=== PATIENT | female | born 1975 | race Caucasian/White ===

== ENCOUNTER 2020-08-04 08:24 | Inpatient (IN) | payer OTHER ==
[2020-08-04] MEDS ORDERED: ONDANSETRON *ODT* 4 MG TABLET SL PRN (09:48)
[2020-08-04] MEDS ORDERED: MAGNESIUM CITRATE 300 ML BOTTLE PO PRN (09:48)
[2020-08-04] MEDS ORDERED: MENTHOL/PHENOL 1 EACH UD MM PRN (09:48)
[2020-08-04] MEDS ORDERED: cloNIDine HCL 0.1 MG TABLET PO PRN (09:48)
[2020-08-04] MEDS ORDERED: ACETAMINOPHEN 325 MG TABLET (FP) PO PRN ×2 (09:48)
[2020-08-04] MEDS ORDERED: MAG HYDROX/AL HYDROX/SIMETH 30 ML UNIT-DOSE CUP PO PRN (09:48)
[2020-08-04] MEDS ORDERED: BISMUTH SUBSALICYLATE 524 MG/30 ML PO PRN (09:48)
[2020-08-04] MEDS ORDERED: MAGNESIUM HYDROX 2400MG/30ML ORAL SUSPENSION 30 ML CUP PO PRN (09:48)
[2020-08-04] MEDS ORDERED: IBUPROFEN 400 MG TABLET (FP) PO PRN (09:48)
[2020-08-04] MEDS ORDERED: hydrOXYzine PAMOATE 25 MG CAPSULE (FP) PO SCH (10:00)
[2020-08-04] MEDS ORDERED: METHADONE HCL 10 MG TABLET (FOR DETOX USE ONLY) PO ONE (10:00)
[2020-08-04] MEDS ORDERED: HYDROCORTISONE 0.5% TOPICAL OINTMENT TUBE TP PRN (10:13)
[2020-08-04] MEDS: PRENATAL VITAMINS W/ FOLIC ACID TABLET (FP) PO SCH (10:57)
[2020-08-04] MEDS ORDERED: HYDROCORTISONE 0.5% TOPICAL CREAM 30 GM TUBE TP PRN (13:12)
[2020-08-04 13:20] LABS: HEMOGLOBIN 11.7 GM/dL (10.7-15.3); MCH 27.3 pg (25.7-33.7); MCHC 33.4 g/dl (32.0-36.0); MEAN CELL VOLUME 81.6 fl (80-96); MEAN PLT VOLUME 8.2 fl (7.5-11.1); PLATELET COUNT 365 K/MM3 (134-434); RBC 4.29 M/mm3 (3.60-5.2); RDW 16.8 % (11.6-15.6); WHITE BLOOD COUNT 8.4 K/mm3 (4.0-10.0)
[2020-08-04 13:31] LABS: ALBUMIN 3.8 g/dl (3.4-5.0); CALCIUM 8.8 mg/dL (8.5-10.1)
[2020-08-04 13:32] LABS: BLOOD UREA NITROGEN 8.6 mg/dL (7-18)
[2020-08-04 13:35] LABS: CREATININE 0.7 mg/dL (0.55-1.3)
[2020-08-04 13:36] LABS: BILIRUBIN,TOTAL 0.3 mg/dL (0.2-1); TOT PROT 7.3 g/dl (6.4-8.2)
[2020-08-04] MEDS: MINOXIDIL 2.5 MG TABLET PO SCH ×2 (15:35→21:33)
[2020-08-04] MEDS: hydrOXYzine PAMOATE 25 MG CAPSULE (FP) PO PRN (17:36)
[2020-08-04] MEDS: METHOCARBAMOL 500 MG TABLET PO PRN (17:36)
[2020-08-04] MEDS: MONTELUKAST NA 10 MG TABLET PO SCH (21:32)
[2020-08-04] MEDS: QUEtiapine FUMARATE 50 MG TABLET PO SCH (21:32)
[2020-08-04] MEDS: THIAMINE HCL 100 MG TABLET (FP) PO SCH (21:32)
[2020-08-04] MEDS: MELATONIN 5 MG TABLETS PO SCH (21:33)
[2020-08-05] MEDS ORDERED: METHADONE HCL 10 MG TABLET (FOR DETOX USE ONLY) ONE (08:43)
[2020-08-05] MEDS ORDERED: METHADONE HCL 5 MG TABLET (FOR DETOX USE ONLY) ONE (08:43)
[2020-08-05] MEDS: MINOXIDIL 2.5 MG TABLET PO SCH ×2 (09:11→22:01)
[2020-08-05] MEDS: PRENATAL VITAMINS W/ FOLIC ACID TABLET (FP) PO SCH (09:12)
[2020-08-05] MEDS: THEOPHYLLINE ANHYDROUS 200 MG CAP.ER.24H PO SCH (09:12)
[2020-08-05] MEDS: hydrOXYzine PAMOATE 25 MG CAPSULE (FP) PO PRN (09:13)
[2020-08-05] MEDS: METHOCARBAMOL 500 MG TABLET PO PRN ×2 (09:13→17:21)
[2020-08-05] MEDS ORDERED: METHADONE (DETOX) 20 MG, METHADONE (DETOX) 5 MG PO ONE (10:00)
[2020-08-05] MEDS: diazePAM 5 MG TABLET PO PRN ×3 (11:52→22:03)
[2020-08-05] MEDS: QUEtiapine FUMARATE 50 MG TABLET PO SCH (22:01)
[2020-08-05] MEDS: MELATONIN 5 MG TABLETS PO SCH (22:02)
[2020-08-05] MEDS: THIAMINE HCL 100 MG TABLET (FP) PO SCH (22:02)
[2020-08-05] MEDS: MONTELUKAST NA 10 MG TABLET PO SCH (22:27)
[2020-08-06] MEDS ORDERED: METHADONE HCL 10 MG TABLET (FOR DETOX USE ONLY) PO ONE (10:00)
[2020-08-06] MEDS: diazePAM 5 MG TABLET PO PRN ×4 (10:16→22:40)
[2020-08-06] MEDS: hydrOXYzine PAMOATE 25 MG CAPSULE (FP) PO PRN (10:17)
[2020-08-06] MEDS: MINOXIDIL 2.5 MG TABLET PO SCH ×2 (10:17→22:17)
[2020-08-06] MEDS: THEOPHYLLINE ANHYDROUS 200 MG CAP.ER.24H PO SCH (10:17)
[2020-08-06] MEDS: METHOCARBAMOL 500 MG TABLET PO PRN ×2 (10:17→18:35)
[2020-08-06] MEDS: PRENATAL VITAMINS W/ FOLIC ACID TABLET (FP) PO SCH (10:17)
[2020-08-06] MEDS: HYDROCORTISONE 1% TOPICAL OINT 30 GM TUBE TP PRN (14:05)
[2020-08-06] MEDS: MELATONIN 5 MG TABLETS PO SCH (22:15)
[2020-08-06] MEDS: THIAMINE HCL 100 MG TABLET (FP) PO SCH (22:15)
[2020-08-06] MEDS: QUEtiapine FUMARATE 50 MG TABLET PO SCH (22:15)
[2020-08-06] MEDS: MONTELUKAST NA 10 MG TABLET PO SCH (22:16)
[2020-08-07] MEDS: METHOCARBAMOL 500 MG TABLET PO PRN ×3 (06:01→18:39)
[2020-08-07] MEDS: diazePAM 5 MG TABLET PO PRN ×5 (06:01→22:40)
[2020-08-07] MEDS: HYDROCORTISONE 1% TOPICAL OINT 30 GM TUBE TP PRN (09:04)
[2020-08-07] MEDS ORDERED: METHADONE HCL 5 MG TABLET (FOR DETOX USE ONLY) ONE (09:36)
[2020-08-07] MEDS ORDERED: METHADONE HCL 10 MG TABLET (FOR DETOX USE ONLY) ONE (09:36)
[2020-08-07] MEDS ORDERED: METHADONE (DETOX) 10 MG, METHADONE (DETOX) 5 MG PO ONE (10:00)
[2020-08-07] MEDS: MINOXIDIL 2.5 MG TABLET PO SCH ×2 (10:04→22:09)
[2020-08-07] MEDS: THEOPHYLLINE ANHYDROUS 200 MG CAP.ER.24H PO SCH (10:04)
[2020-08-07] MEDS: hydrOXYzine PAMOATE 25 MG CAPSULE (FP) PO PRN (10:04)
[2020-08-07] MEDS: PRENATAL VITAMINS W/ FOLIC ACID TABLET (FP) PO SCH (10:04)
[2020-08-07 16:07] LABS: SARS-CoV-2 NAA Not Detected (Not Detected)
[2020-08-07] MEDS: ALBUTEROL SO4 HFA INHALER IH PRN (19:38)
[2020-08-07] MEDS: MONTELUKAST NA 10 MG TABLET PO SCH (22:08)
[2020-08-07] MEDS: MELATONIN 5 MG TABLETS PO SCH (22:08)
[2020-08-07] MEDS: QUEtiapine FUMARATE 50 MG TABLET PO SCH (22:08)
[2020-08-07] MEDS: THIAMINE HCL 100 MG TABLET (FP) PO SCH (22:08)
[2020-08-08] MEDS: diazePAM 5 MG TABLET PO PRN (05:31)
[2020-08-08] MEDS: METHOCARBAMOL 500 MG TABLET PO PRN ×3 (05:31→17:41)
[2020-08-08] MEDS: PRENATAL VITAMINS W/ FOLIC ACID TABLET (FP) PO SCH (09:40)
[2020-08-08] MEDS: THEOPHYLLINE ANHYDROUS 200 MG CAP.ER.24H PO SCH (09:41)
[2020-08-08] MEDS: MINOXIDIL 2.5 MG TABLET PO SCH ×2 (09:41→22:05)
[2020-08-08] MEDS ORDERED: METHADONE HCL 10 MG TABLET (FOR DETOX USE ONLY) PO ONE (10:00)
[2020-08-08] MEDS: hydrOXYzine PAMOATE 25 MG CAPSULE (FP) PO PRN ×2 (11:05→17:40)
[2020-08-08] MEDS ORDERED: diazePAM 5 MG TABLET PO ONE (17:06)
[2020-08-08] MEDS: ALBUTEROL SO4 HFA INHALER IH PRN ×2 (17:39→22:05)
[2020-08-08] MEDS: THIAMINE HCL 100 MG TABLET (FP) PO SCH (22:05)
[2020-08-08] MEDS: MELATONIN 5 MG TABLETS PO SCH (22:05)
[2020-08-08] MEDS: MONTELUKAST NA 10 MG TABLET PO SCH (22:05)
[2020-08-08] MEDS: QUEtiapine FUMARATE 50 MG TABLET PO SCH (22:06)
[2020-08-09] MEDS: METHOCARBAMOL 500 MG TABLET PO PRN ×2 (05:52→11:32)
[2020-08-09] MEDS: hydrOXYzine PAMOATE 25 MG CAPSULE (FP) PO PRN (05:52)
[2020-08-09] MEDS ORDERED: METHADONE HCL 5 MG TABLET (FOR DETOX USE ONLY) PO ONE (06:00)
[2020-08-09] MEDS: MINOXIDIL 2.5 MG TABLET PO SCH (09:14)
[2020-08-09] MEDS: PRENATAL VITAMINS W/ FOLIC ACID TABLET (FP) PO SCH (09:15)
[2020-08-09] MEDS: THEOPHYLLINE ANHYDROUS 200 MG CAP.ER.24H PO SCH (09:15)
[2020-08-09 12:35] VITALS: BP 136/92; PULSE 100; TEMP 98.3
== END 2020-08-09 12:37 | disposition other institution (70) | DRG 773 ==
LOC: YASAS 08:24 → EDBD 08:24 → Y3N 10:01
PROVIDERS: ADMIT Allergy & Immunology; ATTEND Allergy & Immunology
PROC: HZ2ZZZZ Detoxification Services for Substance Abuse Treatment (ICD-10-PCS; principal; 2020-08-04)
DX: F11.23 Opioid dependence with withdrawal (principal); F14.20 Cocaine dependence, uncomplicated; F13.20 Sedative, hypnotic or anxiolytic dependence, uncomplicated; F12.20 Cannabis dependence, uncomplicated; F19.24 Other psychoactive substance dependence with psychoactive substance-induced mood disorder; F41.9 Anxiety disorder, unspecified; F32.9 Major depressive disorder, single episode, unspecified; F70 Mild intellectual disabilities; G47.00 Insomnia, unspecified; L30.9 Dermatitis, unspecified; L68.0 Hirsutism; L65.9 Nonscarring hair loss, unspecified; Z91.14 Patient's other noncompliance with medication regimen; Z88.0 Allergy status to penicillin; Z91.012 Allergy to eggs
CPT/HCPCS: 36415; 80053; 81025; 85027; 86780; C9803; J0735; U0003; U0005

== ENCOUNTER 2020-08-09 12:48 | Inpatient (IN) | payer OTHER ==
[2020-08-09] MEDS ORDERED: MENTHOL/PHENOL 1 EACH UD MM PRN (16:07)
[2020-08-09] MEDS ORDERED: LOPERAMIDE HCL 2 MG CAPSULE PO PRN (16:07)
[2020-08-09] MEDS ORDERED: P-EPHED 60MG/TRIPROLIDI 2.5MG TABLET PO PRN (16:07)
[2020-08-09] MEDS ORDERED: ACETAMINOPHEN 325 MG TABLET (FP) PO PRN (16:07)
[2020-08-09] MEDS ORDERED: MAGNESIUM HYDROX 2400MG/30ML ORAL SUSPENSION 30 ML CUP PO PRN (16:07)
[2020-08-09] MEDS ORDERED: MAG HYDROX/AL HYDROX/SIMETH 30 ML UNIT-DOSE CUP PO PRN (16:07)
[2020-08-09] MEDS ORDERED: NICOTINE POLACRILEX 2 MG GUM BUC PRN (16:07)
[2020-08-09] MEDS ORDERED: MAGNESIUM CITRATE 300 ML BOTTLE PO PRN (16:07)
[2020-08-09] MEDS: METHOCARBAMOL 500 MG TABLET PO SCH (21:55)
[2020-08-09] MEDS: QUEtiapine FUMARATE 50 MG TABLET PO SCH (21:55)
[2020-08-09] MEDS: THIAMINE HCL 100 MG TABLET (FP) PO SCH (21:56)
[2020-08-09] MEDS: MELATONIN 5 MG TABLETS PO SCH (21:56)
[2020-08-09] MEDS: BACITRACIN 0.9 GM PACKET TP SCH (21:57)
[2020-08-09] MEDS: hydrOXYzine PAMOATE 25 MG CAPSULE (FP) PO PRN (21:58)
[2020-08-10] MEDS: METHOCARBAMOL 500 MG TABLET PO SCH ×3 (06:15→21:21)
[2020-08-10] MEDS: PRENATAL VITAMINS W/ FOLIC ACID TABLET (FP) PO SCH (10:49)
[2020-08-10] MEDS: hydrOXYzine PAMOATE 25 MG CAPSULE (FP) PO PRN ×2 (10:49→13:47)
[2020-08-10] MEDS: IBUPROFEN 400 MG TABLET (FP) PO PRN (10:50)
[2020-08-10] MEDS: BACITRACIN 0.9 GM PACKET TP SCH ×2 (10:50→21:21)
[2020-08-10] MEDS: NICOTINE 7 MG/24 HOURS TOPICAL PATCH TD SCH (10:50)
[2020-08-10] MEDS ORDERED: PNEUMOC 13-VAL CONJ-DIP CRM/PF 0.5 ML DISP.SYRIN IM ONE (12:00)
[2020-08-10] MEDS ORDERED: PNEUMOCOCCAL 23 VACCINE 0.5 ML VIAL IM ONE (12:00)
[2020-08-10] MEDS: HYDROCORTISONE 1% TOPICAL CREAM 30 GM TUBE TP SCH ×2 (12:21→21:22)
[2020-08-10] MEDS: COLLOIDAL OATMEAL 1 BAR EACH TP PRN (14:08)
[2020-08-10] MEDS ORDERED: MINERAL OIL ENEMA 133 ML ENEMA PR ONE (19:22)
[2020-08-10] MEDS: QUEtiapine FUMARATE 50 MG TABLET PO SCH (21:21)
[2020-08-10] MEDS: MELATONIN 5 MG TABLETS PO SCH (21:21)
[2020-08-10] MEDS: DOCUSATE SODIUM 100 MG CAPSULE (FP) PO SCH (21:21)
[2020-08-10] MEDS: THIAMINE HCL 100 MG TABLET (FP) PO SCH (21:21)
[2020-08-11] MEDS: METHOCARBAMOL 500 MG TABLET PO SCH ×3 (06:11→21:18)
[2020-08-11] MEDS: BACITRACIN 0.9 GM PACKET TP SCH ×2 (10:42→21:16)
[2020-08-11] MEDS: NICOTINE 7 MG/24 HOURS TOPICAL PATCH TD SCH (10:43)
[2020-08-11] MEDS: IBUPROFEN 400 MG TABLET (FP) PO PRN (10:43)
[2020-08-11] MEDS: PRENATAL VITAMINS W/ FOLIC ACID TABLET (FP) PO SCH (10:43)
[2020-08-11] MEDS: TETRAHYDROZOLINE HCL EYE DROPS OD PRN (10:44)
[2020-08-11] MEDS: hydrOXYzine PAMOATE 25 MG CAPSULE (FP) PO PRN ×3 (10:44→21:16)
[2020-08-11] MEDS: HYDROCORTISONE 1% TOPICAL CREAM 30 GM TUBE TP SCH (10:48)
[2020-08-11] MEDS: HYDROCORTISONE 1% TOPICAL OINT 30 GM TUBE TP SCH ×2 (12:17→21:17)
[2020-08-11] MEDS: MELATONIN 5 MG TABLETS PO SCH (21:16)
[2020-08-11] MEDS: QUEtiapine FUMARATE 50 MG TABLET PO SCH (21:16)
[2020-08-11] MEDS: DOCUSATE SODIUM 100 MG CAPSULE (FP) PO SCH (21:16)
[2020-08-11] MEDS: THIAMINE HCL 100 MG TABLET (FP) PO SCH (21:16)
[2020-08-12] MEDS: METHOCARBAMOL 500 MG TABLET PO SCH ×3 (06:22→22:07)
[2020-08-12] MEDS: HYDROCORTISONE 1% TOPICAL OINT 30 GM TUBE TP SCH ×2 (10:49→22:06)
[2020-08-12] MEDS: PRENATAL VITAMINS W/ FOLIC ACID TABLET (FP) PO SCH (10:49)
[2020-08-12] MEDS: hydrOXYzine PAMOATE 25 MG CAPSULE (FP) PO PRN ×2 (10:49→14:34)
[2020-08-12] MEDS: BACITRACIN 0.9 GM PACKET TP SCH ×2 (10:49→22:06)
[2020-08-12] MEDS: NICOTINE 7 MG/24 HOURS TOPICAL PATCH TD SCH (10:49)
[2020-08-12] MEDS: TETRAHYDROZOLINE HCL EYE DROPS OD PRN (10:50)
[2020-08-12] MEDS ORDERED: BUPRENORPHINE/NALOXONE 2 MG/0.5 MG FILM PACKET SL ONE (12:30)
[2020-08-12] MEDS: MINOXIDIL 2.5 MG TABLET PO SCH ×2 (14:35→22:07)
[2020-08-12] MEDS: DOCUSATE SODIUM 100 MG CAPSULE (FP) PO SCH (22:07)
[2020-08-12] MEDS: QUEtiapine FUMARATE 50 MG TABLET PO SCH (22:07)
[2020-08-12] MEDS: THIAMINE HCL 100 MG TABLET (FP) PO SCH (22:07)
[2020-08-12] MEDS: MELATONIN 5 MG TABLETS PO SCH (22:08)
[2020-08-12] MEDS: MONTELUKAST NA 10 MG TABLET PO SCH (22:10)
[2020-08-13] MEDS: METHOCARBAMOL 500 MG TABLET PO SCH ×3 (06:25→22:06)
[2020-08-13] MEDS ORDERED: PT OWN MED DRAWER 7, Y5N ONE ×2 (09:09→21:06)
[2020-08-13] MEDS: PRENATAL VITAMINS W/ FOLIC ACID TABLET (FP) PO SCH (10:35)
[2020-08-13] MEDS: BACITRACIN 0.9 GM PACKET TP SCH ×2 (10:35→22:09)
[2020-08-13] MEDS: HYDROCORTISONE 1% TOPICAL OINT 30 GM TUBE TP SCH ×2 (10:36→22:09)
[2020-08-13] MEDS: MINOXIDIL 2.5 MG TABLET PO SCH ×2 (10:37→22:09)
[2020-08-13] MEDS: NICOTINE 7 MG/24 HOURS TOPICAL PATCH TD SCH (10:38)
[2020-08-13] MEDS: BUPRENORPHINE/NALOXONE 4 MG/1 MG FILM PACKET SL SCH ×2 (10:38→22:08)
[2020-08-13] MEDS: hydrOXYzine PAMOATE 25 MG CAPSULE (FP) PO PRN (10:39)
[2020-08-13] MEDS ORDERED: MASKS NR ONE (17:26)
[2020-08-13] MEDS: MELATONIN 5 MG TABLETS PO SCH (22:05)
[2020-08-13] MEDS: MONTELUKAST NA 10 MG TABLET PO SCH (22:05)
[2020-08-13] MEDS: DOCUSATE SODIUM 100 MG CAPSULE (FP) PO SCH (22:05)
[2020-08-13] MEDS: QUEtiapine FUMARATE 50 MG TABLET PO SCH (22:05)
[2020-08-13] MEDS: THIAMINE HCL 100 MG TABLET (FP) PO SCH (22:06)
[2020-08-14] MEDS: METHOCARBAMOL 500 MG TABLET PO SCH ×3 (06:43→21:09)
[2020-08-14] MEDS: PRENATAL VITAMINS W/ FOLIC ACID TABLET (FP) PO SCH (10:47)
[2020-08-14] MEDS: NICOTINE 7 MG/24 HOURS TOPICAL PATCH TD SCH (10:47)
[2020-08-14] MEDS: BUPRENORPHINE/NALOXONE 4 MG/1 MG FILM PACKET SL SCH ×2 (10:48→21:09)
[2020-08-14] MEDS: MINOXIDIL 2.5 MG TABLET PO SCH ×2 (10:48→21:12)
[2020-08-14] MEDS: BACITRACIN 0.9 GM PACKET TP SCH ×2 (10:48→21:10)
[2020-08-14] MEDS: HYDROCORTISONE 1% TOPICAL OINT 30 GM TUBE TP SCH ×2 (10:49→21:11)
[2020-08-14 10:58] LABS: HIV INTERPRETATION NEGATIVE (NEGATIVE)
[2020-08-14] MEDS: ALBUTEROL SO4 HFA INHALER IH PRN (18:16)
[2020-08-14] MEDS: hydrOXYzine PAMOATE 25 MG CAPSULE (FP) PO PRN (20:17)
[2020-08-14] MEDS: MONTELUKAST NA 10 MG TABLET PO SCH (21:09)
[2020-08-14] MEDS: MELATONIN 5 MG TABLETS PO SCH (21:09)
[2020-08-14] MEDS: QUEtiapine FUMARATE 50 MG TABLET PO SCH (21:09)
[2020-08-14] MEDS: DOCUSATE SODIUM 100 MG CAPSULE (FP) PO SCH (21:09)
[2020-08-14] MEDS: THIAMINE HCL 100 MG TABLET (FP) PO SCH (21:11)
[2020-08-14] MEDS ORDERED: PT OWN MED DRAWER 7, Y5N ONE (21:12)
[2020-08-15] MEDS: METHOCARBAMOL 500 MG TABLET PO SCH ×3 (06:23→21:13)
[2020-08-15] MEDS: PRENATAL VITAMINS W/ FOLIC ACID TABLET (FP) PO SCH (10:14)
[2020-08-15] MEDS: BUPRENORPHINE/NALOXONE 4 MG/1 MG FILM PACKET SL SCH ×2 (10:14→21:12)
[2020-08-15] MEDS: guaiFENesin 200 MG/10 ML 10 ML UNIT-DOSE CUPS PO PRN ×2 (10:14→21:51)
[2020-08-15] MEDS: NICOTINE 7 MG/24 HOURS TOPICAL PATCH TD SCH (10:15)
[2020-08-15] MEDS: HYDROCORTISONE 1% TOPICAL OINT 30 GM TUBE TP SCH ×2 (10:15→21:14)
[2020-08-15] MEDS: BACITRACIN 0.9 GM PACKET TP SCH ×2 (10:15→21:14)
[2020-08-15] MEDS: MINOXIDIL 2.5 MG TABLET PO SCH ×2 (10:15→21:13)
[2020-08-15] MEDS: COLLOIDAL OATMEAL 1 BAR EACH TP PRN (14:02)
[2020-08-15] MEDS: THIAMINE HCL 100 MG TABLET (FP) PO SCH (21:11)
[2020-08-15] MEDS: MELATONIN 5 MG TABLETS PO SCH (21:11)
[2020-08-15] MEDS: MONTELUKAST NA 10 MG TABLET PO SCH (21:13)
[2020-08-15] MEDS: DOCUSATE SODIUM 100 MG CAPSULE (FP) PO SCH (21:13)
[2020-08-15] MEDS: QUEtiapine FUMARATE 200 MG TABLET PO SCH (21:14)
[2020-08-16] MEDS: hydrOXYzine PAMOATE 25 MG CAPSULE (FP) PO PRN ×3 (06:12→13:53)
[2020-08-16] MEDS: METHOCARBAMOL 500 MG TABLET PO SCH ×3 (06:12→21:44)
[2020-08-16] MEDS: BUPRENORPHINE/NALOXONE 4 MG/1 MG FILM PACKET SL SCH ×3 (10:23→21:47)
[2020-08-16] MEDS: PRENATAL VITAMINS W/ FOLIC ACID TABLET (FP) PO SCH (10:23)
[2020-08-16] MEDS: NICOTINE 7 MG/24 HOURS TOPICAL PATCH TD SCH (10:23)
[2020-08-16] MEDS: HYDROCORTISONE 1% TOPICAL OINT 30 GM TUBE TP SCH ×2 (10:24→21:45)
[2020-08-16] MEDS: BACITRACIN 0.9 GM PACKET TP SCH ×2 (10:24→21:43)
[2020-08-16] MEDS: MINOXIDIL 2.5 MG TABLET PO SCH ×2 (10:24→21:45)
[2020-08-16] MEDS: ALBUTEROL SO4 HFA INHALER IH PRN (18:15)
[2020-08-16] MEDS: DOCUSATE SODIUM 100 MG CAPSULE (FP) PO SCH (21:43)
[2020-08-16] MEDS: MELATONIN 5 MG TABLETS PO SCH (21:44)
[2020-08-16] MEDS: THIAMINE HCL 100 MG TABLET (FP) PO SCH (21:44)
[2020-08-16] MEDS: MONTELUKAST NA 10 MG TABLET PO SCH (21:44)
[2020-08-16] MEDS: QUEtiapine FUMARATE 200 MG TABLET PO SCH (21:44)
[2020-08-16] MEDS: guaiFENesin 200 MG/10 ML 10 ML UNIT-DOSE CUPS PO PRN (21:48)
[2020-08-17] MEDS: METHOCARBAMOL 500 MG TABLET PO SCH ×3 (06:26→21:17)
[2020-08-17] MEDS: BUPRENORPHINE/NALOXONE 4 MG/1 MG FILM PACKET SL SCH ×3 (06:26→21:18)
[2020-08-17] MEDS: BACITRACIN 0.9 GM PACKET TP SCH ×3 (09:58→21:19)
[2020-08-17] MEDS: PRENATAL VITAMINS W/ FOLIC ACID TABLET (FP) PO SCH (09:58)
[2020-08-17] MEDS: MINOXIDIL 2.5 MG TABLET PO SCH ×2 (09:58→21:18)
[2020-08-17] MEDS: HYDROCORTISONE 1% TOPICAL OINT 30 GM TUBE TP SCH ×2 (09:59→21:20)
[2020-08-17] MEDS: NICOTINE 7 MG/24 HOURS TOPICAL PATCH TD SCH (09:59)
[2020-08-17] MEDS: guaiFENesin 200 MG/10 ML 10 ML UNIT-DOSE CUPS PO PRN (14:05)
[2020-08-17] MEDS: hydrOXYzine PAMOATE 25 MG CAPSULE (FP) PO PRN (14:05)
[2020-08-17] MEDS: MONTELUKAST NA 10 MG TABLET PO SCH (21:17)
[2020-08-17] MEDS: DOCUSATE SODIUM 100 MG CAPSULE (FP) PO SCH (21:17)
[2020-08-17] MEDS: MELATONIN 5 MG TABLETS PO SCH (21:17)
[2020-08-17] MEDS: QUEtiapine FUMARATE 200 MG TABLET PO SCH (21:17)
[2020-08-17] MEDS: THIAMINE HCL 100 MG TABLET (FP) PO SCH (21:17)
[2020-08-18] MEDS: METHOCARBAMOL 500 MG TABLET PO SCH ×3 (06:17→21:07)
[2020-08-18] MEDS: BUPRENORPHINE/NALOXONE 4 MG/1 MG FILM PACKET SL SCH ×3 (06:17→21:06)
[2020-08-18] MEDS: PRENATAL VITAMINS W/ FOLIC ACID TABLET (FP) PO SCH (10:16)
[2020-08-18] MEDS: hydrOXYzine PAMOATE 25 MG CAPSULE (FP) PO PRN (10:16)
[2020-08-18] MEDS: BACITRACIN 0.9 GM PACKET TP SCH ×3 (10:17→21:08)
[2020-08-18] MEDS: MINOXIDIL 2.5 MG TABLET PO SCH ×2 (10:17→21:07)
[2020-08-18] MEDS: NICOTINE 7 MG/24 HOURS TOPICAL PATCH TD SCH (10:17)
[2020-08-18] MEDS: HYDROCORTISONE 1% TOPICAL OINT 30 GM TUBE TP SCH (10:17)
[2020-08-18] MEDS: MONTELUKAST NA 10 MG TABLET PO SCH (21:07)
[2020-08-18] MEDS: QUEtiapine FUMARATE 200 MG TABLET PO SCH (21:07)
[2020-08-18] MEDS: THIAMINE HCL 100 MG TABLET (FP) PO SCH (21:07)
[2020-08-18] MEDS: MELATONIN 5 MG TABLETS PO SCH (21:07)
[2020-08-18] MEDS: DOCUSATE SODIUM 100 MG CAPSULE (FP) PO SCH (21:08)
[2020-08-19] MEDS: BUPRENORPHINE/NALOXONE 4 MG/1 MG FILM PACKET SL SCH (06:24)
[2020-08-19] MEDS: METHOCARBAMOL 500 MG TABLET PO SCH ×3 (06:24→21:23)
[2020-08-19] MEDS ORDERED: ONDANSETRON *ODT* 4 MG TABLET SL PRN (08:40)
[2020-08-19] MEDS ORDERED: BUPRENORPHINE/NALOXONE 4 MG/1 MG FILM PACKET SL ONE (10:00)
[2020-08-19] MEDS: NICOTINE 7 MG/24 HOURS TOPICAL PATCH TD SCH (10:11)
[2020-08-19] MEDS: MINOXIDIL 2.5 MG TABLET PO SCH ×2 (10:11→21:23)
[2020-08-19] MEDS: PRENATAL VITAMINS W/ FOLIC ACID TABLET (FP) PO SCH (10:11)
[2020-08-19] MEDS: BACITRACIN 0.9 GM PACKET TP SCH ×3 (10:12→21:24)
[2020-08-19] MEDS: IBUPROFEN 400 MG TABLET (FP) PO PRN (17:09)
[2020-08-19] MEDS: BUPRENORPHINE/NALOXONE 8 MG/2 MG FILM PACKET SL SCH (17:10)
[2020-08-19] MEDS: DOCUSATE SODIUM 100 MG CAPSULE (FP) PO SCH (21:23)
[2020-08-19] MEDS: QUEtiapine FUMARATE 200 MG TABLET PO SCH (21:23)
[2020-08-19] MEDS: THIAMINE HCL 100 MG TABLET (FP) PO SCH (21:23)
[2020-08-19] MEDS: MELATONIN 5 MG TABLETS PO SCH (21:23)
[2020-08-19] MEDS: MONTELUKAST NA 10 MG TABLET PO SCH (21:23)
[2020-08-20] MEDS: METHOCARBAMOL 500 MG TABLET PO SCH ×3 (06:08→21:13)
[2020-08-20] MEDS: MINOXIDIL 2.5 MG TABLET PO SCH ×2 (10:17→21:15)
[2020-08-20] MEDS: BACITRACIN 0.9 GM PACKET TP SCH ×3 (10:17→21:15)
[2020-08-20] MEDS: PRENATAL VITAMINS W/ FOLIC ACID TABLET (FP) PO SCH (10:17)
[2020-08-20] MEDS: NICOTINE 7 MG/24 HOURS TOPICAL PATCH TD SCH (10:18)
[2020-08-20] MEDS: BUPRENORPHINE/NALOXONE 8 MG/2 MG FILM PACKET SL SCH ×2 (10:18→17:11)
[2020-08-20] MEDS: hydrOXYzine PAMOATE 25 MG CAPSULE (FP) PO PRN ×2 (13:41→21:14)
[2020-08-20] MEDS: THIAMINE HCL 100 MG TABLET (FP) PO SCH (21:11)
[2020-08-20] MEDS: SUVOREXANT 10 MG TABLET PO PRN (21:12)
[2020-08-20] MEDS: DOCUSATE SODIUM 100 MG CAPSULE (FP) PO SCH (21:12)
[2020-08-20] MEDS: MONTELUKAST NA 10 MG TABLET PO SCH (21:13)
[2020-08-20] MEDS: QUEtiapine FUMARATE 200 MG TABLET PO SCH (21:13)
[2020-08-21] MEDS: METHOCARBAMOL 500 MG TABLET PO SCH ×3 (06:16→21:37)
[2020-08-21] MEDS: BUPRENORPHINE/NALOXONE 8 MG/2 MG FILM PACKET SL SCH ×2 (10:24→17:45)
[2020-08-21] MEDS: PRENATAL VITAMINS W/ FOLIC ACID TABLET (FP) PO SCH (10:24)
[2020-08-21] MEDS: BACITRACIN 0.9 GM PACKET TP SCH ×3 (10:24→21:36)
[2020-08-21] MEDS: NICOTINE 7 MG/24 HOURS TOPICAL PATCH TD SCH (10:25)
[2020-08-21] MEDS: MINOXIDIL 2.5 MG TABLET PO SCH ×2 (10:25→21:37)
[2020-08-21] MEDS: hydrOXYzine PAMOATE 25 MG CAPSULE (FP) PO PRN ×2 (10:26→13:45)
[2020-08-21] MEDS: ALBUTEROL SO4 HFA INHALER IH PRN (10:27)
[2020-08-21] MEDS: COLLOIDAL OATMEAL 1 BAR EACH TP PRN (17:57)
[2020-08-21] MEDS: THIAMINE HCL 100 MG TABLET (FP) PO SCH (21:37)
[2020-08-21] MEDS: QUEtiapine FUMARATE 200 MG TABLET PO SCH (21:37)
[2020-08-21] MEDS: MONTELUKAST NA 10 MG TABLET PO SCH (21:37)
[2020-08-21] MEDS: DOCUSATE SODIUM 100 MG CAPSULE (FP) PO SCH (21:39)
[2020-08-21] MEDS: SUVOREXANT 10 MG TABLET PO PRN (21:39)
[2020-08-22] MEDS: METHOCARBAMOL 500 MG TABLET PO SCH ×3 (06:33→21:16)
[2020-08-22] MEDS: BUPRENORPHINE/NALOXONE 8 MG/2 MG FILM PACKET SL SCH ×2 (10:08→17:46)
[2020-08-22] MEDS: MINOXIDIL 2.5 MG TABLET PO SCH ×2 (10:08→21:17)
[2020-08-22] MEDS: PRENATAL VITAMINS W/ FOLIC ACID TABLET (FP) PO SCH (10:08)
[2020-08-22] MEDS: BACITRACIN 0.9 GM PACKET TP SCH ×3 (10:08→21:17)
[2020-08-22] MEDS: NICOTINE 7 MG/24 HOURS TOPICAL PATCH TD SCH (10:08)
[2020-08-22] MEDS: hydrOXYzine PAMOATE 25 MG CAPSULE (FP) PO PRN ×2 (10:09→13:43)
[2020-08-22] MEDS ORDERED: PT OWN MED DRAWER 7, Y5N ONE (14:15)
[2020-08-22] MEDS: QUEtiapine FUMARATE 200 MG TABLET PO SCH (21:15)
[2020-08-22] MEDS: SUVOREXANT 10 MG TABLET PO PRN (21:15)
[2020-08-22] MEDS: THIAMINE HCL 100 MG TABLET (FP) PO SCH (21:15)
[2020-08-22] MEDS: MONTELUKAST NA 10 MG TABLET PO SCH (21:16)
[2020-08-22] MEDS: DOCUSATE SODIUM 100 MG CAPSULE (FP) PO SCH (21:17)
[2020-08-23] MEDS: METHOCARBAMOL 500 MG TABLET PO SCH ×3 (06:32→21:31)
[2020-08-23] MEDS: BACITRACIN 0.9 GM PACKET TP SCH ×3 (10:12→21:31)
[2020-08-23] MEDS: PRENATAL VITAMINS W/ FOLIC ACID TABLET (FP) PO SCH (10:13)
[2020-08-23] MEDS: BUPRENORPHINE/NALOXONE 8 MG/2 MG FILM PACKET SL SCH ×2 (10:13→17:55)
[2020-08-23] MEDS: MINOXIDIL 2.5 MG TABLET PO SCH ×2 (10:13→21:31)
[2020-08-23] MEDS: NICOTINE 7 MG/24 HOURS TOPICAL PATCH TD SCH (10:13)
[2020-08-23] MEDS: QUEtiapine FUMARATE 200 MG TABLET PO SCH (21:31)
[2020-08-23] MEDS: MONTELUKAST NA 10 MG TABLET PO SCH (21:31)
[2020-08-23] MEDS: THIAMINE HCL 100 MG TABLET (FP) PO SCH (21:31)
[2020-08-23] MEDS: DOCUSATE SODIUM 100 MG CAPSULE (FP) PO SCH (21:31)
[2020-08-23] MEDS: SUVOREXANT 10 MG TABLET PO PRN (21:33)
[2020-08-24] MEDS: METHOCARBAMOL 500 MG TABLET PO SCH ×3 (06:09→21:09)
[2020-08-24] MEDS: BACITRACIN 0.9 GM PACKET TP SCH ×3 (10:12→21:12)
[2020-08-24] MEDS: hydrOXYzine PAMOATE 25 MG CAPSULE (FP) PO PRN ×3 (10:12→21:09)
[2020-08-24] MEDS: PRENATAL VITAMINS W/ FOLIC ACID TABLET (FP) PO SCH (10:12)
[2020-08-24] MEDS: BUPRENORPHINE/NALOXONE 8 MG/2 MG FILM PACKET SL SCH ×2 (10:13→17:55)
[2020-08-24] MEDS: NICOTINE 7 MG/24 HOURS TOPICAL PATCH TD SCH (10:13)
[2020-08-24] MEDS: MINOXIDIL 2.5 MG TABLET PO SCH ×2 (10:13→21:10)
[2020-08-24] MEDS: QUEtiapine FUMARATE 200 MG TABLET PO SCH (21:09)
[2020-08-24] MEDS: DOCUSATE SODIUM 100 MG CAPSULE (FP) PO SCH (21:09)
[2020-08-24] MEDS: MONTELUKAST NA 10 MG TABLET PO SCH (21:09)
[2020-08-24] MEDS: THIAMINE HCL 100 MG TABLET (FP) PO SCH (21:09)
[2020-08-24] MEDS: SUVOREXANT 10 MG TABLET PO PRN (21:12)
[2020-08-25] MEDS: METHOCARBAMOL 500 MG TABLET PO SCH ×3 (06:18→21:27)
[2020-08-25] MEDS: hydrOXYzine PAMOATE 25 MG CAPSULE (FP) PO PRN ×3 (10:19→21:27)
[2020-08-25] MEDS: PRENATAL VITAMINS W/ FOLIC ACID TABLET (FP) PO SCH (10:19)
[2020-08-25] MEDS: BACITRACIN 0.9 GM PACKET TP SCH ×3 (10:19→21:27)
[2020-08-25] MEDS: NICOTINE 7 MG/24 HOURS TOPICAL PATCH TD SCH (10:20)
[2020-08-25] MEDS: MINOXIDIL 2.5 MG TABLET PO SCH ×2 (10:20→21:26)
[2020-08-25] MEDS: BUPRENORPHINE/NALOXONE 8 MG/2 MG FILM PACKET SL SCH ×3 (10:21→17:03)
[2020-08-25] MEDS ORDERED: BUPRENORPHINE/NALOXONE 8 MG/2 MG FILM (DETOX) SL ONE (10:36)
[2020-08-25] MEDS ORDERED: COVID-19 VAC,AD26(JANSSEN)/PF 0.5 ML IM ONE (11:00)
[2020-08-25] MEDS ORDERED: BUPRENORPHINE/NALOXONE 8 MG/2 MG FILM PACKET SL SCH (18:00)
[2020-08-25] MEDS: THIAMINE HCL 100 MG TABLET (FP) PO SCH (21:27)
[2020-08-25] MEDS: QUEtiapine FUMARATE 200 MG TABLET PO SCH (21:27)
[2020-08-25] MEDS: DOCUSATE SODIUM 100 MG CAPSULE (FP) PO SCH (21:27)
[2020-08-25] MEDS: MONTELUKAST NA 10 MG TABLET PO SCH (21:27)
[2020-08-25] MEDS: HYDROCORTISONE 1% TOPICAL CREAM 30 GM TUBE TP PRN (21:28)
[2020-08-25] MEDS: SUVOREXANT 20 MG TABLET PO PRN (21:28)
[2020-08-26] MEDS: METHOCARBAMOL 500 MG TABLET PO SCH ×3 (06:13→21:14)
[2020-08-26] MEDS: hydrOXYzine PAMOATE 25 MG CAPSULE (FP) PO PRN ×2 (10:12→14:20)
[2020-08-26] MEDS: PRENATAL VITAMINS W/ FOLIC ACID TABLET (FP) PO SCH (10:12)
[2020-08-26] MEDS: BACITRACIN 0.9 GM PACKET TP SCH ×3 (10:13→21:13)
[2020-08-26] MEDS: NICOTINE 7 MG/24 HOURS TOPICAL PATCH TD SCH (10:13)
[2020-08-26] MEDS: MINOXIDIL 2.5 MG TABLET PO SCH ×2 (10:13→21:16)
[2020-08-26] MEDS: BUPRENORPHINE/NALOXONE 8 MG/2 MG FILM PACKET SL SCH ×2 (10:13→18:32)
[2020-08-26] MEDS: HYDROCORTISONE 1% TOPICAL CREAM 30 GM TUBE TP PRN (10:15)
[2020-08-26] MEDS: COLLOIDAL OATMEAL 1 BAR EACH TP PRN (16:08)
[2020-08-26] MEDS: MONTELUKAST NA 10 MG TABLET PO SCH (21:14)
[2020-08-26] MEDS: QUEtiapine FUMARATE 200 MG TABLET PO SCH (21:14)
[2020-08-26] MEDS: DOCUSATE SODIUM 100 MG CAPSULE (FP) PO SCH (21:14)
[2020-08-26] MEDS: SUVOREXANT 20 MG TABLET PO PRN (21:15)
[2020-08-26] MEDS: THIAMINE HCL 100 MG TABLET (FP) PO SCH (21:15)
[2020-08-27] MEDS: METHOCARBAMOL 500 MG TABLET PO SCH ×3 (06:19→21:36)
[2020-08-27] MEDS: PRENATAL VITAMINS W/ FOLIC ACID TABLET (FP) PO SCH (09:48)
[2020-08-27] MEDS: BUPRENORPHINE/NALOXONE 8 MG/2 MG FILM PACKET SL SCH ×2 (09:49→17:44)
[2020-08-27] MEDS: MINOXIDIL 2.5 MG TABLET PO SCH ×2 (09:49→21:36)
[2020-08-27] MEDS: HYDROCORTISONE 1% TOPICAL CREAM 30 GM TUBE TP PRN (09:49)
[2020-08-27] MEDS: BACITRACIN 0.9 GM PACKET TP SCH ×3 (09:49→21:36)
[2020-08-27] MEDS: NICOTINE 7 MG/24 HOURS TOPICAL PATCH TD SCH (10:49)
[2020-08-27] MEDS: hydrOXYzine PAMOATE 25 MG CAPSULE (FP) PO PRN (13:57)
[2020-08-27] MEDS: DOCUSATE SODIUM 100 MG CAPSULE (FP) PO SCH (21:35)
[2020-08-27] MEDS: SUVOREXANT 20 MG TABLET PO PRN (21:35)
[2020-08-27] MEDS: MONTELUKAST NA 10 MG TABLET PO SCH (21:36)
[2020-08-27] MEDS: QUEtiapine FUMARATE 200 MG TABLET PO SCH (21:36)
[2020-08-27] MEDS: THIAMINE HCL 100 MG TABLET (FP) PO SCH (21:37)
[2020-08-28] MEDS: METHOCARBAMOL 500 MG TABLET PO SCH ×3 (06:08→21:16)
[2020-08-28] MEDS: PRENATAL VITAMINS W/ FOLIC ACID TABLET (FP) PO SCH (10:02)
[2020-08-28] MEDS: MINOXIDIL 2.5 MG TABLET PO SCH ×2 (10:03→21:16)
[2020-08-28] MEDS: BUPRENORPHINE/NALOXONE 8 MG/2 MG FILM PACKET SL SCH ×2 (10:03→17:46)
[2020-08-28] MEDS: HYDROCORTISONE 1% TOPICAL CREAM 30 GM TUBE TP PRN (10:03)
[2020-08-28] MEDS: BACITRACIN 0.9 GM PACKET TP SCH ×3 (10:03→21:17)
[2020-08-28] MEDS: NICOTINE 7 MG/24 HOURS TOPICAL PATCH TD SCH (10:03)
[2020-08-28] MEDS: THIAMINE HCL 100 MG TABLET (FP) PO SCH (21:16)
[2020-08-28] MEDS: QUEtiapine FUMARATE 200 MG TABLET PO SCH (21:16)
[2020-08-28] MEDS: MONTELUKAST NA 10 MG TABLET PO SCH (21:16)
[2020-08-28] MEDS: DOCUSATE SODIUM 100 MG CAPSULE (FP) PO SCH (21:16)
[2020-08-28] MEDS ORDERED: SUVOREXANT 20 MG TABLET PO PRN (22:00)
[2020-08-29] MEDS: METHOCARBAMOL 500 MG TABLET PO SCH ×3 (06:07→21:41)
[2020-08-29] MEDS: HYDROCORTISONE 1% TOPICAL CREAM 30 GM TUBE TP PRN (10:15)
[2020-08-29] MEDS: BUPRENORPHINE/NALOXONE 8 MG/2 MG FILM PACKET SL SCH ×2 (10:15→17:13)
[2020-08-29] MEDS: BACITRACIN 0.9 GM PACKET TP SCH ×3 (10:15→21:39)
[2020-08-29] MEDS: PRENATAL VITAMINS W/ FOLIC ACID TABLET (FP) PO SCH (10:15)
[2020-08-29] MEDS: MINOXIDIL 2.5 MG TABLET PO SCH ×2 (10:15→21:40)
[2020-08-29] MEDS: NICOTINE 7 MG/24 HOURS TOPICAL PATCH TD SCH (10:15)
[2020-08-29] MEDS: DOCUSATE SODIUM 100 MG CAPSULE (FP) PO SCH (21:39)
[2020-08-29] MEDS: MONTELUKAST NA 10 MG TABLET PO SCH (21:40)
[2020-08-29] MEDS: QUEtiapine FUMARATE 200 MG TABLET PO SCH (21:40)
[2020-08-29] MEDS: THIAMINE HCL 100 MG TABLET (FP) PO SCH (21:41)
[2020-08-29] MEDS: COLLOIDAL OATMEAL 1 BAR EACH TP PRN (21:43)
[2020-08-30] MEDS: METHOCARBAMOL 500 MG TABLET PO SCH (06:12)
[2020-08-30 07:19] VITALS: BP 134/89; PULSE 103; TEMP 97.8
[2020-08-30] MEDS: NICOTINE 7 MG/24 HOURS TOPICAL PATCH TD SCH (09:35)
[2020-08-30] MEDS: MINOXIDIL 2.5 MG TABLET PO SCH (09:35)
[2020-08-30] MEDS: PRENATAL VITAMINS W/ FOLIC ACID TABLET (FP) PO SCH (09:35)
[2020-08-30] MEDS: hydrOXYzine PAMOATE 25 MG CAPSULE (FP) PO PRN (09:35)
[2020-08-30] MEDS: BACITRACIN 0.9 GM PACKET TP SCH ×2 (09:35)
[2020-08-30] MEDS: BUPRENORPHINE/NALOXONE 8 MG/2 MG FILM PACKET SL SCH (09:35)
== END 2020-08-30 09:58 | disposition home or self-care (01) | DRG 772 ==
LOC: YASAS 12:48 → Y5N 12:49 → Y3W 08-14 23:38
PROVIDERS: ADMIT Allergy & Immunology; ATTEND Allergy & Immunology
PROC: HZ42ZZZ Group Counseling for Substance Abuse Treatment, Cognitive-Behavioral (ICD-10-PCS; principal; 2020-08-09)
DX: F11.20 Opioid dependence, uncomplicated (principal); F13.20 Sedative, hypnotic or anxiolytic dependence, uncomplicated; F14.20 Cocaine dependence, uncomplicated; F12.20 Cannabis dependence, uncomplicated; N89.8 Other specified noninflammatory disorders of vagina; M25.512 Pain in left shoulder; S00.01XA Abrasion of scalp, initial encounter; Y04.1XXA Assault by human bite, initial encounter; Y93.9 Activity, unspecified; Y92.239 Unspecified place in hospital as the place of occurrence of the external cause; Z88.0 Allergy status to penicillin; Z91.012 Allergy to eggs
CPT/HCPCS: 0031A; 36415; 87389; 87491; 87591; 87661; 90732; 91303; G0009

== ENCOUNTER 2021-02-07 04:52 | Inpatient (IN) | payer OTHER ==
[2021-02-07] MEDS ORDERED: MAGNESIUM SULFATE IN WATER 2 GM/50 ML IVPB IVPB ONE (05:13)
[2021-02-07] MEDS ORDERED: ALBUTEROL SO4 2.5/IPRATROPIUM 0.5 INH SOL 3 ML VIAL.NEB. NEB ONE ×2 (05:13→06:08)
[2021-02-07] MEDS ORDERED: MAGNESIUM SULF 50% (8.12 MEQ/2 ML-1 GM VIAL) IVPB ONE (05:20)
[2021-02-07] MEDS: ALBUTEROL SO4 2.5/IPRATROPIUM 0.5 INH SOL 3 ML VIAL.NEB. NEB SCH ×3 (05:32→06:14)
[2021-02-07 06:46] LABS: BASO % 0.6 % (0-2.0); EOS % 3.7 % (0-4.5); HEMATOCRIT 34.4 % (32.4-45.2); HEMOGLOBIN 11.1 GM/dL (10.7-15.3); LYMPH % 13.3 % (8-40); MCH 23.4 pg (25.7-33.7); MCHC 32.3 g/dl (32.0-36.0); MEAN CELL VOLUME 72.6 fl (80-96); MEAN PLT VOLUME 7.4 fl (7.5-11.1); MONO % 3.2 % (3.8-10.2); NEUT % 79.2 % (42.8-82.8); PLATELET COUNT 434 10^3/uL (134-434); RBC 4.74 M/mm3 (3.60-5.2); RDW 16.1 % (11.6-15.6); WHITE BLOOD COUNT 12.7 K/mm3 (4.0-10.0)
[2021-02-07 07:09] LABS: ALBUMIN 2.8 g/dl (3.4-5.0); CALCIUM 8.8 mg/dL (8.5-10.1)
[2021-02-07 07:13] LABS: CREATININE 0.6 mg/dL (0.55-1.3)
[2021-02-07 07:14] LABS: BILIRUBIN,TOTAL 0.2 mg/dL (0.2-1); TOT PROT 7.2 g/dl (6.4-8.2)
[2021-02-07] MEDS: ALBUTEROL SO4 0.083% IH SOL 2.5 MG/3 ML VIAL.NEB. NEB SCH ×3 (07:44→08:15)
[2021-02-07] MEDS ORDERED: ALBUTEROL SO4 0.083% IH SOL 2.5 MG/3 ML VIAL.NEB. NEB ONE ×2 (07:45→17:18)
[2021-02-07] MEDS ORDERED: ALBUTEROL SO4 0.083% IH SOL 2.5 MG/3 ML VIAL.NEB. NEB PRN (09:05)
[2021-02-07] MEDS ORDERED: predniSONE 20 MG TABLET (UD) PO SCH (10:00)
[2021-02-07] MEDS: methylPREDNISolone NA SUCC 40 MG/1 ML VIAL IVPUSH SCH (10:00)
[2021-02-07] MEDS ORDERED: methylPREDNISolone NA SUCC 40 MG/1 ML VIAL ONE (12:54)
[2021-02-07] MEDS ORDERED: methaDONE HCL 40 MG DISPERSABLE TABLET ONE (12:54)
[2021-02-07] MEDS ORDERED: BUPRENORPHINE/NALOXONE 8 MG/2 MG FILM PACKET ONE (13:07)
[2021-02-07] MEDS: BUPRENORPHINE/NALOXONE 8 MG/2 MG FILM PACKET SL SCH ×2 (13:08→22:34)
[2021-02-07] MEDS: FLUoxetine HCL 20 MG CAPSULE PO SCH (13:23)
[2021-02-07] MEDS ORDERED: MONTELUKAST NA 10 MG TABLET PO SCH (22:00)
[2021-02-07] MEDS ORDERED: MONTELUKAST NA 5 MG TAB.CHEW PO SCH (22:00)
[2021-02-07] MEDS: QUEtiapine FUMARATE 100 MG TABLET (FP) PO SCH (22:34)
[2021-02-07 23:29] VITALS: BMI 30.9
[2021-02-08] MEDS: BUPRENORPHINE/NALOXONE 8 MG/2 MG FILM PACKET SL SCH ×2 (10:15→21:46)
[2021-02-08] MEDS: FLUoxetine HCL 20 MG CAPSULE PO SCH (10:15)
[2021-02-08] MEDS: methylPREDNISolone NA SUCC 40 MG/1 ML VIAL IVPUSH SCH (10:15)
[2021-02-08] MEDS: ALBUTEROL SO4 2.5/IPRATROPIUM 0.5 INH SOL 3 ML VIAL.NEB. NEB SCH ×2 (14:10→20:09)
[2021-02-08] MEDS: ENOXAPARIN NA (PORCINE) 40 MG/0.4 ML DISP.SYRIN SQ SCH (18:26)
[2021-02-08] MEDS: QUEtiapine FUMARATE 100 MG TABLET (FP) PO SCH (21:46)
[2021-02-08] MEDS: MONTELUKAST NA 10 MG TABLET PO SCH (21:46)
[2021-02-09 07:12] LABS: BASO % 0.4 % (0-2.0); EOS % 0.1 % (0-4.5); HEMATOCRIT 32.9 % (32.4-45.2); HEMOGLOBIN 10.5 GM/dL (10.7-15.3); LYMPH % 26.9 % (8-40); MCH 23.9 pg (25.7-33.7); MCHC 31.9 g/dl (32.0-36.0); MEAN CELL VOLUME 74.8 fl (80-96); MEAN PLT VOLUME 7.5 fl (7.5-11.1); MONO % 6.2 % (3.8-10.2); NEUT % 66.4 % (42.8-82.8); PLATELET COUNT 468 10^3/uL (134-434); RDW 16.5 % (11.6-15.6); WHITE BLOOD COUNT 11.4 K/mm3 (4.0-10.0)
[2021-02-09 07:34] LABS: BLOOD UREA NITROGEN 15.5 mg/dL (7-18); MAGNESIUM 2.1 mg/dL (1.8-2.4)
[2021-02-09 07:36] LABS: PHOSPHOROUS 3.1 mg/dL (2.5-4.9)
[2021-02-09 07:37] LABS: CREATININE 0.7 mg/dL (0.55-1.3)
[2021-02-09] MEDS: ALBUTEROL SO4 2.5/IPRATROPIUM 0.5 INH SOL 3 ML VIAL.NEB. NEB SCH ×3 (08:20→21:01)
[2021-02-09] MEDS: methylPREDNISolone NA SUCC 40 MG/1 ML VIAL IVPUSH SCH (09:34)
[2021-02-09] MEDS: ENOXAPARIN NA (PORCINE) 40 MG/0.4 ML DISP.SYRIN SQ SCH (09:34)
[2021-02-09] MEDS: FLUoxetine HCL 20 MG CAPSULE PO SCH (09:34)
[2021-02-09] MEDS: BUPRENORPHINE/NALOXONE 8 MG/2 MG FILM PACKET SL SCH ×2 (09:35→21:49)
[2021-02-09 10:50] LABS: RETICULOCYTES 1.08 % (0.5-1.5)
[2021-02-09] MEDS: QUEtiapine FUMARATE 100 MG TABLET (FP) PO SCH (21:49)
[2021-02-09] MEDS: MONTELUKAST NA 10 MG TABLET PO SCH (21:49)
[2021-02-09] MEDS: BUDESONIDE/FORMETEROL FUMARATE 160/4.5 mcg INHALER IH SCH (21:52)
[2021-02-09] MEDS ORDERED: methylPREDNISolone NA SUCC 40 MG/1 ML VIAL IVPUSH SCH (22:00)
[2021-02-10] MEDS: methylPREDNISolone NA SUCC 40 MG/1 ML VIAL IVPUSH SCH ×3 (02:57→17:29)
[2021-02-10 07:13] LABS: CALCIUM 8.9 mg/dL (8.5-10.1)
[2021-02-10 07:14] LABS: BLOOD UREA NITROGEN 13.4 mg/dL (7-18); MAGNESIUM 1.8 mg/dL (1.8-2.4)
[2021-02-10 07:17] LABS: CREATININE 0.7 mg/dL (0.55-1.3); PHOSPHOROUS 2.7 mg/dL (2.5-4.9)
[2021-02-10 07:18] LABS: BILIRUBIN,TOTAL 0.1 mg/dL (0.2-1); TOT PROT 7.5 g/dl (6.4-8.2)
[2021-02-10] MEDS: ALBUTEROL SO4 2.5/IPRATROPIUM 0.5 INH SOL 3 ML VIAL.NEB. NEB SCH ×4 (08:32→20:35)
[2021-02-10] MEDS: ENOXAPARIN NA (PORCINE) 40 MG/0.4 ML DISP.SYRIN SQ SCH (10:39)
[2021-02-10] MEDS: FLUoxetine HCL 20 MG CAPSULE PO SCH (10:40)
[2021-02-10] MEDS: BUPRENORPHINE/NALOXONE 8 MG/2 MG FILM PACKET SL SCH ×2 (10:40→21:23)
[2021-02-10] MEDS: BUDESONIDE/FORMETEROL FUMARATE 160/4.5 mcg INHALER IH SCH ×2 (10:48→21:22)
[2021-02-10] MEDS: guaiFENesin 600 MG TABLET.ER (FP) PO SCH ×2 (15:43→21:23)
[2021-02-10] MEDS: FERROUS SO4 325 MG TABLET (FP) PO SCH (16:53)
[2021-02-10] MEDS: QUEtiapine FUMARATE 100 MG TABLET (FP) PO SCH (21:23)
[2021-02-10] MEDS: MONTELUKAST NA 10 MG TABLET PO SCH (21:23)
[2021-02-11] MEDS: methylPREDNISolone NA SUCC 40 MG/1 ML VIAL IVPUSH SCH ×3 (01:51→18:29)
[2021-02-11 08:17] LABS: HEMATOCRIT 35.6 % (32.4-45.2); HEMOGLOBIN 11.3 GM/dL (10.7-15.3); MCH 23.3 pg (25.7-33.7); MCHC 31.7 g/dl (32.0-36.0); MEAN CELL VOLUME 73.6 fl (80-96); MEAN PLT VOLUME 7.4 fl (7.5-11.1); PLATELET COUNT 492 10^3/uL (134-434); RBC 4.83 M/mm3 (3.60-5.2); RDW 16.4 % (11.6-15.6); WHITE BLOOD COUNT 13.3 K/mm3 (4.0-10.0)
[2021-02-11 08:41] LABS: ALBUMIN 3.3 g/dl (3.4-5.0); BLOOD UREA NITROGEN 10.9 mg/dL (7-18); CALCIUM 9.3 mg/dL (8.5-10.1)
[2021-02-11] MEDS: ALBUTEROL SO4 2.5/IPRATROPIUM 0.5 INH SOL 3 ML VIAL.NEB. NEB SCH ×4 (08:41→20:08)
[2021-02-11 08:45] LABS: BILIRUBIN,TOTAL 0.3 mg/dL (0.2-1); CREATININE 0.7 mg/dL (0.55-1.3)
[2021-02-11 08:47] LABS: TOT PROT 7.7 g/dl (6.4-8.2)
[2021-02-11] MEDS: guaiFENesin 600 MG TABLET.ER (FP) PO SCH ×2 (09:56→21:33)
[2021-02-11] MEDS: FLUoxetine HCL 20 MG CAPSULE PO SCH (09:56)
[2021-02-11] MEDS: BUPRENORPHINE/NALOXONE 8 MG/2 MG FILM PACKET SL SCH ×2 (09:56→21:33)
[2021-02-11] MEDS: FERROUS SO4 325 MG TABLET (FP) PO SCH (09:56)
[2021-02-11] MEDS: ENOXAPARIN NA (PORCINE) 40 MG/0.4 ML DISP.SYRIN SQ SCH (10:01)
[2021-02-11] MEDS: BUDESONIDE/FORMETEROL FUMARATE 160/4.5 mcg INHALER IH SCH ×2 (10:02→21:33)
[2021-02-11] MEDS ORDERED: PT OWN MED DRAWER 7, Y5N ONE (10:30)
[2021-02-11] MEDS: QUEtiapine FUMARATE 100 MG TABLET (FP) PO SCH (21:33)
[2021-02-11] MEDS: MONTELUKAST NA 10 MG TABLET PO SCH (21:33)
[2021-02-12] MEDS: methylPREDNISolone NA SUCC 40 MG/1 ML VIAL IVPUSH SCH ×2 (01:16→10:34)
[2021-02-12 06:31] VITALS: TEMP 98.5
[2021-02-12 07:14] LABS: HEMATOCRIT 35.4 % (32.4-45.2); HEMOGLOBIN 11.3 GM/dL (10.7-15.3); MCH 23.8 pg (25.7-33.7); MEAN CELL VOLUME 74.5 fl (80-96); MEAN PLT VOLUME 7.6 fl (7.5-11.1); PLATELET COUNT 488 10^3/uL (134-434); RBC 4.75 M/mm3 (3.60-5.2); RDW 16.2 % (11.6-15.6); WHITE BLOOD COUNT 14.5 K/mm3 (4.0-10.0)
[2021-02-12 07:21] LABS: CALCIUM 9.3 mg/dL (8.5-10.1)
[2021-02-12 07:23] LABS: BLOOD UREA NITROGEN 11.1 mg/dL (7-18)
[2021-02-12] MEDS: ALBUTEROL SO4 2.5/IPRATROPIUM 0.5 INH SOL 3 ML VIAL.NEB. NEB SCH ×2 (07:25→11:26)
[2021-02-12 07:26] LABS: CREATININE 0.8 mg/dL (0.55-1.3)
[2021-02-12 09:49] VITALS: BP 143/89; PULSE 82
[2021-02-12] MEDS: FERROUS SO4 325 MG TABLET (FP) PO SCH (10:38)
[2021-02-12] MEDS: guaiFENesin 600 MG TABLET.ER (FP) PO SCH (10:38)
[2021-02-12] MEDS: ENOXAPARIN NA (PORCINE) 40 MG/0.4 ML DISP.SYRIN SQ SCH (10:38)
[2021-02-12] MEDS: FLUoxetine HCL 20 MG CAPSULE PO SCH (10:38)
[2021-02-12] MEDS: BUPRENORPHINE/NALOXONE 8 MG/2 MG FILM PACKET SL SCH (10:39)
[2021-02-12] MEDS: BUDESONIDE/FORMETEROL FUMARATE 160/4.5 mcg INHALER IH SCH (10:40)
== END 2021-02-12 14:08 | disposition home or self-care (01) | DRG 133 ==
LOC: JER 04:52 → JERBED 06:28 → J4W 22:09
PROVIDERS: ADMIT Internal Medicine; ATTEND Internal Medicine
DX: J96.01 Acute respiratory failure with hypoxia (principal); J45.901 Unspecified asthma with (acute) exacerbation; R05.9 Cough, unspecified; F12.90 Cannabis use, unspecified, uncomplicated; I10 Essential (primary) hypertension; R42 Dizziness and giddiness; F41.9 Anxiety disorder, unspecified; D53.9 Nutritional anemia, unspecified; D50.9 Iron deficiency anemia, unspecified
CPT/HCPCS: 36415; 71045-TC-FY; 80048; 80053; 83540; 83550; 83735; 84100; 85025; 85027; 85045; 87804; 87807; 93005; 93010; 94150; 94640; 94761; 99285-25; C9803; U0003; U0005

== ENCOUNTER 2021-06-10 18:17 | Inpatient (IN) | payer OTHER ==
[2021-06-10] MEDS ORDERED: EPINEPHrine 1:1,000 0.3 MG/0.3 ML SYR IM ONE (18:22)
[2021-06-10] MEDS ORDERED: RACEPINEPHRINE IH SOL 2.25% 11.25 MG/0.5 ML VIAL IH ONE (18:22)
[2021-06-10 19:15] LABS: BASO % 0.2 % (0-2.0); EOS % 0.1 % (0-4.5); HEMATOCRIT 34.7 % (32.4-45.2); HEMOGLOBIN 11.1 GM/dL (10.7-15.3); LYMPH % 11.9 % (8-40); MCH 23.6 pg (25.7-33.7); MCHC 31.9 g/dl (32.0-36.0); MEAN CELL VOLUME 73.9 fl (80-96); MEAN PLT VOLUME 7.3 fl (7.5-11.1); MONO % 5.1 % (3.8-10.2); NEUT % 82.7 % (42.8-82.8); PLATELET COUNT 521 10^3/uL (134-434); RDW 16.7 % (11.6-15.6); WHITE BLOOD COUNT 11.2 K/mm3 (4.0-10.0)
[2021-06-10] MEDS ORDERED: RACEPINEPHRINE IH SOL 2.25% 11.25 MG/0.5 ML VIAL NEB ONE (19:19)
[2021-06-10 19:34] LABS: CALCIUM 9.3 mg/dL (8.5-10.1)
[2021-06-10 19:36] LABS: ALBUMIN 3.4 g/dl (3.4-5.0); BLOOD UREA NITROGEN 6.5 mg/dL (7-18)
[2021-06-10 19:38] LABS: CREATININE 0.6 mg/dL (0.55-1.3)
[2021-06-10 19:40] LABS: TOT PROT 7.6 g/dl (6.4-8.2)
[2021-06-10 19:41] LABS: BILIRUBIN,TOTAL 0.2 mg/dL (0.2-1)
[2021-06-10 23:59] VITALS: BMI 29.3
[2021-06-11] MEDS ORDERED: AZITHROMYCIN IVPB 500 MG/250 ML BAG IVPB ONE (00:06)
[2021-06-11] MEDS ORDERED: ALBUTEROL SO4 2.5/IPRATROPIUM 0.5 INH SOL 3 ML VIAL.NEB. NEB PRN (00:06)
[2021-06-11] MEDS: methylPREDNISolone NA SUCC 40 MG/1 ML VIAL IVPUSH SCH ×3 (01:32→17:35)
[2021-06-11] MEDS: QUEtiapine FUMARATE 100 MG TABLET (FP) PO SCH ×2 (01:32→21:22)
[2021-06-11 03:21] LABS: URINE APPEARANCE CLEAR; URINE BILIRUBIN NEGATIVE (NEGATIVE); URINE COLOR YELLOW; URINE GLUCOSE (UA) NEGATIVE (NEGATIVE); URINE KETONE TRACE (NEGATIVE); URINE LEUK ESTERASE NEGATIVE (NEGATIVE); URINE NITRITE NEGATIVE (NEGATIVE); URINE PROTEIN TRACE (NEGATIVE)
[2021-06-11 09:10] LABS: BASO % 0.2 % (0-2.0); HEMOGLOBIN 11.3 GM/dL (10.7-15.3); MCH 24.1 pg (25.7-33.7); MCHC 32.3 g/dl (32.0-36.0); MEAN CELL VOLUME 74.4 fl (80-96); MEAN PLT VOLUME 7.5 fl (7.5-11.1); MONO % 1.8 % (3.8-10.2); PLATELET COUNT 486 10^3/uL (134-434); WHITE BLOOD COUNT 7.3 K/mm3 (4.0-10.0)
[2021-06-11 09:35] LABS: BLOOD UREA NITROGEN 9.3 mg/dL (7-18)
[2021-06-11 09:36] LABS: CREATININE 0.7 mg/dL (0.55-1.3)
[2021-06-11] MEDS: BUPRENORPHINE/NALOXONE 8 MG/2 MG FILM PACKET SL SCH ×2 (09:36→21:22)
[2021-06-11 09:37] LABS: MAGNESIUM 2.1 mg/dL (1.8-2.4)
[2021-06-11] MEDS: ENOXAPARIN NA (PORCINE) 40 MG/0.4 ML DISP.SYRIN SQ SCH (09:37)
[2021-06-11 09:39] LABS: TOT PROT 7.4 g/dl (6.4-8.2)
[2021-06-11 09:40] LABS: BILIRUBIN,TOTAL 0.2 mg/dL (0.2-1)
[2021-06-11 09:42] LABS: PHOSPHOROUS 3.2 mg/dL (2.5-4.9)
[2021-06-11] MEDS ORDERED: BUPRENORPHINE/NALOXONE 8 MG/2 MG FILM PACKET SL SCH (10:00)
[2021-06-11] MEDS ORDERED: THEOPHYLLINE ANHYDROUS 100 MG CAP.ER.24H PO SCH ×2 (10:00→22:00)
[2021-06-11] MEDS ORDERED: PATIENT'S OWN MEDICATION (NON-FORMULARY) (Fluticasone/Salmeterol [Advair Hfa 115-21 Mcg In PO SCH (10:00)
[2021-06-11] MEDS ORDERED: AZITHROMYCIN IVPB 250 MG/125 ML BAG IVPB SCH (10:00)
[2021-06-11] MEDS: MINOXIDIL 2.5 MG TABLET PO SCH ×2 (11:35→21:22)
[2021-06-11] MEDS: AZITHROMYCIN IVPB SCH (12:36)
[2021-06-11] MEDS: WATER IVPB SCH (12:36)
[2021-06-11] MEDS: DEXTROSE 5% IVPB SCH (12:36)
[2021-06-11] MEDS ORDERED: ALBUTEROL SO4 0.083% IH SOL 2.5 MG/3 ML VIAL.NEB. NEB PRN (13:42)
[2021-06-11] MEDS: ALBUTEROL SO4 2.5/IPRATROPIUM 0.5 INH SOL 3 ML VIAL.NEB. NEB SCH ×2 (14:35→20:10)
[2021-06-11] MEDS: MONTELUKAST NA 10 MG TABLET PO SCH (21:22)
[2021-06-11] MEDS: BUDESONIDE/FORMETEROL FUMARATE 80/4.5 mcg INHALER IH SCH (21:26)
[2021-06-12] MEDS: methylPREDNISolone NA SUCC 40 MG/1 ML VIAL IVPUSH SCH ×3 (01:12→18:10)
[2021-06-12] MEDS: ALBUTEROL SO4 2.5/IPRATROPIUM 0.5 INH SOL 3 ML VIAL.NEB. NEB SCH ×3 (07:27→20:11)
[2021-06-12] MEDS: ENOXAPARIN NA (PORCINE) 40 MG/0.4 ML DISP.SYRIN SQ SCH (09:01)
[2021-06-12] MEDS: BUPRENORPHINE/NALOXONE 8 MG/2 MG FILM PACKET SL SCH ×2 (09:03→21:12)
[2021-06-12] MEDS: MINOXIDIL 2.5 MG TABLET PO SCH ×2 (09:05→21:12)
[2021-06-12] MEDS: BUDESONIDE/FORMETEROL FUMARATE 80/4.5 mcg INHALER IH SCH ×2 (09:35→21:41)
[2021-06-12] MEDS: DEXTROSE 5% IVPB SCH (11:04)
[2021-06-12] MEDS: AZITHROMYCIN IVPB SCH (11:04)
[2021-06-12] MEDS: WATER IVPB SCH (11:04)
[2021-06-12 12:46] LABS: BASO % 0.1 % (0-2.0); HEMATOCRIT 33.5 % (32.4-45.2); HEMOGLOBIN 10.8 GM/dL (10.7-15.3); LYMPH % 5.7 % (8-40); MCH 24.5 pg (25.7-33.7); MCHC 32.1 g/dl (32.0-36.0); MEAN CELL VOLUME 76.4 fl (80-96); MEAN PLT VOLUME 7.7 fl (7.5-11.1); NEUT % 90.2 % (42.8-82.8); PLATELET COUNT 511 10^3/uL (134-434); RBC 4.39 M/mm3 (3.60-5.2); RDW 16.8 % (11.6-15.6); WHITE BLOOD COUNT 14.2 K/mm3 (4.0-10.0)
[2021-06-12 13:15] LABS: CALCIUM 9.3 mg/dL (8.5-10.1)
[2021-06-12 13:16] LABS: BLOOD UREA NITROGEN 12.3 mg/dL (7-18)
[2021-06-12 13:19] LABS: CREATININE 0.7 mg/dL (0.55-1.3)
[2021-06-12] MEDS: THEOPHYLLINE ANHYDROUS 200 MG CAP.ER.24H PO SCH (17:14)
[2021-06-12] MEDS: QUEtiapine FUMARATE 100 MG TABLET (FP) PO SCH (21:12)
[2021-06-12] MEDS: MONTELUKAST NA 10 MG TABLET PO SCH (21:12)
[2021-06-13] MEDS: methylPREDNISolone NA SUCC 40 MG/1 ML VIAL IVPUSH SCH ×3 (02:06→17:40)
[2021-06-13 09:38] LABS: BASO % 0.1 % (0-2.0); HEMATOCRIT 33.4 % (32.4-45.2); HEMOGLOBIN 10.7 GM/dL (10.7-15.3); LYMPH % 8.6 % (8-40); MCH 24.4 pg (25.7-33.7); MCHC 32.1 g/dl (32.0-36.0); MEAN PLT VOLUME 7.6 fl (7.5-11.1); MONO % 2.5 % (3.8-10.2); NEUT % 88.8 % (42.8-82.8); PLATELET COUNT 536 10^3/uL (134-434); RDW 16.8 % (11.6-15.6); WHITE BLOOD COUNT 11.3 K/mm3 (4.0-10.0)
[2021-06-13 09:56] LABS: BLOOD UREA NITROGEN 11.9 mg/dL (7-18); CALCIUM 9.2 mg/dL (8.5-10.1)
[2021-06-13 10:00] LABS: CREATININE 0.7 mg/dL (0.55-1.3)
[2021-06-13] MEDS: ENOXAPARIN NA (PORCINE) 40 MG/0.4 ML DISP.SYRIN SQ SCH (10:05)
[2021-06-13] MEDS: THEOPHYLLINE ANHYDROUS 200 MG CAP.ER.24H PO SCH (10:06)
[2021-06-13] MEDS: BUDESONIDE/FORMETEROL FUMARATE 80/4.5 mcg INHALER IH SCH ×2 (10:06→21:18)
[2021-06-13] MEDS: BUPRENORPHINE/NALOXONE 8 MG/2 MG FILM PACKET SL SCH ×2 (10:06→21:17)
[2021-06-13] MEDS: MINOXIDIL 2.5 MG TABLET PO SCH ×2 (10:07→21:17)
[2021-06-13] MEDS: ALBUTEROL SO4 2.5/IPRATROPIUM 0.5 INH SOL 3 ML VIAL.NEB. NEB SCH ×3 (10:14→20:10)
[2021-06-13] MEDS: DEXTROSE 5% IVPB SCH (11:13)
[2021-06-13] MEDS: WATER IVPB SCH (11:13)
[2021-06-13] MEDS: AZITHROMYCIN IVPB SCH (11:13)
[2021-06-13] MEDS: QUEtiapine FUMARATE 100 MG TABLET (FP) PO SCH (21:17)
[2021-06-13] MEDS: MONTELUKAST NA 10 MG TABLET PO SCH (21:17)
[2021-06-14] MEDS: methylPREDNISolone NA SUCC 40 MG/1 ML VIAL IVPUSH SCH ×3 (02:24→17:17)
[2021-06-14 06:46] LABS: BASO % 0.1 % (0-2.0); HEMATOCRIT 35.2 % (32.4-45.2); HEMOGLOBIN 11.3 GM/dL (10.7-15.3); MCH 24.2 pg (25.7-33.7); MCHC 32.1 g/dl (32.0-36.0); MEAN CELL VOLUME 75.5 fl (80-96); MEAN PLT VOLUME 7.4 fl (7.5-11.1); NEUT % 87.9 % (42.8-82.8); PLATELET COUNT 514 10^3/uL (134-434); RBC 4.66 M/mm3 (3.60-5.2); RDW 16.7 % (11.6-15.6); WHITE BLOOD COUNT 10.7 K/mm3 (4.0-10.0)
[2021-06-14 07:12] LABS: BLOOD UREA NITROGEN 11.3 mg/dL (7-18); CALCIUM 9.7 mg/dL (8.5-10.1)
[2021-06-14 07:16] LABS: CREATININE 0.7 mg/dL (0.55-1.3)
[2021-06-14] MEDS: ALBUTEROL SO4 2.5/IPRATROPIUM 0.5 INH SOL 3 ML VIAL.NEB. NEB SCH ×3 (08:20→20:15)
[2021-06-14] MEDS: MINOXIDIL 2.5 MG TABLET PO SCH ×2 (09:07→21:18)
[2021-06-14] MEDS: ENOXAPARIN NA (PORCINE) 40 MG/0.4 ML DISP.SYRIN SQ SCH (09:07)
[2021-06-14] MEDS: BUPRENORPHINE/NALOXONE 8 MG/2 MG FILM PACKET SL SCH ×2 (09:08→21:18)
[2021-06-14] MEDS: THEOPHYLLINE ANHYDROUS 200 MG CAP.ER.24H PO SCH (09:08)
[2021-06-14] MEDS: BUDESONIDE/FORMETEROL FUMARATE 80/4.5 mcg INHALER IH SCH (09:08)
[2021-06-14] MEDS: WATER IVPB SCH (09:09)
[2021-06-14] MEDS: DEXTROSE 5% IVPB SCH (09:09)
[2021-06-14] MEDS: AZITHROMYCIN IVPB SCH (09:09)
[2021-06-14] MEDS: guaiFENesin/D-METHORPHAN HB 10 ML UNIT-DOSE CUPS PO PRN ×2 (17:18→21:18)
[2021-06-14] MEDS: QUEtiapine FUMARATE 100 MG TABLET (FP) PO SCH (21:18)
[2021-06-14] MEDS: MONTELUKAST NA 10 MG TABLET PO SCH (21:18)
[2021-06-14] MEDS: BUDESONIDE/FORMETEROL FUMARATE 160/4.5 mcg INHALER IH SCH (21:20)
[2021-06-15] MEDS: methylPREDNISolone NA SUCC 40 MG/1 ML VIAL IVPUSH SCH ×2 (02:03→09:26)
[2021-06-15] MEDS: ALBUTEROL SO4 2.5/IPRATROPIUM 0.5 INH SOL 3 ML VIAL.NEB. NEB SCH ×3 (07:24→21:20)
[2021-06-15] MEDS: ENOXAPARIN NA (PORCINE) 40 MG/0.4 ML DISP.SYRIN SQ SCH (09:26)
[2021-06-15] MEDS: BUPRENORPHINE/NALOXONE 8 MG/2 MG FILM PACKET SL SCH ×2 (09:26→21:29)
[2021-06-15] MEDS: MINOXIDIL 2.5 MG TABLET PO SCH ×2 (09:27→21:28)
[2021-06-15] MEDS: THEOPHYLLINE ANHYDROUS 200 MG CAP.ER.24H PO SCH (09:27)
[2021-06-15 10:11] LABS: HEMOGLOBIN 11.8 GM/dL (10.7-15.3); MCH 23.6 pg (25.7-33.7); MEAN PLT VOLUME 7.5 fl (7.5-11.1); PLATELET COUNT 582 10^3/uL (134-434); RDW 16.4 % (11.6-15.6); WHITE BLOOD COUNT 11.6 K/mm3 (4.0-10.0)
[2021-06-15] MEDS: BUDESONIDE/FORMETEROL FUMARATE 160/4.5 mcg INHALER IH SCH ×2 (10:30→21:29)
[2021-06-15 10:42] LABS: BLOOD UREA NITROGEN 14.1 mg/dL (7-18); CALCIUM 9.5 mg/dL (8.5-10.1)
[2021-06-15 10:46] LABS: CREATININE 0.8 mg/dL (0.55-1.3)
[2021-06-15 12:35] LABS: ANISOCYTOSIS 0; MACROCYTOSIS 0; PLATELET ESTIMATE INCREASED
[2021-06-15] MEDS: QUEtiapine FUMARATE 100 MG TABLET (FP) PO SCH (21:28)
[2021-06-15] MEDS: MONTELUKAST NA 10 MG TABLET PO SCH (21:28)
[2021-06-16 06:17] VITALS: BP 121/82; PULSE 86; TEMP 98.4
[2021-06-16] MEDS: ALBUTEROL SO4 2.5/IPRATROPIUM 0.5 INH SOL 3 ML VIAL.NEB. NEB SCH (07:46)
[2021-06-16] MEDS: BUPRENORPHINE/NALOXONE 8 MG/2 MG FILM PACKET SL SCH (09:52)
[2021-06-16] MEDS: ENOXAPARIN NA (PORCINE) 40 MG/0.4 ML DISP.SYRIN SQ SCH (09:53)
[2021-06-16] MEDS: MINOXIDIL 2.5 MG TABLET PO SCH (09:53)
[2021-06-16] MEDS: THEOPHYLLINE ANHYDROUS 200 MG CAP.ER.24H PO SCH (09:53)
[2021-06-16] MEDS ORDERED: predniSONE 20 MG TABLET (UD) PO SCH ×2 (10:00→10:31)
[2021-06-16] MEDS ORDERED: methylPREDNISolone NA SUCC 40 MG/1 ML VIAL IVPUSH SCH (10:00)
== END 2021-06-16 12:00 | disposition home or self-care (01) | DRG 141 ==
LOC: JER 18:17 → JERBED 20:20 → J4S 23:28 → OBSVTOIN 06-11 00:02 → J7W 06-16 09:18
PROVIDERS: ADMIT Internal Medicine; ATTEND Internal Medicine
DX: J45.41 Moderate persistent asthma with (acute) exacerbation (principal); M06.9 Rheumatoid arthritis, unspecified; G47.00 Insomnia, unspecified; L30.9 Dermatitis, unspecified; J96.01 Acute respiratory failure with hypoxia; L68.0 Hirsutism; F12.10 Cannabis abuse, uncomplicated; J45.901 Unspecified asthma with (acute) exacerbation; F41.8 Other specified anxiety disorders; Z88.0 Allergy status to penicillin
CPT/HCPCS: 36415; 71045-TC-FY; 80048; 80053; 80061; 80198; 81003; 83036; 83735; 84100; 85025; 87804; 87807; 93005; 93010; 94150; 94640; 99285-25; C9803-CS; G0378; T1023; U0003; U0005

== ENCOUNTER 2021-06-24 11:56 | Inpatient (IN) | payer OTHER ==
[2021-06-24] MEDS ORDERED: methylPREDNISolone NA SUCC 125 MG/2 ML VIAL IVPB ONE (12:41)
[2021-06-24] MEDS ORDERED: ALBUTEROL SO4 2.5/IPRATROPIUM 0.5 INH SOL 3 ML VIAL.NEB. NEB SCH (12:45)
[2021-06-24] MEDS ORDERED: ACETAMINOPHEN 1000 MG/100 ML BAG IVPB ONE (12:48)
[2021-06-24] MEDS ORDERED: ACETAMINOPHEN INJECTION 100 ML IVPB ONE (12:48)
[2021-06-24] MEDS ORDERED: ALBUTEROL SO4 2.5/IPRATROPIUM 0.5 INH SOL 3 ML VIAL.NEB. NEB ONE (12:48)
[2021-06-24] MEDS ORDERED: AZITHROMYCIN 250 MG TABLET PO ONE (12:48)
[2021-06-24] MEDS ORDERED: methylPREDNISolone NA SUCC 125 MG/2 ML VIAL ONE (12:48)
[2021-06-24 13:13] LABS: BASO % 0.7 % (0-2.0); EOS % 0.1 % (0-4.5); HEMATOCRIT 35.8 % (32.4-45.2); HEMOGLOBIN 11.8 GM/dL (10.7-15.3); LYMPH % 10.8 % (8-40); MCH 24.5 pg (25.7-33.7); MCHC 32.9 g/dl (32.0-36.0); MEAN CELL VOLUME 74.4 fl (80-96); MEAN PLT VOLUME 7.5 fl (7.5-11.1); MONO % 15.7 % (3.8-10.2); NEUT % 72.7 % (42.8-82.8); PLATELET COUNT 238 10^3/uL (134-434); RBC 4.81 M/mm3 (3.60-5.2)
[2021-06-24 14:03] LABS: EPI CELLS 19 /uL (0-25.1); HYALINE CASTS 1 /uL (0-3.1); PH,URINE 6.5 (5.0-8.0); URINE APPEARANCE CLEAR; URINE BACTERIA 270 /uL (0-1359); URINE BILIRUBIN NEGATIVE (NEGATIVE); URINE COLOR YELLOW; URINE GLUCOSE (UA) NEGATIVE (NEGATIVE); URINE KETONE TRACE (NEGATIVE); URINE LEUK ESTERASE NEGATIVE (NEGATIVE); URINE NITRITE NEGATIVE (NEGATIVE); URINE PROTEIN 1+ (NEGATIVE); URINE RBC 42 /uL (0-23.9); URINE WBC 16 /uL (0-25.8)
[2021-06-24 14:23] LABS: CALCIUM 8.4 mg/dL (8.5-10.1)
[2021-06-24 14:24] LABS: BLOOD UREA NITROGEN 5.9 mg/dL (7-18); MAGNESIUM 1.8 mg/dL (1.8-2.4)
[2021-06-24 14:27] LABS: CREATININE 0.7 mg/dL (0.55-1.3); PHOSPHOROUS 2.7 mg/dL (2.5-4.9)
[2021-06-24 14:28] LABS: BILIRUBIN,TOTAL 0.3 mg/dL (0.2-1); TOT PROT 6.8 g/dl (6.4-8.2)
[2021-06-24] MEDS: ALBUTEROL SO4 2.5/IPRATROPIUM 0.5 INH SOL 3 ML VIAL.NEB. NEB SCH (15:44)
[2021-06-24] MEDS ORDERED: ALBUTEROL SO4 HFA INHALER IH ONE ×2 (15:46→15:49)
[2021-06-24] MEDS ORDERED: ACETAMINOPHEN 325 MG TABLET (FP) PO PRN (18:15)
[2021-06-24] MEDS: BUPRENORPHINE/NALOXONE 8 MG/2 MG FILM PACKET SL SCH (23:02)
[2021-06-24] MEDS: MONTELUKAST NA 10 MG TABLET PO SCH (23:02)
[2021-06-24] MEDS: QUEtiapine FUMARATE 100 MG TABLET (FP) PO SCH (23:02)
[2021-06-24 23:56] VITALS: BMI 30.1
[2021-06-25] MEDS: BUDESONIDE/FORMETEROL FUMARATE 160/4.5 mcg INHALER IH SCH ×3 (00:21→21:42)
[2021-06-25] MEDS: MINOXIDIL 2.5 MG TABLET PO SCH ×3 (00:21→21:46)
[2021-06-25] MEDS: hydrOXYzine PAMOATE 25 MG CAPSULE (FP) PO SCH ×3 (00:21→21:46)
[2021-06-25] MEDS: ALBUTEROL SO4 2.5/IPRATROPIUM 0.5 INH SOL 3 ML VIAL.NEB. NEB SCH ×4 (08:00→21:18)
[2021-06-25 09:50] LABS: BASO % 0.5 % (0-2.0); HEMOGLOBIN 11.8 GM/dL (10.7-15.3); LYMPH % 24.1 % (8-40); MCH 24.2 pg (25.7-33.7); MCHC 32.7 g/dl (32.0-36.0); MEAN PLT VOLUME 7.4 fl (7.5-11.1); MONO % 11.6 % (3.8-10.2); NEUT % 63.8 % (42.8-82.8); PLATELET COUNT 246 10^3/uL (134-434); RBC 4.87 M/mm3 (3.60-5.2); RDW 17.4 % (11.6-15.6); WHITE BLOOD COUNT 3.9 K/mm3 (4.0-10.0)
[2021-06-25] MEDS ORDERED: methylPREDNISolone NA SUCC 40 MG/1 ML VIAL IVPUSH SCH (10:00)
[2021-06-25 10:16] LABS: BLOOD UREA NITROGEN 10.8 mg/dL (7-18)
[2021-06-25 10:20] LABS: CREATININE 0.8 mg/dL (0.55-1.3)
[2021-06-25] MEDS: FLUoxetine HCL 20 MG CAPSULE PO SCH (10:34)
[2021-06-25] MEDS: ENOXAPARIN NA (PORCINE) 40 MG/0.4 ML DISP.SYRIN SQ SCH (10:34)
[2021-06-25] MEDS: BUPRENORPHINE/NALOXONE 8 MG/2 MG FILM PACKET SL SCH ×2 (10:34→21:46)
[2021-06-25] MEDS ORDERED: ALBUTEROL SO4 0.083% IH SOL 2.5 MG/3 ML VIAL.NEB. NEB PRN (12:13)
[2021-06-25 12:38] LABS: EPI CELLS >36 /uL (0-25.1); HYALINE CASTS 8 /uL (0-3.1); PH,URINE 5.5 (5.0-8.0); URINE APPEARANCE CLOUDY; URINE BACTERIA 914 /uL (0-1359); URINE BILIRUBIN NEGATIVE (NEGATIVE); URINE COLOR DK YELLOW; URINE GLUCOSE (UA) NEGATIVE (NEGATIVE); URINE KETONE TRACE (NEGATIVE); URINE LEUK ESTERASE NEGATIVE (NEGATIVE); URINE NITRITE NEGATIVE (NEGATIVE); URINE PROTEIN 1+ (NEGATIVE); URINE RBC 10 /uL (0-23.9); URINE UROBILINOGEN 0.2 mg/dL (0.2-1.0); URINE WBC 54 /uL (0-25.8)
[2021-06-25] MEDS: methylPREDNISolone NA SUCC 40 MG/1 ML VIAL IVPUSH SCH (17:49)
[2021-06-25] MEDS: QUEtiapine FUMARATE 100 MG TABLET (FP) PO SCH (21:46)
[2021-06-25] MEDS: MONTELUKAST NA 10 MG TABLET PO SCH (21:46)
[2021-06-26] MEDS: methylPREDNISolone NA SUCC 40 MG/1 ML VIAL IVPUSH SCH ×3 (02:17→17:53)
[2021-06-26 08:49] LABS: BASO % 0.1 % (0-2.0); HEMATOCRIT 37.3 % (32.4-45.2); HEMOGLOBIN 11.8 GM/dL (10.7-15.3); LYMPH % 13.2 % (8-40); MCH 23.6 pg (25.7-33.7); MCHC 31.6 g/dl (32.0-36.0); MEAN CELL VOLUME 74.9 fl (80-96); MEAN PLT VOLUME 7.8 fl (7.5-11.1); MONO % 4.8 % (3.8-10.2); NEUT % 81.9 % (42.8-82.8); PLATELET COUNT 295 10^3/uL (134-434); RBC 4.98 M/mm3 (3.60-5.2); RDW 17.5 % (11.6-15.6)
[2021-06-26] MEDS: ALBUTEROL SO4 2.5/IPRATROPIUM 0.5 INH SOL 3 ML VIAL.NEB. NEB SCH ×4 (08:51→19:46)
[2021-06-26 09:16] LABS: CALCIUM 9.1 mg/dL (8.5-10.1)
[2021-06-26 09:20] LABS: CREATININE 0.7 mg/dL (0.55-1.3)
[2021-06-26] MEDS: BUPRENORPHINE/NALOXONE 8 MG/2 MG FILM PACKET SL SCH ×2 (09:33→21:28)
[2021-06-26] MEDS: FLUoxetine HCL 20 MG CAPSULE PO SCH (09:34)
[2021-06-26] MEDS: ENOXAPARIN NA (PORCINE) 40 MG/0.4 ML DISP.SYRIN SQ SCH (09:34)
[2021-06-26] MEDS: MINOXIDIL 2.5 MG TABLET PO SCH ×2 (09:34→21:28)
[2021-06-26] MEDS: hydrOXYzine PAMOATE 25 MG CAPSULE (FP) PO SCH ×2 (09:35→21:28)
[2021-06-26] MEDS: BUDESONIDE/FORMETEROL FUMARATE 160/4.5 mcg INHALER IH SCH ×2 (09:35→23:53)
[2021-06-26 09:55] LABS: MAGNESIUM 1.9 mg/dL (1.8-2.4)
[2021-06-26 12:06] LABS: SARS-CoV-2 NAA Not Detected (Not Detected)
[2021-06-26] MEDS: MONTELUKAST NA 10 MG TABLET PO SCH (21:28)
[2021-06-26] MEDS: QUEtiapine FUMARATE 100 MG TABLET (FP) PO SCH (21:28)
[2021-06-27] MEDS: methylPREDNISolone NA SUCC 40 MG/1 ML VIAL IVPUSH SCH ×3 (01:05→18:11)
[2021-06-27] MEDS: ALBUTEROL SO4 2.5/IPRATROPIUM 0.5 INH SOL 3 ML VIAL.NEB. NEB SCH ×4 (07:15→20:02)
[2021-06-27 09:23] LABS: BASO % 0.1 % (0-2.0); HEMATOCRIT 34.7 % (32.4-45.2); HEMOGLOBIN 11.3 GM/dL (10.7-15.3); LYMPH % 12.4 % (8-40); MCH 24.5 pg (25.7-33.7); MCHC 32.5 g/dl (32.0-36.0); MEAN CELL VOLUME 75.3 fl (80-96); MEAN PLT VOLUME 7.6 fl (7.5-11.1); MONO % 4.8 % (3.8-10.2); NEUT % 82.7 % (42.8-82.8); PLATELET COUNT 289 10^3/uL (134-434); RDW 17.1 % (11.6-15.6); WHITE BLOOD COUNT 6.1 K/mm3 (4.0-10.0)
[2021-06-27 09:38] LABS: CALCIUM 9.1 mg/dL (8.5-10.1)
[2021-06-27 09:39] LABS: BLOOD UREA NITROGEN 12.2 mg/dL (7-18)
[2021-06-27 09:41] LABS: CREATININE 0.7 mg/dL (0.55-1.3); PHOSPHOROUS 3.2 mg/dL (2.5-4.9)
[2021-06-27] MEDS: hydrOXYzine PAMOATE 25 MG CAPSULE (FP) PO SCH ×2 (10:13→22:03)
[2021-06-27] MEDS: MINOXIDIL 2.5 MG TABLET PO SCH ×2 (10:13→22:03)
[2021-06-27] MEDS: FLUoxetine HCL 20 MG CAPSULE PO SCH (10:13)
[2021-06-27] MEDS: ENOXAPARIN NA (PORCINE) 40 MG/0.4 ML DISP.SYRIN SQ SCH (10:14)
[2021-06-27] MEDS: BUPRENORPHINE/NALOXONE 8 MG/2 MG FILM PACKET SL SCH ×2 (10:14→22:04)
[2021-06-27] MEDS: BUDESONIDE/FORMETEROL FUMARATE 160/4.5 mcg INHALER IH SCH ×2 (10:14→22:04)
[2021-06-27] MEDS ORDERED: guaiFENesin 200 MG/10 ML 10 ML UNIT-DOSE CUPS PO PRN (13:56)
[2021-06-27] MEDS: MONTELUKAST NA 10 MG TABLET PO SCH (22:03)
[2021-06-27] MEDS: QUEtiapine FUMARATE 100 MG TABLET (FP) PO SCH (22:03)
[2021-06-28] MEDS: methylPREDNISolone NA SUCC 40 MG/1 ML VIAL IVPUSH SCH ×3 (02:11→17:07)
[2021-06-28 07:03] LABS: HEMATOCRIT 33.7 % (32.4-45.2); HEMOGLOBIN 10.8 GM/dL (10.7-15.3); MCH 24.2 pg (25.7-33.7); MEAN CELL VOLUME 75.7 fl (80-96); MEAN PLT VOLUME 7.7 fl (7.5-11.1); PLATELET COUNT 288 10^3/uL (134-434); RBC 4.45 M/mm3 (3.60-5.2); RDW 17.4 % (11.6-15.6); WHITE BLOOD COUNT 7.7 K/mm3 (4.0-10.0)
[2021-06-28 07:15] LABS: CALCIUM 9.3 mg/dL (8.5-10.1)
[2021-06-28 07:19] LABS: CREATININE 0.6 mg/dL (0.55-1.3)
[2021-06-28] MEDS: ALBUTEROL SO4 2.5/IPRATROPIUM 0.5 INH SOL 3 ML VIAL.NEB. NEB SCH ×4 (07:32→19:47)
[2021-06-28] MEDS: ENOXAPARIN NA (PORCINE) 40 MG/0.4 ML DISP.SYRIN SQ SCH (09:20)
[2021-06-28] MEDS: FLUoxetine HCL 20 MG CAPSULE PO SCH (09:20)
[2021-06-28] MEDS: MINOXIDIL 2.5 MG TABLET PO SCH ×2 (09:20→21:45)
[2021-06-28] MEDS: BUDESONIDE/FORMETEROL FUMARATE 160/4.5 mcg INHALER IH SCH ×2 (09:20→21:46)
[2021-06-28] MEDS: hydrOXYzine PAMOATE 25 MG CAPSULE (FP) PO SCH ×2 (09:20→21:46)
[2021-06-28] MEDS: BUPRENORPHINE/NALOXONE 8 MG/2 MG FILM PACKET SL SCH ×2 (09:21→21:45)
[2021-06-28] MEDS: guaiFENesin 200 MG/10 ML 10 ML UNIT-DOSE CUPS PO SCH ×2 (17:07→21:45)
[2021-06-28] MEDS: MONTELUKAST NA 10 MG TABLET PO SCH (21:45)
[2021-06-28] MEDS: QUEtiapine FUMARATE 100 MG TABLET (FP) PO SCH (21:45)
[2021-06-29] MEDS: methylPREDNISolone NA SUCC 40 MG/1 ML VIAL IVPUSH SCH ×3 (02:02→17:27)
[2021-06-29] MEDS: guaiFENesin 200 MG/10 ML 10 ML UNIT-DOSE CUPS PO SCH ×4 (03:36→21:40)
[2021-06-29] MEDS: ALBUTEROL SO4 2.5/IPRATROPIUM 0.5 INH SOL 3 ML VIAL.NEB. NEB SCH ×4 (07:40→20:32)
[2021-06-29 07:52] LABS: BASO % 0.2 % (0-2.0); HEMATOCRIT 33.1 % (32.4-45.2); HEMOGLOBIN 10.9 GM/dL (10.7-15.3); MEAN CELL VOLUME 75.9 fl (80-96); MEAN PLT VOLUME 7.3 fl (7.5-11.1); MONO % 3.4 % (3.8-10.2); NEUT % 87.4 % (42.8-82.8); PLATELET COUNT 307 10^3/uL (134-434); RBC 4.36 M/mm3 (3.60-5.2); RDW 17.1 % (11.6-15.6); WHITE BLOOD COUNT 8.6 K/mm3 (4.0-10.0)
[2021-06-29 08:18] LABS: BLOOD UREA NITROGEN 14.5 mg/dL (7-18); CALCIUM 8.8 mg/dL (8.5-10.1)
[2021-06-29 08:22] LABS: CREATININE 0.6 mg/dL (0.55-1.3)
[2021-06-29] MEDS: hydrOXYzine PAMOATE 25 MG CAPSULE (FP) PO SCH ×2 (09:35→21:40)
[2021-06-29] MEDS: MINOXIDIL 2.5 MG TABLET PO SCH ×2 (09:35→21:40)
[2021-06-29] MEDS: FLUoxetine HCL 20 MG CAPSULE PO SCH (09:35)
[2021-06-29] MEDS: BUPRENORPHINE/NALOXONE 8 MG/2 MG FILM PACKET SL SCH ×2 (09:36→21:40)
[2021-06-29] MEDS: BUDESONIDE/FORMETEROL FUMARATE 160/4.5 mcg INHALER IH SCH ×2 (09:37→21:40)
[2021-06-29] MEDS: ENOXAPARIN NA (PORCINE) 40 MG/0.4 ML DISP.SYRIN SQ SCH (09:37)
[2021-06-29] MEDS: QUEtiapine FUMARATE 100 MG TABLET (FP) PO SCH (21:40)
[2021-06-29] MEDS: MONTELUKAST NA 10 MG TABLET PO SCH (21:40)
[2021-06-30] MEDS: methylPREDNISolone NA SUCC 40 MG/1 ML VIAL IVPUSH SCH ×3 (03:11→17:38)
[2021-06-30] MEDS: guaiFENesin 200 MG/10 ML 10 ML UNIT-DOSE CUPS PO SCH ×4 (03:49→21:57)
[2021-06-30] MEDS: ALBUTEROL SO4 2.5/IPRATROPIUM 0.5 INH SOL 3 ML VIAL.NEB. NEB SCH ×4 (07:50→20:03)
[2021-06-30] MEDS: MINOXIDIL 2.5 MG TABLET PO SCH ×2 (09:14→21:59)
[2021-06-30] MEDS: FLUoxetine HCL 20 MG CAPSULE PO SCH (09:14)
[2021-06-30] MEDS: BUDESONIDE/FORMETEROL FUMARATE 160/4.5 mcg INHALER IH SCH ×2 (09:15→22:21)
[2021-06-30] MEDS: hydrOXYzine PAMOATE 25 MG CAPSULE (FP) PO SCH ×2 (09:15→21:58)
[2021-06-30] MEDS: BUPRENORPHINE/NALOXONE 8 MG/2 MG FILM PACKET SL SCH ×2 (09:15→21:58)
[2021-06-30] MEDS: ENOXAPARIN NA (PORCINE) 40 MG/0.4 ML DISP.SYRIN SQ SCH (09:16)
[2021-06-30] MEDS: QUEtiapine FUMARATE 100 MG TABLET (FP) PO SCH (21:57)
[2021-06-30] MEDS: MONTELUKAST NA 10 MG TABLET PO SCH (21:58)
[2021-07-01] MEDS: methylPREDNISolone NA SUCC 40 MG/1 ML VIAL IVPUSH SCH ×2 (02:08→09:15)
[2021-07-01] MEDS: guaiFENesin 200 MG/10 ML 10 ML UNIT-DOSE CUPS PO SCH ×2 (03:00→08:17)
[2021-07-01 05:49] VITALS: BP 127/74; PULSE 77; TEMP 98.2
[2021-07-01] MEDS: ALBUTEROL SO4 2.5/IPRATROPIUM 0.5 INH SOL 3 ML VIAL.NEB. NEB SCH (08:10)
[2021-07-01] MEDS: BUPRENORPHINE/NALOXONE 8 MG/2 MG FILM PACKET SL SCH (09:15)
[2021-07-01] MEDS: MINOXIDIL 2.5 MG TABLET PO SCH (09:15)
[2021-07-01] MEDS: FLUoxetine HCL 20 MG CAPSULE PO SCH (09:15)
[2021-07-01] MEDS: ENOXAPARIN NA (PORCINE) 40 MG/0.4 ML DISP.SYRIN SQ SCH (09:16)
[2021-07-01] MEDS: hydrOXYzine PAMOATE 25 MG CAPSULE (FP) PO SCH (09:16)
[2021-07-01] MEDS: BUDESONIDE/FORMETEROL FUMARATE 160/4.5 mcg INHALER IH SCH (09:16)
== END 2021-07-01 11:19 | disposition home or self-care (01) | DRG 141 ==
LOC: JER 11:56 → JERBED 17:21 → J6S 22:45
PROVIDERS: ADMIT Internal Medicine; ATTEND Internal Medicine
DX: J45.41 Moderate persistent asthma with (acute) exacerbation (principal); F11.20 Opioid dependence, uncomplicated; N39.0 Urinary tract infection, site not specified; F32.A Depression, unspecified; J44.9 Chronic obstructive pulmonary disease, unspecified; M06.9 Rheumatoid arthritis, unspecified; R00.0 Tachycardia, unspecified; R91.1 Solitary pulmonary nodule
CPT/HCPCS: 36415; 71045-TC-FY; 71275-TC; 80048; 80053; 81003; 83735; 84100; 84703; 85025; 85027; 87040; 87086; 87804; 93005; 93010; 94150; 94640; 99291; C9803-CS; Q9967; U0003; U0005

== ENCOUNTER 2022-08-12 19:14 | Inpatient (IN) | payer OTHER ==
[2022-08-12] MEDS ORDERED: SODIUM CHLORIDE 0.9% 500 ML INFUS.BAG IV ONE (19:38)
[2022-08-12] MEDS ORDERED: ALBUTEROL SO4 2.5/IPRATROPIUM 0.5 INH SOL 3 ML VIAL.NEB. NEB ONE ×2 (20:14→22:27)
[2022-08-12] MEDS ORDERED: RACEPINEPHRINE IH SOL 2.25% 11.25 MG/0.5 ML VIAL IH ONE (20:17)
[2022-08-12] MEDS: ALBUTEROL SO4 2.5/IPRATROPIUM 0.5 INH SOL 3 ML VIAL.NEB. NEB SCH ×4 (20:18→22:21)
[2022-08-12] MEDS ORDERED: RACEPINEPHRINE IH SOL 2.25% 11.25 MG/0.5 ML VIAL NEB ONE (20:21)
[2022-08-12 20:30] LABS: BASO % 0.4 % (0-2.0); EOS % 1.7 % (0-4.5); HEMATOCRIT 35.1 % (32.4-45.2); HEMOGLOBIN 11.5 GM/dL (10.7-15.3); LYMPH % 13.8 % (8-40); MCHC 32.8 g/dl (32.0-36.0); MEAN CELL VOLUME 73.2 fl (80-96); MEAN PLT VOLUME 6.3 fl (7.5-11.1); MONO % 3.3 % (3.8-10.2); NEUT % 80.8 % (42.8-82.8); PLATELET COUNT 459 10^3/uL (134-434); RBC 4.79 M/mm3 (3.60-5.2); RDW 18.5 % (11.6-15.6); WHITE BLOOD COUNT 11.2 K/mm3 (4.0-10.0)
[2022-08-12 20:36] LABS: INR 1.17 (0.83-1.09); PROTHROMBIN TIME (PATIENT) 13.5 SEC (9.7-13.0)
[2022-08-12 20:37] LABS: POTASSIUM 3.7 mmol/L (3.5-5.1); VENOUS BASE EXCESS 3.9 mmol/L (-2-2); VENOUS O2 SATURATION 91.6 % (70-80); VENOUS PCO2 47.5 mmHg (38-52); VENOUS PH 7.407 (7.310-7.410)
[2022-08-12 20:38] LABS: ACTIVATED PTT 36.3 SECONDS (25.2-36.5)
[2022-08-12 20:39] LABS: CALCIUM 8.7 mg/dL (8.5-10.1)
[2022-08-12 20:40] LABS: ALBUMIN 2.8 g/dl (3.4-5.0); BLOOD UREA NITROGEN 6.8 mg/dL (7-18)
[2022-08-12 20:44] LABS: CREATININE 0.7 mg/dL (0.55-1.3)
[2022-08-12] MEDS: ALBUTEROL SO4 0.083% IH SOL 2.5 MG/3 ML VIAL.NEB. NEB SCH ×4 (20:45→21:08)
[2022-08-12 20:46] LABS: BILIRUBIN,TOTAL 0.3 mg/dL (0.2-1); TOT PROT 6.5 g/dl (6.4-8.2)
[2022-08-12] MEDS ORDERED: AZITHROMYCIN IVPB 500 MG in DEXTROSE 5%-WATER - 250 ML IVPB ONE ×2 (21:08→21:50)
[2022-08-12] MEDS ORDERED: AZITHROMYCIN IVPB 500 MG/250 ML BAG IVPB ONE (21:42)
[2022-08-12] MEDS ORDERED: CEFTRIAXONE 1 GM/50 ML BAG ONE (21:42)
[2022-08-12] MEDS ORDERED: ALBUTEROL SO4 HFA INHALER IH PRN (21:45)
[2022-08-12] MEDS ORDERED: MONTELUKAST NA 10 MG TABLET ONE (21:56)
[2022-08-12] MEDS: MONTELUKAST NA 10 MG TABLET PO SCH (22:14)
[2022-08-12] MEDS: BUDESONIDE/FORMETEROL FUMARATE 160/4.5 mcg INHALER IH SCH (22:14)
[2022-08-12] MEDS ORDERED: methylPREDNISolone NA SUCC 125 MG/2 ML VIAL IVPUSH ONE (22:30)
[2022-08-12] MEDS ORDERED: methylPREDNISolone NA SUCC 40 MG/1 ML VIAL ONE (22:31)
[2022-08-12 23:50] LABS: COCAINE, UR NEGATIVE (NEGATIVE); OPIATES, URI NEGATIVE (NEGATIVE); URINE AMPHETAMINES NEGATIVE (NEGATIVE); URINE BARBITURATES NEGATIVE (NEGATIVE)
[2022-08-12 23:51] LABS: METHADONE, UR NEGATIVE (NEGATIVE); PHENCYCLIDINE,URINE NEGATIVE (NEGATIVE); URINE BENZODIAZEPINES NEGATIVE (NEGATIVE)
[2022-08-13] MEDS: ALBUTEROL SO4 2.5/IPRATROPIUM 0.5 INH SOL 3 ML VIAL.NEB. NEB SCH ×6 (01:30→23:10)
[2022-08-13 01:58] VITALS: BMI 28.5
[2022-08-13] MEDS: methylPREDNISolone NA SUCC 40 MG/1 ML VIAL IVPUSH SCH ×4 (05:46→21:23)
[2022-08-13] MEDS: ENOXAPARIN NA (PORCINE) 40 MG/0.4 ML DISP.SYRIN SQ SCH (09:03)
[2022-08-13] MEDS: BUPRENORPHINE/NALOXONE 8 MG/2 MG FILM PACKET SL SCH ×2 (09:03→21:24)
[2022-08-13] MEDS: PARoxetine HCL 20 MG TABLET PO SCH (09:03)
[2022-08-13] MEDS: busPIRone HCL 5 MG TABLET PO SCH ×2 (09:03→21:23)
[2022-08-13 09:50] LABS: BASO % 0.1 % (0-2.0); HEMATOCRIT 33.7 % (32.4-45.2); HEMOGLOBIN 10.9 GM/dL (10.7-15.3); LYMPH % 9.8 % (8-40); MCH 24.4 pg (25.7-33.7); MCHC 32.2 g/dl (32.0-36.0); MEAN CELL VOLUME 75.8 fl (80-96); MEAN PLT VOLUME 6.7 fl (7.5-11.1); MONO % 0.8 % (3.8-10.2); NEUT % 89.3 % (42.8-82.8); PLATELET COUNT 485 10^3/uL (134-434); RBC 4.45 M/mm3 (3.60-5.2); RDW 18.2 % (11.6-15.6); WHITE BLOOD COUNT 6.4 K/mm3 (4.0-10.0)
[2022-08-13] MEDS ORDERED: AZITHROMYCIN IVPB 250 MG in DEXTROSE 5%-WATER - 250 ML IVPB SCH (10:00)
[2022-08-13] MEDS ORDERED: methylPREDNISolone NA SUCC 125 MG/2 ML VIAL IVPUSH SCH (10:00)
[2022-08-13 10:08] LABS: CHOLESTEROL 157 mg/dL (50-200)
[2022-08-13 10:10] LABS: LDL CHOLESTEROL (ONLY SJRH) 92 mg/dL (5-100)
[2022-08-13 10:11] LABS: HDL CHOLESTEROL 49 mg/dL (40-60)
[2022-08-13] MEDS: BUDESONIDE/FORMETEROL FUMARATE 160/4.5 mcg INHALER IH SCH ×2 (14:57→21:24)
[2022-08-13] MEDS: MONTELUKAST NA 10 MG TABLET PO SCH (21:23)
[2022-08-14] MEDS: ALBUTEROL SO4 2.5/IPRATROPIUM 0.5 INH SOL 3 ML VIAL.NEB. NEB SCH ×5 (04:30→19:43)
[2022-08-14] MEDS: methylPREDNISolone NA SUCC 40 MG/1 ML VIAL IVPUSH SCH ×4 (06:19→21:04)
[2022-08-14 08:54] LABS: HEMATOCRIT 32.4 % (32.4-45.2); HEMOGLOBIN 10.3 GM/dL (10.7-15.3); MCH 23.2 pg (25.7-33.7); MCHC 31.9 g/dl (32.0-36.0); MEAN CELL VOLUME 72.8 fl (80-96); MEAN PLT VOLUME 6.6 fl (7.5-11.1); PLATELET COUNT 468 10^3/uL (134-434); RBC 4.45 M/mm3 (3.60-5.2); RDW 18.7 % (11.6-15.6); WHITE BLOOD COUNT 22.7 K/mm3 (4.0-10.0)
[2022-08-14 09:09] LABS: CALCIUM 9.4 mg/dL (8.5-10.1)
[2022-08-14 09:10] LABS: ALBUMIN 2.8 g/dl (3.4-5.0); BLOOD UREA NITROGEN 8.8 mg/dL (7-18); MAGNESIUM 1.9 mg/dL (1.8-2.4)
[2022-08-14 09:13] LABS: CREATININE 0.6 mg/dL (0.55-1.3)
[2022-08-14 09:14] LABS: TOT PROT 6.6 g/dl (6.4-8.2)
[2022-08-14 09:15] LABS: BILIRUBIN,TOTAL 0.1 mg/dL (0.2-1); PHOSPHOROUS 3.2 mg/dL (2.5-4.9)
[2022-08-14 09:28] LABS: INR 1.09 (0.83-1.09); PROTHROMBIN TIME (PATIENT) 12.6 SEC (9.7-13.0)
[2022-08-14 09:30] LABS: ACTIVATED PTT 29.8 SECONDS (25.2-36.5)
[2022-08-14] MEDS: ENOXAPARIN NA (PORCINE) 40 MG/0.4 ML DISP.SYRIN SQ SCH (10:43)
[2022-08-14] MEDS: PARoxetine HCL 20 MG TABLET PO SCH (10:45)
[2022-08-14] MEDS: BUPRENORPHINE/NALOXONE 8 MG/2 MG FILM PACKET SL SCH ×2 (10:45→22:05)
[2022-08-14] MEDS: busPIRone HCL 5 MG TABLET PO SCH ×2 (10:48→22:05)
[2022-08-14] MEDS: BUDESONIDE/FORMETEROL FUMARATE 160/4.5 mcg INHALER IH SCH ×2 (10:51→22:06)
[2022-08-14 12:10] LABS: ANISOCYTOSIS 2+; MACROCYTOSIS 0; OVALOCYTE 2+
[2022-08-14] MEDS: MONTELUKAST NA 10 MG TABLET PO SCH (22:05)
[2022-08-15] MEDS: methylPREDNISolone NA SUCC 40 MG/1 ML VIAL IVPUSH SCH ×4 (02:02→22:03)
[2022-08-15] MEDS: ALBUTEROL SO4 2.5/IPRATROPIUM 0.5 INH SOL 3 ML VIAL.NEB. NEB SCH ×7 (04:35→23:49)
[2022-08-15] MEDS: PARoxetine HCL 20 MG TABLET PO SCH (09:23)
[2022-08-15] MEDS: BUPRENORPHINE/NALOXONE 8 MG/2 MG FILM PACKET SL SCH ×2 (09:23→22:06)
[2022-08-15] MEDS: ENOXAPARIN NA (PORCINE) 40 MG/0.4 ML DISP.SYRIN SQ SCH (09:23)
[2022-08-15] MEDS: busPIRone HCL 5 MG TABLET PO SCH ×2 (09:23→22:06)
[2022-08-15] MEDS: BUDESONIDE/FORMETEROL FUMARATE 160/4.5 mcg INHALER IH SCH ×2 (10:23→22:10)
[2022-08-15] MEDS: MONTELUKAST NA 10 MG TABLET PO SCH (22:07)
[2022-08-16] MEDS: methylPREDNISolone NA SUCC 40 MG/1 ML VIAL IVPUSH SCH ×4 (03:26→21:13)
[2022-08-16] MEDS: ALBUTEROL SO4 2.5/IPRATROPIUM 0.5 INH SOL 3 ML VIAL.NEB. NEB SCH ×6 (04:00→23:00)
[2022-08-16] MEDS: busPIRone HCL 5 MG TABLET PO SCH ×2 (10:15→21:13)
[2022-08-16] MEDS: PARoxetine HCL 20 MG TABLET PO SCH (10:15)
[2022-08-16] MEDS: ENOXAPARIN NA (PORCINE) 40 MG/0.4 ML DISP.SYRIN SQ SCH (10:16)
[2022-08-16] MEDS: BUPRENORPHINE/NALOXONE 8 MG/2 MG FILM PACKET SL SCH ×2 (10:16→21:13)
[2022-08-16] MEDS: BUDESONIDE/FORMETEROL FUMARATE 160/4.5 mcg INHALER IH SCH ×2 (10:18→21:16)
[2022-08-16] MEDS: MONTELUKAST NA 10 MG TABLET PO SCH (21:13)
[2022-08-17] MEDS: methylPREDNISolone NA SUCC 40 MG/1 ML VIAL IVPUSH SCH ×3 (02:00→17:30)
[2022-08-17] MEDS: ALBUTEROL SO4 2.5/IPRATROPIUM 0.5 INH SOL 3 ML VIAL.NEB. NEB SCH ×5 (04:51→20:50)
[2022-08-17] MEDS: busPIRone HCL 5 MG TABLET PO SCH ×2 (09:00→22:14)
[2022-08-17] MEDS: ENOXAPARIN NA (PORCINE) 40 MG/0.4 ML DISP.SYRIN SQ SCH (09:00)
[2022-08-17] MEDS: PARoxetine HCL 20 MG TABLET PO SCH (09:00)
[2022-08-17] MEDS: BUPRENORPHINE/NALOXONE 8 MG/2 MG FILM PACKET SL SCH ×2 (09:00→22:15)
[2022-08-17] MEDS: BUDESONIDE/FORMETEROL FUMARATE 160/4.5 mcg INHALER IH SCH ×2 (09:01→22:15)
[2022-08-17] MEDS: MONTELUKAST NA 10 MG TABLET PO SCH (22:14)
[2022-08-18] MEDS: methylPREDNISolone NA SUCC 40 MG/1 ML VIAL IVPUSH SCH ×4 (02:11→22:53)
[2022-08-18] MEDS: ALBUTEROL SO4 2.5/IPRATROPIUM 0.5 INH SOL 3 ML VIAL.NEB. NEB SCH ×4 (07:15→20:39)
[2022-08-18] MEDS: PARoxetine HCL 20 MG TABLET PO SCH (10:51)
[2022-08-18] MEDS: BUPRENORPHINE/NALOXONE 8 MG/2 MG FILM PACKET SL SCH ×2 (10:51→22:53)
[2022-08-18] MEDS: ENOXAPARIN NA (PORCINE) 40 MG/0.4 ML DISP.SYRIN SQ SCH (10:51)
[2022-08-18] MEDS: busPIRone HCL 5 MG TABLET PO SCH ×2 (10:51→22:53)
[2022-08-18] MEDS: BUDESONIDE/FORMETEROL FUMARATE 160/4.5 mcg INHALER IH SCH ×2 (10:54→22:53)
[2022-08-18 14:03] LABS: HEMATOCRIT 38.8 % (32.4-45.2); HEMOGLOBIN 12.1 GM/dL (10.7-15.3); MCH 23.4 pg (25.7-33.7); MCHC 31.2 g/dl (32.0-36.0); MEAN CELL VOLUME 75.1 fl (80-96); MEAN PLT VOLUME 7.8 fl (7.5-11.1); PLATELET COUNT 431 10^3/uL (134-434); RBC 5.17 M/mm3 (3.60-5.2); RDW 18.4 % (11.6-15.6); WHITE BLOOD COUNT 12.7 K/mm3 (4.0-10.0)
[2022-08-18 14:13] LABS: POTASSIUM 5.2 mmol/L (3.5-5.1)
[2022-08-18 14:14] LABS: CALCIUM 9.5 mg/dL (8.5-10.1)
[2022-08-18 14:15] LABS: BLOOD UREA NITROGEN 16.9 mg/dL (7-18)
[2022-08-18 14:18] LABS: CREATININE 0.9 mg/dL (0.55-1.3)
[2022-08-18 14:45] LABS: ANISOCYTOSIS 0; HELMET CELLS 0; HOWELL-JOLLY BODIES 0; MACROCYTOSIS 0; OVALOCYTE 0; ROULEAU 0; SICKELED CELLS 0; TARGET CELLS 0; TEAR DROP CELLS 0; TOXIC GRANULATION 0
[2022-08-18] MEDS: MONTELUKAST NA 10 MG TABLET PO SCH (22:53)
[2022-08-19] MEDS: methylPREDNISolone NA SUCC 40 MG/1 ML VIAL IVPUSH SCH ×4 (02:30→21:44)
[2022-08-19] MEDS: ALBUTEROL SO4 2.5/IPRATROPIUM 0.5 INH SOL 3 ML VIAL.NEB. NEB SCH ×4 (07:55→20:56)
[2022-08-19 09:29] LABS: HEMOGLOBIN 12.4 GM/dL (10.7-15.3); MCH 23.3 pg (25.7-33.7); MCHC 31.9 g/dl (32.0-36.0); MEAN CELL VOLUME 73.3 fl (80-96); PLATELET COUNT 516 10^3/uL (134-434); RBC 5.32 M/mm3 (3.60-5.2); RDW 18.5 % (11.6-15.6); WHITE BLOOD COUNT 13.4 K/mm3 (4.0-10.0)
[2022-08-19 09:38] LABS: POTASSIUM 4.5 mmol/L (3.5-5.1)
[2022-08-19 09:47] LABS: CALCIUM 9.4 mg/dL (8.5-10.1)
[2022-08-19 09:48] LABS: BLOOD UREA NITROGEN 21.4 mg/dL (7-18)
[2022-08-19] MEDS: busPIRone HCL 5 MG TABLET PO SCH ×2 (10:07→21:44)
[2022-08-19] MEDS: ENOXAPARIN NA (PORCINE) 40 MG/0.4 ML DISP.SYRIN SQ SCH (10:09)
[2022-08-19] MEDS: BUPRENORPHINE/NALOXONE 8 MG/2 MG FILM PACKET SL SCH ×2 (10:10→21:44)
[2022-08-19] MEDS: PARoxetine HCL 20 MG TABLET PO SCH (10:10)
[2022-08-19] MEDS: BUDESONIDE/FORMETEROL FUMARATE 160/4.5 mcg INHALER IH SCH ×2 (10:12→21:44)
[2022-08-19] MEDS: LORATADINE 10 MG TABLET PO SCH (11:56)
[2022-08-19] MEDS: guaiFENesin/D-METHORPHAN HB 10 ML UNIT-DOSE CUPS PO SCH ×2 (11:56→21:44)
[2022-08-19 11:58] LABS: ANISOCYTOSIS 0; MACROCYTOSIS 0; OVALOCYTE 1+
[2022-08-19] MEDS: MONTELUKAST NA 10 MG TABLET PO SCH (21:44)
[2022-08-20] MEDS: methylPREDNISolone NA SUCC 40 MG/1 ML VIAL IVPUSH SCH ×3 (02:10→17:05)
[2022-08-20] MEDS: guaiFENesin/D-METHORPHAN HB 10 ML UNIT-DOSE CUPS PO SCH ×3 (03:10→21:11)
[2022-08-20] MEDS: ALBUTEROL SO4 2.5/IPRATROPIUM 0.5 INH SOL 3 ML VIAL.NEB. NEB SCH ×4 (07:44→20:58)
[2022-08-20 09:41] LABS: HEMATOCRIT 37.6 % (32.4-45.2); HEMOGLOBIN 11.7 GM/dL (10.7-15.3); MCH 22.8 pg (25.7-33.7); MCHC 31.2 g/dl (32.0-36.0); MEAN CELL VOLUME 73.1 fl (80-96); PLATELET COUNT 503 10^3/uL (134-434); RBC 5.15 M/mm3 (3.60-5.2); RDW 18.8 % (11.6-15.6); WHITE BLOOD COUNT 14.3 K/mm3 (4.0-10.0)
[2022-08-20 10:02] LABS: POTASSIUM 4.2 mmol/L (3.5-5.1)
[2022-08-20 10:04] LABS: CALCIUM 9.1 mg/dL (8.5-10.1)
[2022-08-20 10:05] LABS: BLOOD UREA NITROGEN 19.2 mg/dL (7-18)
[2022-08-20 10:08] LABS: CREATININE 0.9 mg/dL (0.55-1.3)
[2022-08-20] MEDS: LORATADINE 10 MG TABLET PO SCH (10:17)
[2022-08-20] MEDS: PANTOPRAZOLE 40 MG TABLET PO SCH (10:17)
[2022-08-20] MEDS: BUPRENORPHINE/NALOXONE 8 MG/2 MG FILM PACKET SL SCH ×2 (10:17→21:12)
[2022-08-20] MEDS: ENOXAPARIN NA (PORCINE) 40 MG/0.4 ML DISP.SYRIN SQ SCH (10:18)
[2022-08-20] MEDS: PARoxetine HCL 20 MG TABLET PO SCH (10:18)
[2022-08-20] MEDS: busPIRone HCL 5 MG TABLET PO SCH ×2 (10:20→21:11)
[2022-08-20] MEDS: BUDESONIDE/FORMETEROL FUMARATE 160/4.5 mcg INHALER IH SCH ×2 (10:21→21:12)
[2022-08-20] MEDS ORDERED: BENZOCAINE 28 GM HEMORRHOIDAL OINTMENT RC PRN (10:37)
[2022-08-20] MEDS: MONTELUKAST NA 10 MG TABLET PO SCH (21:11)
[2022-08-21] MEDS: methylPREDNISolone NA SUCC 40 MG/1 ML VIAL IVPUSH SCH (00:15)
[2022-08-21] MEDS: guaiFENesin/D-METHORPHAN HB 10 ML UNIT-DOSE CUPS PO SCH ×3 (03:21→20:16)
[2022-08-21] MEDS: ALBUTEROL SO4 2.5/IPRATROPIUM 0.5 INH SOL 3 ML VIAL.NEB. NEB SCH ×4 (07:15→21:23)
[2022-08-21] MEDS: predniSONE 20 MG TABLET (UD) PO SCH ×3 (08:44→21:28)
[2022-08-21] MEDS: PANTOPRAZOLE 40 MG TABLET PO SCH ×2 (08:44→09:14)
[2022-08-21] MEDS: LORATADINE 10 MG TABLET PO SCH ×2 (08:44→09:13)
[2022-08-21] MEDS: BUPRENORPHINE/NALOXONE 8 MG/2 MG FILM PACKET SL SCH ×3 (08:44→21:28)
[2022-08-21] MEDS: ENOXAPARIN NA (PORCINE) 40 MG/0.4 ML DISP.SYRIN SQ SCH ×2 (08:44→09:13)
[2022-08-21] MEDS: PARoxetine HCL 20 MG TABLET PO SCH ×2 (08:44→09:13)
[2022-08-21] MEDS: busPIRone HCL 5 MG TABLET PO SCH ×3 (08:44→21:28)
[2022-08-21] MEDS: BUDESONIDE/FORMETEROL FUMARATE 160/4.5 mcg INHALER IH SCH ×2 (09:14→21:38)
[2022-08-21] MEDS: MONTELUKAST NA 10 MG TABLET PO SCH (21:28)
[2022-08-22] MEDS: guaiFENesin/D-METHORPHAN HB 10 ML UNIT-DOSE CUPS PO SCH ×3 (06:32→21:28)
[2022-08-22 06:38] VITALS: RESP 18
[2022-08-22] MEDS: ALBUTEROL SO4 2.5/IPRATROPIUM 0.5 INH SOL 3 ML VIAL.NEB. NEB SCH (09:12)
[2022-08-22] MEDS: busPIRone HCL 5 MG TABLET PO SCH ×2 (09:44→21:28)
[2022-08-22] MEDS: predniSONE 20 MG TABLET (UD) PO SCH ×2 (09:45→21:22)
[2022-08-22] MEDS: PANTOPRAZOLE 40 MG TABLET PO SCH (09:45)
[2022-08-22] MEDS: ENOXAPARIN NA (PORCINE) 40 MG/0.4 ML DISP.SYRIN SQ SCH (09:45)
[2022-08-22] MEDS: PARoxetine HCL 20 MG TABLET PO SCH (09:45)
[2022-08-22] MEDS: BUPRENORPHINE/NALOXONE 8 MG/2 MG FILM PACKET SL SCH ×2 (09:45→21:28)
[2022-08-22] MEDS: BUDESONIDE/FORMETEROL FUMARATE 160/4.5 mcg INHALER IH SCH ×2 (09:46→21:41)
[2022-08-22 09:52] LABS: HEMATOCRIT 38.2 % (32.4-45.2); MCH 23.6 pg (25.7-33.7); MCHC 31.4 g/dl (32.0-36.0); MEAN CELL VOLUME 75.3 fl (80-96); MEAN PLT VOLUME 7.7 fl (7.5-11.1); PLATELET COUNT 444 10^3/uL (134-434); RBC 5.08 M/mm3 (3.60-5.2); RDW 18.8 % (11.6-15.6); WHITE BLOOD COUNT 12.6 K/mm3 (4.0-10.0)
[2022-08-22 10:02] LABS: POTASSIUM 4.8 mmol/L (3.5-5.1)
[2022-08-22 10:11] LABS: BLOOD UREA NITROGEN 18.1 mg/dL (7-18); CALCIUM 9.1 mg/dL (8.5-10.1)
[2022-08-22 10:14] LABS: CREATININE 0.7 mg/dL (0.55-1.3)
[2022-08-22] MEDS: LORATADINE 10 MG TABLET PO SCH (12:16)
[2022-08-22] MEDS: MONTELUKAST NA 10 MG TABLET PO SCH (21:28)
[2022-08-23] MEDS: guaiFENesin/D-METHORPHAN HB 10 ML UNIT-DOSE CUPS PO SCH ×2 (03:26→12:41)
[2022-08-23] MEDS: busPIRone HCL 5 MG TABLET PO SCH (10:18)
[2022-08-23] MEDS: predniSONE 20 MG TABLET (UD) PO SCH (10:18)
[2022-08-23] MEDS: PANTOPRAZOLE 40 MG TABLET PO SCH (10:18)
[2022-08-23] MEDS: PARoxetine HCL 20 MG TABLET PO SCH (10:18)
[2022-08-23] MEDS: ENOXAPARIN NA (PORCINE) 40 MG/0.4 ML DISP.SYRIN SQ SCH (10:19)
[2022-08-23] MEDS: BUPRENORPHINE/NALOXONE 8 MG/2 MG FILM PACKET SL SCH (10:21)
[2022-08-23] MEDS: LORATADINE 10 MG TABLET PO SCH (10:24)
[2022-08-23] MEDS: BUDESONIDE/FORMETEROL FUMARATE 160/4.5 mcg INHALER IH SCH (10:29)
[2022-08-23] MEDS ORDERED: TIOTROPIUM BROMIDE 2.5 MCG (SPIRIVA) RESPIMAT INHALER IH SCH (13:45)
[2022-08-23 16:16] VITALS: BP 133/81; PULSE 90; TEMP 98.6
== END 2022-08-23 17:01 | disposition home or self-care (01) | DRG 141 ==
LOC: EDBD 19:14 → JER 19:14 → JERBED 21:08 → J5S 08-13 01:26
PROVIDERS: ADMIT Internal Medicine; ATTEND Student in an Organized Health Care Education/Training Program
DX: J45.901 Unspecified asthma with (acute) exacerbation (principal); J96.01 Acute respiratory failure with hypoxia; F11.20 Opioid dependence, uncomplicated; M06.9 Rheumatoid arthritis, unspecified; F41.8 Other specified anxiety disorders
CPT/HCPCS: 0241U-QW; 36415; 71045-TC-FY; 80048; 80053; 80061; 80307; 82803; 83036; 83735; 84100; 84484; 84703; 85025; 85027; 85610; 85730; 93005; 93010; 94150; 94640; 94761; 99285-25

== ENCOUNTER 2022-10-05 15:48 | Inpatient (IN) | payer OTHER ==
[2022-10-05] MEDS ORDERED: methylPREDNISolone NA SUCC 125 MG/2 ML VIAL IVPUSH ONE (16:03)
[2022-10-05 16:04] VITALS: BMI 30.5
[2022-10-05] MEDS ORDERED: MAGNESIUM SULF 50% (8.12 MEQ/2 ML-1 GM VIAL) IVPB ONE (16:04)
[2022-10-05] MEDS ORDERED: ALBUTEROL SO4 2.5/IPRATROPIUM 0.5 INH SOL 3 ML VIAL.NEB. NEB ONE (16:07)
[2022-10-05] MEDS ORDERED: DEXAMETHASONE SOD PHOSPHATE 10 MG/1 ML VIAL ONE (16:08)
[2022-10-05] MEDS ORDERED: ALBUTEROL SO4 2.5/IPRATROPIUM 0.5 INH SOL 3 ML VIAL.NEB. NEB SCH ×2 (16:15→17:00)
[2022-10-05] MEDS ORDERED: methylPREDNISolone NA SUCC 125 MG/2 ML VIAL ONE (16:23)
[2022-10-05] MEDS ORDERED: MAGNESIUM 1GM/D5W - 1 GM/100 ML IVPB IVPB ONE (16:23)
[2022-10-05 16:36] LABS: VENOUS BASE EXCESS 4.8 mmol/L (-2-2); VENOUS O2 SATURATION 94.6 % (70-80); VENOUS PCO2 50.9 mmHg (38-52); VENOUS PH 7.399 (7.310-7.410)
[2022-10-05 16:39] LABS: BASO % 0.3 % (0-2.0); EOS % 2.4 % (0-4.5); HEMOGLOBIN 12.3 GM/dL (10.7-15.3); LYMPH % 12.7 % (8-40); MCHC 32.4 g/dl (32.0-36.0); MEAN PLT VOLUME 7.6 fl (7.5-11.1); MONO % 7.6 % (3.8-10.2); PLATELET COUNT 403 10^3/uL (134-434); RBC 4.94 M/mm3 (3.60-5.2); RDW 18.3 % (11.6-15.6); WHITE BLOOD COUNT 10.8 K/mm3 (4.0-10.0)
[2022-10-05 16:53] LABS: INR 1.05 (0.83-1.09); PROTHROMBIN TIME (PATIENT) 12.2 SEC (9.7-13.0)
[2022-10-05 16:56] LABS: ACTIVATED PTT 33.1 SECONDS (25.2-36.5)
[2022-10-05 16:59] LABS: POTASSIUM 4.1 mmol/L (3.5-5.1)
[2022-10-05 17:01] LABS: ALBUMIN 3.2 g/dl (3.4-5.0); CALCIUM 9.2 mg/dL (8.5-10.1); MAGNESIUM 1.9 mg/dL (1.8-2.4)
[2022-10-05 17:02] LABS: BLOOD UREA NITROGEN 7.3 mg/dL (7-18)
[2022-10-05 17:04] LABS: CREATININE 0.8 mg/dL (0.55-1.3)
[2022-10-05 17:06] LABS: BILIRUBIN,TOTAL 0.3 mg/dL (0.2-1); TOT PROT 6.8 g/dl (6.4-8.2)
[2022-10-05] MEDS ORDERED: ALBUTEROL SO4 0.083% IH SOL 2.5 MG/3 ML VIAL.NEB. NEB ONE ×2 (17:34)
[2022-10-05] MEDS ORDERED: EPINEPHrine 1:1,000 0.3 MG/0.3 ML SYR IM ONE (19:48)
[2022-10-05] MEDS ORDERED: EPINEPHrine/PF 1 MG/1 ML (1:1,000) AMPULE ONE ×2 (19:58→20:41)
[2022-10-05 21:12] LABS: POTASSIUM 3.1 mmol/L (3.5-5.1)
[2022-10-05 21:13] LABS: BLOOD UREA NITROGEN 7.6 mg/dL (7-18); CALCIUM 8.8 mg/dL (8.5-10.1); MAGNESIUM 2.1 mg/dL (1.8-2.4)
[2022-10-05] MEDS ORDERED: POTASSIUM CHLORIDE ORAL LIQUID 20 MEQ/15 ML PO ONE (22:00)
[2022-10-05] MEDS ORDERED: POTASSIUM CHLORIDE ORAL LIQUID 20 MEQ/15 ML ONE (22:02)
[2022-10-05] MEDS ORDERED: ALBUTEROL SO4 HFA INHALER IH PRN (22:16)
[2022-10-06] MEDS ORDERED: POTASSIUM CHLORIDE TABS 20 MEQ TABLET.ER (FP) PO ONE (00:30)
[2022-10-06] MEDS ORDERED: QUEtiapine FUMARATE 300 MG TABLET PO ONE (00:36)
[2022-10-06] MEDS: ALBUTEROL SO4 2.5/IPRATROPIUM 0.5 INH SOL 3 ML VIAL.NEB. NEB SCH ×6 (00:38→20:49)
[2022-10-06] MEDS: methylPREDNISolone NA SUCC 40 MG/1 ML VIAL IVPUSH SCH ×2 (01:59→10:42)
[2022-10-06] MEDS: BUPRENORPHINE/NALOXONE 8 MG/2 MG FILM PACKET SL SCH ×3 (01:59→21:28)
[2022-10-06] MEDS: ENOXAPARIN NA (PORCINE) 40 MG/0.4 ML DISP.SYRIN SQ SCH ×2 (06:21→10:42)
[2022-10-06] MEDS ORDERED: PATIENT'S OWN MEDICATION (NON-FORMULARY) (Buspirone Hcl [Buspar -] 15 MG Tablet) PO SCH (10:00)
[2022-10-06] MEDS ORDERED: FLUTICASONE/UMECLIDIN/VILANTER(100-62.5-25 TRELEGY ELLIPTA) INAHLER IH SCH (10:00)
[2022-10-06 10:22] LABS: HEMATOCRIT 34.5 % (32.4-45.2); HEMOGLOBIN 11.2 GM/dL (10.7-15.3); MCH 25.8 pg (25.7-33.7); MCHC 32.5 g/dl (32.0-36.0); MEAN CELL VOLUME 79.3 fl (80-96); PLATELET COUNT 405 10^3/uL (134-434); RBC 4.35 M/mm3 (3.60-5.2); RDW 18.4 % (11.6-15.6); WHITE BLOOD COUNT 8.3 K/mm3 (4.0-10.0)
[2022-10-06] MEDS: LORATADINE 10 MG TABLET PO SCH (10:42)
[2022-10-06] MEDS: PANTOPRAZOLE 40 MG TABLET PO SCH (10:42)
[2022-10-06] MEDS: BUSPIRONE HCL 10 MG, BUSPIRONE HCL 5 MG PO SCH ×2 (10:42→21:31)
[2022-10-06] MEDS: PARoxetine HCL 20 MG TABLET PO SCH (10:42)
[2022-10-06 10:48] LABS: POTASSIUM 4.1 mmol/L (3.5-5.1)
[2022-10-06 10:51] LABS: BLOOD UREA NITROGEN 6.9 mg/dL (7-18); MAGNESIUM 2.1 mg/dL (1.8-2.4)
[2022-10-06 10:52] LABS: CALCIUM 9.6 mg/dL (8.5-10.1)
[2022-10-06 10:54] LABS: CREATININE 0.7 mg/dL (0.55-1.3)
[2022-10-06 10:56] LABS: BILIRUBIN,TOTAL 0.4 mg/dL (0.2-1); TOT PROT 6.6 g/dl (6.4-8.2)
[2022-10-06 10:58] LABS: PHOSPHOROUS 2.6 mg/dL (2.5-4.9)
[2022-10-06] MEDS: BUDESONIDE/FORMETEROL FUMARATE 160/4.5 mcg INHALER IH SCH ×2 (13:14→21:37)
[2022-10-06] MEDS: MONTELUKAST NA 10 MG TABLET PO SCH (21:27)
[2022-10-07] MEDS: ALBUTEROL SO4 2.5/IPRATROPIUM 0.5 INH SOL 3 ML VIAL.NEB. NEB SCH ×4 (09:00→20:36)
[2022-10-07] MEDS: ENOXAPARIN NA (PORCINE) 40 MG/0.4 ML DISP.SYRIN SQ SCH (09:04)
[2022-10-07] MEDS: BUSPIRONE HCL 10 MG, BUSPIRONE HCL 5 MG PO SCH ×2 (09:04→21:04)
[2022-10-07] MEDS: BUPRENORPHINE/NALOXONE 8 MG/2 MG FILM PACKET SL SCH ×2 (09:04→21:04)
[2022-10-07] MEDS: LORATADINE 10 MG TABLET PO SCH (09:04)
[2022-10-07] MEDS: PANTOPRAZOLE 40 MG TABLET PO SCH (09:05)
[2022-10-07] MEDS: PARoxetine HCL 20 MG TABLET PO SCH (09:05)
[2022-10-07] MEDS: BUDESONIDE/FORMETEROL FUMARATE 160/4.5 mcg INHALER IH SCH ×2 (09:09→21:05)
[2022-10-07] MEDS ORDERED: predniSONE 20 MG TABLET (UD) PO SCH (10:00)
[2022-10-07 10:05] LABS: HEMATOCRIT 34.5 % (32.4-45.2); HEMOGLOBIN 11.3 GM/dL (10.7-15.3); MCH 25.5 pg (25.7-33.7); MCHC 32.8 g/dl (32.0-36.0); MEAN CELL VOLUME 77.7 fl (80-96); MEAN PLT VOLUME 7.5 fl (7.5-11.1); PLATELET COUNT 407 10^3/uL (134-434); RBC 4.44 M/mm3 (3.60-5.2); RDW 18.6 % (11.6-15.6); WHITE BLOOD COUNT 14.6 K/mm3 (4.0-10.0)
[2022-10-07 10:19] LABS: POTASSIUM 3.9 mmol/L (3.5-5.1)
[2022-10-07 10:22] LABS: BLOOD UREA NITROGEN 12.5 mg/dL (7-18); CALCIUM 9.6 mg/dL (8.5-10.1)
[2022-10-07] MEDS: methylPREDNISolone NA SUCC 40 MG/1 ML VIAL IVPUSH SCH (17:17)
[2022-10-07] MEDS: MONTELUKAST NA 10 MG TABLET PO SCH (21:04)
[2022-10-08] MEDS: methylPREDNISolone NA SUCC 40 MG/1 ML VIAL IVPUSH SCH ×3 (01:58→17:28)
[2022-10-08] MEDS: ALBUTEROL SO4 2.5/IPRATROPIUM 0.5 INH SOL 3 ML VIAL.NEB. NEB SCH ×4 (07:52→19:55)
[2022-10-08] MEDS: BUPRENORPHINE/NALOXONE 8 MG/2 MG FILM PACKET SL SCH ×2 (09:43→21:06)
[2022-10-08] MEDS: BUSPIRONE HCL 10 MG, BUSPIRONE HCL 5 MG PO SCH ×2 (09:43→21:06)
[2022-10-08] MEDS: PANTOPRAZOLE 40 MG TABLET PO SCH (09:43)
[2022-10-08] MEDS: ENOXAPARIN NA (PORCINE) 40 MG/0.4 ML DISP.SYRIN SQ SCH (09:43)
[2022-10-08] MEDS: LORATADINE 10 MG TABLET PO SCH (09:43)
[2022-10-08] MEDS: PARoxetine HCL 20 MG TABLET PO SCH (09:43)
[2022-10-08 09:57] VITALS: RESP 18
[2022-10-08] MEDS: BUDESONIDE/FORMETEROL FUMARATE 160/4.5 mcg INHALER IH SCH ×2 (10:32→21:05)
[2022-10-08] MEDS: MONTELUKAST NA 10 MG TABLET PO SCH (21:06)
[2022-10-09] MEDS: methylPREDNISolone NA SUCC 40 MG/1 ML VIAL IVPUSH SCH ×3 (01:42→17:50)
[2022-10-09] MEDS: ALBUTEROL SO4 2.5/IPRATROPIUM 0.5 INH SOL 3 ML VIAL.NEB. NEB SCH ×4 (07:45→21:20)
[2022-10-09] MEDS: LORATADINE 10 MG TABLET PO SCH (09:45)
[2022-10-09] MEDS: PANTOPRAZOLE 40 MG TABLET PO SCH (09:45)
[2022-10-09] MEDS: ENOXAPARIN NA (PORCINE) 40 MG/0.4 ML DISP.SYRIN SQ SCH (09:45)
[2022-10-09] MEDS: BUPRENORPHINE/NALOXONE 8 MG/2 MG FILM PACKET SL SCH ×2 (09:45→21:38)
[2022-10-09] MEDS: PARoxetine HCL 20 MG TABLET PO SCH (09:45)
[2022-10-09] MEDS: BUDESONIDE/FORMETEROL FUMARATE 160/4.5 mcg INHALER IH SCH (09:50)
[2022-10-09] MEDS: BUSPIRONE HCL 10 MG, BUSPIRONE HCL 5 MG PO SCH ×2 (10:37→21:38)
[2022-10-09] MEDS: MONTELUKAST NA 10 MG TABLET PO SCH (21:38)
[2022-10-10] MEDS: methylPREDNISolone NA SUCC 40 MG/1 ML VIAL IVPUSH SCH ×2 (02:09→09:26)
[2022-10-10] MEDS: BUDESONIDE/FORMETEROL FUMARATE 160/4.5 mcg INHALER IH SCH ×3 (03:47→22:44)
[2022-10-10] MEDS: ALBUTEROL SO4 2.5/IPRATROPIUM 0.5 INH SOL 3 ML VIAL.NEB. NEB SCH ×4 (08:40→20:35)
[2022-10-10 08:55] LABS: HEMATOCRIT 34.8 % (32.4-45.2); HEMOGLOBIN 11.1 GM/dL (10.7-15.3); MCH 25.6 pg (25.7-33.7); MCHC 31.8 g/dl (32.0-36.0); MEAN CELL VOLUME 80.5 fl (80-96); MEAN PLT VOLUME 7.8 fl (7.5-11.1); PLATELET COUNT 451 10^3/uL (134-434); RBC 4.32 M/mm3 (3.60-5.2); RDW 18.9 % (11.6-15.6); WHITE BLOOD COUNT 18.6 K/mm3 (4.0-10.0)
[2022-10-10 09:01] LABS: POTASSIUM 4.4 mmol/L (3.5-5.1)
[2022-10-10 09:15] LABS: BLOOD UREA NITROGEN 13.7 mg/dL (7-18); CALCIUM 9.5 mg/dL (8.5-10.1)
[2022-10-10 09:19] LABS: CREATININE 0.9 mg/dL (0.55-1.3)
[2022-10-10] MEDS: ENOXAPARIN NA (PORCINE) 40 MG/0.4 ML DISP.SYRIN SQ SCH (09:25)
[2022-10-10] MEDS: BUPRENORPHINE/NALOXONE 8 MG/2 MG FILM PACKET SL SCH ×2 (09:25→22:39)
[2022-10-10] MEDS: LORATADINE 10 MG TABLET PO SCH (09:26)
[2022-10-10] MEDS: PANTOPRAZOLE 40 MG TABLET PO SCH (09:26)
[2022-10-10] MEDS: BUSPIRONE HCL 10 MG, BUSPIRONE HCL 5 MG PO SCH ×2 (09:26→22:39)
[2022-10-10] MEDS: PARoxetine HCL 20 MG TABLET PO SCH (09:26)
[2022-10-10] MEDS: MONTELUKAST NA 10 MG TABLET PO SCH (22:39)
[2022-10-11] MEDS: ALBUTEROL SO4 2.5/IPRATROPIUM 0.5 INH SOL 3 ML VIAL.NEB. NEB SCH ×2 (07:50→11:43)
[2022-10-11 08:58] LABS: HEMATOCRIT 37.3 % (32.4-45.2); HEMOGLOBIN 11.8 GM/dL (10.7-15.3); MCH 25.3 pg (25.7-33.7); MCHC 31.5 g/dl (32.0-36.0); MEAN CELL VOLUME 80.4 fl (80-96); MEAN PLT VOLUME 7.5 fl (7.5-11.1); PLATELET COUNT 384 10^3/uL (134-434); RBC 4.64 M/mm3 (3.60-5.2); WHITE BLOOD COUNT 20.5 K/mm3 (4.0-10.0)
[2022-10-11] MEDS: BUSPIRONE HCL 10 MG, BUSPIRONE HCL 5 MG PO SCH (09:27)
[2022-10-11] MEDS: LORATADINE 10 MG TABLET PO SCH (09:28)
[2022-10-11] MEDS: PARoxetine HCL 20 MG TABLET PO SCH (09:28)
[2022-10-11] MEDS: PANTOPRAZOLE 40 MG TABLET PO SCH (09:28)
[2022-10-11] MEDS: BUDESONIDE/FORMETEROL FUMARATE 160/4.5 mcg INHALER IH SCH (09:29)
[2022-10-11] MEDS: ENOXAPARIN NA (PORCINE) 40 MG/0.4 ML DISP.SYRIN SQ SCH (09:32)
[2022-10-11] MEDS: BUPRENORPHINE/NALOXONE 8 MG/2 MG FILM PACKET SL SCH (09:41)
[2022-10-11] MEDS ORDERED: predniSONE 20 MG TABLET (UD) PO SCH (10:00)
[2022-10-11 10:14] LABS: POTASSIUM 4.2 mmol/L (3.5-5.1)
[2022-10-11 10:16] LABS: CALCIUM 9.1 mg/dL (8.5-10.1)
[2022-10-11 10:17] LABS: BLOOD UREA NITROGEN 13.1 mg/dL (7-18)
[2022-10-11 10:20] LABS: CREATININE 0.7 mg/dL (0.55-1.3)
[2022-10-11] MEDS ORDERED: AZITHROMYCIN IVPB 500 MG/250 ML BAG IVPB SCH (11:30)
[2022-10-11 13:42] VITALS: BP 103/57
[2022-10-11 15:28] VITALS: PULSE 64; TEMP 98.6
== END 2022-10-11 15:41 | disposition home or self-care (01) | DRG 141 ==
LOC: JER 15:48 → JERBED 18:34 → J5S 22:41 → OBSVTOIN 10-09 09:47
PROVIDERS: ADMIT Internal Medicine; ATTEND Internal Medicine
DX: J45.901 Unspecified asthma with (acute) exacerbation (principal); M06.9 Rheumatoid arthritis, unspecified; F41.8 Other specified anxiety disorders; F11.20 Opioid dependence, uncomplicated; F12.90 Cannabis use, unspecified, uncomplicated; L68.0 Hirsutism; E87.6 Hypokalemia; G47.00 Insomnia, unspecified; R09.02 Hypoxemia; F39 Unspecified mood [affective] disorder; I10 Essential (primary) hypertension; E78.5 Hyperlipidemia, unspecified; D72.829 Elevated white blood cell count, unspecified
CPT/HCPCS: 0241U-QW; 36415; 71045-TC-FY; 71250-TC; 80048; 80053; 82803; 83735; 84100; 84484; 85025; 85027; 85610; 85730; 93005; 93010; 94150; 94640; 94761; 99285-25; G0378

== ENCOUNTER 2022-12-09 14:17 | Inpatient (IN) | payer OTHER ==
[2022-12-09 14:59] VITALS: BMI 31.7
[2022-12-09] MEDS ORDERED: ALBUTEROL SO4 2.5/IPRATROPIUM 0.5 INH SOL 3 ML VIAL.NEB. NEB ONE ×2 (15:00→15:20)
[2022-12-09 15:35] LABS: VENOUS BASE EXCESS 1.1 mmol/L (-2-2); VENOUS O2 SATURATION 68.5 % (70-80); VENOUS PCO2 50.4 mmHg (38-52); VENOUS PH 7.352 (7.310-7.410)
[2022-12-09 15:39] LABS: BASO % 0.5 % (0-2.0); EOS % 1.8 % (0-4.5); HEMATOCRIT 32.7 % (32.4-45.2); HEMOGLOBIN 10.7 GM/dL (10.7-15.3); LYMPH % 8.8 % (8-40); MCH 25.5 pg (25.7-33.7); MCHC 32.8 g/dl (32.0-36.0); MEAN CELL VOLUME 77.6 fl (80-96); MEAN PLT VOLUME 6.7 fl (7.5-11.1); MONO % 4.6 % (3.8-10.2); NEUT % 84.3 % (42.8-82.8); PLATELET COUNT 440 10^3/uL (134-434); RBC 4.21 M/mm3 (3.60-5.2); RDW 14.9 % (11.6-15.6); WHITE BLOOD COUNT 7.3 K/mm3 (4.0-10.0)
[2022-12-09 15:46] LABS: INR 1.06 (0.83-1.09); PROTHROMBIN TIME (PATIENT) 12.3 SEC (9.7-13.0)
[2022-12-09 15:49] LABS: ACTIVATED PTT 36.1 SECONDS (25.2-36.5)
[2022-12-09 15:57] LABS: POTASSIUM 3.5 mmol/L (3.5-5.1)
[2022-12-09 15:59] LABS: CALCIUM 8.4 mg/dL (8.5-10.1)
[2022-12-09 16:00] LABS: ALBUMIN 2.9 g/dl (3.4-5.0); BLOOD UREA NITROGEN 8.2 mg/dL (7-18); MAGNESIUM 1.5 mg/dL (1.8-2.4)
[2022-12-09 16:03] LABS: CREATININE 0.8 mg/dL (0.55-1.3); PHOSPHOROUS 2.8 mg/dL (2.5-4.9)
[2022-12-09 16:04] LABS: BILIRUBIN,TOTAL 0.2 mg/dL (0.2-1); TOT PROT 6.4 g/dl (6.4-8.2)
[2022-12-09] MEDS ORDERED: MAGNESIUM SULF 50% (8.12 MEQ/2 ML-1 GM VIAL) IVPB ONE (16:11)
[2022-12-09] MEDS ORDERED: MAGNESIUM SULFATE IN WATER 2 GM/50 ML IVPB IVPB ONE (16:20)
[2022-12-09] MEDS ORDERED: methylPREDNISolone NA SUCC 125 MG/2 ML VIAL IVPUSH ONE (18:06)
[2022-12-09] MEDS ORDERED: methylPREDNISolone NA SUCC 40 MG/1 ML VIAL IVPUSH SCH (18:30)
[2022-12-09] MEDS ORDERED: methylPREDNISolone NA SUCC 125 MG/2 ML VIAL ONE (18:39)
[2022-12-09] MEDS ORDERED: AZITHROMYCIN IVPB 500 MG/250 ML BAG IVPB ONE ×2 (19:30→19:36)
[2022-12-09] MEDS ORDERED: BUPRENORPHINE/NALOXONE 8 MG/2 MG FILM PACKET ONE (21:36)
[2022-12-09] MEDS ORDERED: busPIRone HCL 5 MG TABLET ONE (21:36)
[2022-12-09] MEDS ORDERED: MONTELUKAST NA 10 MG TABLET ONE (21:36)
[2022-12-09] MEDS ORDERED: QUEtiapine FUMARATE 100 MG TABLET (FP) ONE (21:37)
[2022-12-09] MEDS: BUDESONIDE/FORMETEROL FUMARATE 160/4.5 mcg INHALER IH SCH (21:43)
[2022-12-09] MEDS: BUPRENORPHINE/NALOXONE 8 MG/2 MG FILM PACKET SL SCH (21:43)
[2022-12-09] MEDS: MONTELUKAST NA 10 MG TABLET PO SCH (21:43)
[2022-12-09] MEDS: methylPREDNISolone NA SUCC 40 MG/1 ML VIAL IVPUSH SCH (23:57)
[2022-12-10] MEDS: methylPREDNISolone NA SUCC 40 MG/1 ML VIAL IVPUSH SCH ×4 (05:14→20:52)
[2022-12-10] MEDS: PARoxetine HCL 20 MG TABLET PO SCH (10:38)
[2022-12-10] MEDS: busPIRone HCL 5 MG TABLET PO SCH ×2 (10:38→21:31)
[2022-12-10] MEDS: PANTOPRAZOLE 40 MG TABLET PO SCH (10:39)
[2022-12-10] MEDS: LORATADINE 10 MG TABLET PO SCH (10:39)
[2022-12-10] MEDS: ENOXAPARIN NA (PORCINE) 40 MG/0.4 ML DISP.SYRIN SQ SCH (10:42)
[2022-12-10] MEDS: BUPRENORPHINE/NALOXONE 8 MG/2 MG FILM PACKET SL SCH ×2 (10:42→21:31)
[2022-12-10] MEDS: BUDESONIDE/FORMETEROL FUMARATE 160/4.5 mcg INHALER IH SCH ×2 (10:43→21:32)
[2022-12-10] MEDS: ALBUTEROL SO4 2.5/IPRATROPIUM 0.5 INH SOL 3 ML VIAL.NEB. NEB PRN ×2 (11:24→19:41)
[2022-12-10] MEDS: AZITHROMYCIN IVPB 250 MG in DEXTROSE 5%-WATER - 250 ML IVPB SCH (17:31)
[2022-12-10] MEDS: MONTELUKAST NA 10 MG TABLET PO SCH (21:31)
[2022-12-11] MEDS: methylPREDNISolone NA SUCC 40 MG/1 ML VIAL IVPUSH SCH (02:16)
[2022-12-11] MEDS ORDERED: methylPREDNISolone NA SUCC 40 MG/1 ML VIAL IVPUSH SCH (07:45)
[2022-12-11 09:17] LABS: HEMATOCRIT 32.8 % (32.4-45.2); HEMOGLOBIN 10.4 GM/dL (10.7-15.3); MCH 25.6 pg (25.7-33.7); MCHC 31.9 g/dl (32.0-36.0); MEAN CELL VOLUME 80.5 fl (80-96); MEAN PLT VOLUME 7.4 fl (7.5-11.1); PLATELET COUNT 469 10^3/uL (134-434); RBC 4.07 M/mm3 (3.60-5.2); RDW 15.1 % (11.6-15.6); WHITE BLOOD COUNT 16.1 K/mm3 (4.0-10.0)
[2022-12-11] MEDS: BUPRENORPHINE/NALOXONE 8 MG/2 MG FILM PACKET SL SCH ×2 (09:33→21:23)
[2022-12-11] MEDS: PANTOPRAZOLE 40 MG TABLET PO SCH (09:34)
[2022-12-11] MEDS: busPIRone HCL 5 MG TABLET PO SCH ×2 (09:34→21:23)
[2022-12-11] MEDS: ENOXAPARIN NA (PORCINE) 40 MG/0.4 ML DISP.SYRIN SQ SCH (09:34)
[2022-12-11] MEDS: PARoxetine HCL 20 MG TABLET PO SCH (09:34)
[2022-12-11] MEDS: LORATADINE 10 MG TABLET PO SCH (09:34)
[2022-12-11] MEDS: BUDESONIDE/FORMETEROL FUMARATE 160/4.5 mcg INHALER IH SCH ×2 (09:34→21:24)
[2022-12-11 09:43] LABS: POTASSIUM 4.9 mmol/L (3.5-5.1)
[2022-12-11 09:50] LABS: BLOOD UREA NITROGEN 12.6 mg/dL (7-18); CALCIUM 8.6 mg/dL (8.5-10.1); MAGNESIUM 1.9 mg/dL (1.8-2.4)
[2022-12-11 09:52] LABS: CREATININE 0.7 mg/dL (0.55-1.3)
[2022-12-11 09:53] LABS: BILIRUBIN,TOTAL 0.2 mg/dL (0.2-1); TOT PROT 6.7 g/dl (6.4-8.2)
[2022-12-11] MEDS: AZITHROMYCIN IVPB 250 MG in DEXTROSE 5%-WATER - 250 ML IVPB SCH (11:18)
[2022-12-11] MEDS: ALBUTEROL SO4 2.5/IPRATROPIUM 0.5 INH SOL 3 ML VIAL.NEB. NEB PRN (18:50)
[2022-12-11] MEDS: MONTELUKAST NA 10 MG TABLET PO SCH (21:24)
[2022-12-12] MEDS: ALBUTEROL SO4 2.5/IPRATROPIUM 0.5 INH SOL 3 ML VIAL.NEB. NEB PRN (06:10)
[2022-12-12] MEDS: busPIRone HCL 5 MG TABLET PO SCH ×2 (09:44→21:08)
[2022-12-12] MEDS: AZITHROMYCIN IVPB 250 MG in DEXTROSE 5%-WATER - 250 ML IVPB SCH (09:44)
[2022-12-12] MEDS: LORATADINE 10 MG TABLET PO SCH (09:45)
[2022-12-12] MEDS: PARoxetine HCL 20 MG TABLET PO SCH (09:45)
[2022-12-12] MEDS: PANTOPRAZOLE 40 MG TABLET PO SCH (09:45)
[2022-12-12] MEDS: ENOXAPARIN NA (PORCINE) 40 MG/0.4 ML DISP.SYRIN SQ SCH (09:45)
[2022-12-12] MEDS: BUPRENORPHINE/NALOXONE 8 MG/2 MG FILM PACKET SL SCH ×2 (09:45→21:07)
[2022-12-12] MEDS: BUDESONIDE/FORMETEROL FUMARATE 160/4.5 mcg INHALER IH SCH ×2 (09:46→21:09)
[2022-12-12] MEDS ORDERED: methylPREDNISolone NA SUCC 40 MG/1 ML VIAL IVPUSH SCH (10:00)
[2022-12-12] MEDS ORDERED: THEOPHYLLINE ANHYDROUS 100 MG CAP.ER.24H PO SCH (10:00)
[2022-12-12 10:24] LABS: BASO % 0.2 % (0-2.0); HEMATOCRIT 32.5 % (32.4-45.2); HEMOGLOBIN 10.3 GM/dL (10.7-15.3); LYMPH % 23.5 % (8-40); MCH 25.7 pg (25.7-33.7); MCHC 31.8 g/dl (32.0-36.0); MEAN CELL VOLUME 80.7 fl (80-96); MEAN PLT VOLUME 7.3 fl (7.5-11.1); MONO % 5.5 % (3.8-10.2); NEUT % 70.8 % (42.8-82.8); PLATELET COUNT 452 10^3/uL (134-434); RBC 4.03 M/mm3 (3.60-5.2); RDW 14.9 % (11.6-15.6); WHITE BLOOD COUNT 11.5 K/mm3 (4.0-10.0)
[2022-12-12 10:48] LABS: CALCIUM 8.7 mg/dL (8.5-10.1)
[2022-12-12 10:49] LABS: BLOOD UREA NITROGEN 13.3 mg/dL (7-18)
[2022-12-12 10:50] LABS: CREATININE 0.7 mg/dL (0.55-1.3)
[2022-12-12 10:51] LABS: BILIRUBIN,TOTAL 0.1 mg/dL (0.2-1); TOT PROT 6.6 g/dl (6.4-8.2)
[2022-12-12] MEDS: methylPREDNISolone NA SUCC 40 MG/1 ML VIAL IVPUSH SCH ×2 (13:27→21:07)
[2022-12-12] MEDS: ALBUTEROL SO4 2.5/IPRATROPIUM 0.5 INH SOL 3 ML VIAL.NEB. NEB SCH ×2 (16:06→19:31)
[2022-12-12] MEDS: THEOPHYLLINE ANHYDROUS 100 MG CAP.ER.24H PO SCH (16:48)
[2022-12-12] MEDS: MONTELUKAST NA 10 MG TABLET PO SCH (21:09)
[2022-12-13] MEDS: ALBUTEROL SO4 0.083% IH SOL 2.5 MG/3 ML VIAL.NEB. NEB PRN ×3 (00:05→22:43)
[2022-12-13] MEDS: methylPREDNISolone NA SUCC 40 MG/1 ML VIAL IVPUSH SCH ×3 (05:18→21:31)
[2022-12-13] MEDS: ALBUTEROL SO4 2.5/IPRATROPIUM 0.5 INH SOL 3 ML VIAL.NEB. NEB SCH ×4 (07:30→20:52)
[2022-12-13 09:49] LABS: HEMATOCRIT 32.6 % (32.4-45.2); HEMOGLOBIN 10.3 GM/dL (10.7-15.3); LYMPH % 8.6 % (8-40); MCH 25.9 pg (25.7-33.7); MCHC 31.7 g/dl (32.0-36.0); MEAN CELL VOLUME 81.8 fl (80-96); MEAN PLT VOLUME 7.3 fl (7.5-11.1); NEUT % 89.4 % (42.8-82.8); PLATELET COUNT 461 10^3/uL (134-434); RBC 3.98 M/mm3 (3.60-5.2); RDW 14.9 % (11.6-15.6); WHITE BLOOD COUNT 10.3 K/mm3 (4.0-10.0)
[2022-12-13 10:11] LABS: POTASSIUM 4.1 mmol/L (3.5-5.1)
[2022-12-13 10:17] LABS: ALBUMIN 3.3 g/dl (3.4-5.0); BLOOD UREA NITROGEN 11.6 mg/dL (7-18); MAGNESIUM 2.1 mg/dL (1.8-2.4)
[2022-12-13 10:19] LABS: CREATININE 0.9 mg/dL (0.55-1.3)
[2022-12-13 10:21] LABS: BILIRUBIN,TOTAL 0.2 mg/dL (0.2-1)
[2022-12-13] MEDS: BUPRENORPHINE/NALOXONE 8 MG/2 MG FILM PACKET SL SCH ×2 (10:58→21:32)
[2022-12-13] MEDS: LORATADINE 10 MG TABLET PO SCH (10:59)
[2022-12-13] MEDS: AZITHROMYCIN IVPB 250 MG in DEXTROSE 5%-WATER - 250 ML IVPB SCH (10:59)
[2022-12-13] MEDS: PARoxetine HCL 20 MG TABLET PO SCH (10:59)
[2022-12-13] MEDS: ENOXAPARIN NA (PORCINE) 40 MG/0.4 ML DISP.SYRIN SQ SCH (10:59)
[2022-12-13] MEDS: busPIRone HCL 5 MG TABLET PO SCH ×2 (10:59→21:31)
[2022-12-13] MEDS: PANTOPRAZOLE 40 MG TABLET PO SCH (10:59)
[2022-12-13] MEDS: BUDESONIDE/FORMETEROL FUMARATE 160/4.5 mcg INHALER IH SCH ×2 (12:17→22:24)
[2022-12-13] MEDS: THEOPHYLLINE ANHYDROUS 100 MG CAP.ER.24H PO SCH (12:17)
[2022-12-13] MEDS: MONTELUKAST NA 10 MG TABLET PO SCH (21:31)
[2022-12-14] MEDS: methylPREDNISolone NA SUCC 40 MG/1 ML VIAL IVPUSH SCH ×3 (05:25→21:48)
[2022-12-14] MEDS: ALBUTEROL SO4 2.5/IPRATROPIUM 0.5 INH SOL 3 ML VIAL.NEB. NEB SCH ×4 (08:24→19:55)
[2022-12-14] MEDS: PARoxetine HCL 20 MG TABLET PO SCH (09:13)
[2022-12-14] MEDS: PANTOPRAZOLE 40 MG TABLET PO SCH (09:13)
[2022-12-14] MEDS: LORATADINE 10 MG TABLET PO SCH (09:13)
[2022-12-14] MEDS: ENOXAPARIN NA (PORCINE) 40 MG/0.4 ML DISP.SYRIN SQ SCH (09:14)
[2022-12-14] MEDS: busPIRone HCL 5 MG TABLET PO SCH ×2 (09:14→21:47)
[2022-12-14] MEDS: BUPRENORPHINE/NALOXONE 8 MG/2 MG FILM PACKET SL SCH ×2 (09:14→21:48)
[2022-12-14] MEDS: BUDESONIDE/FORMETEROL FUMARATE 160/4.5 mcg INHALER IH SCH ×2 (09:17→21:48)
[2022-12-14] MEDS: THEOPHYLLINE ANHYDROUS 100 MG CAP.ER.24H PO SCH (09:21)
[2022-12-14 10:47] LABS: BASO % 0.1 % (0-2.0); HEMATOCRIT 33.9 % (32.4-45.2); HEMOGLOBIN 10.6 GM/dL (10.7-15.3); MCH 25.1 pg (25.7-33.7); MCHC 31.5 g/dl (32.0-36.0); MEAN CELL VOLUME 79.9 fl (80-96); MEAN PLT VOLUME 7.6 fl (7.5-11.1); MONO % 2.7 % (3.8-10.2); NEUT % 89.2 % (42.8-82.8); PLATELET COUNT 470 10^3/uL (134-434); RBC 4.23 M/mm3 (3.60-5.2)
[2022-12-14 11:14] LABS: ANISOCYTOSIS 0; HELMET CELLS 0; HOWELL-JOLLY BODIES 0; MACROCYTOSIS 0; OVALOCYTE 0; ROULEAU 0; SICKELED CELLS 0; TARGET CELLS 0; TEAR DROP CELLS 0; TOXIC GRANULATION 0
[2022-12-14 11:34] LABS: ALBUMIN 3.2 g/dl (3.4-5.0); BILIRUBIN,TOTAL 0.1 mg/dL (0.2-1); TOT PROT 6.9 g/dl (6.4-8.2)
[2022-12-14 11:37] LABS: CALCIUM 9.1 mg/dL (8.5-10.1); CREATININE 0.9 mg/dL (0.55-1.3)
[2022-12-14 11:39] LABS: MAGNESIUM 2.1 mg/dL (1.8-2.4)
[2022-12-14 11:55] LABS: POTASSIUM 4.3 mmol/L (3.5-5.1)
[2022-12-14] MEDS: MONTELUKAST NA 10 MG TABLET PO SCH (21:48)
[2022-12-15] MEDS: methylPREDNISolone NA SUCC 40 MG/1 ML VIAL IVPUSH SCH ×3 (05:47→18:20)
[2022-12-15] MEDS: ALBUTEROL SO4 2.5/IPRATROPIUM 0.5 INH SOL 3 ML VIAL.NEB. NEB SCH ×4 (07:42→20:30)
[2022-12-15 09:27] LABS: HEMATOCRIT 33.8 % (32.4-45.2); HEMOGLOBIN 10.7 GM/dL (10.7-15.3); MCH 25.3 pg (25.7-33.7); MCHC 31.8 g/dl (32.0-36.0); MEAN CELL VOLUME 79.3 fl (80-96); MEAN PLT VOLUME 7.4 fl (7.5-11.1); PLATELET COUNT 490 10^3/uL (134-434); RBC 4.26 M/mm3 (3.60-5.2); RDW 14.8 % (11.6-15.6); WHITE BLOOD COUNT 14.3 K/mm3 (4.0-10.0)
[2022-12-15] MEDS: PANTOPRAZOLE 40 MG TABLET PO SCH (09:36)
[2022-12-15] MEDS: busPIRone HCL 5 MG TABLET PO SCH ×2 (09:36→21:41)
[2022-12-15] MEDS: LORATADINE 10 MG TABLET PO SCH (09:37)
[2022-12-15] MEDS: ENOXAPARIN NA (PORCINE) 40 MG/0.4 ML DISP.SYRIN SQ SCH (09:37)
[2022-12-15] MEDS: BUPRENORPHINE/NALOXONE 8 MG/2 MG FILM PACKET SL SCH ×2 (09:37→21:43)
[2022-12-15] MEDS: PARoxetine HCL 20 MG TABLET PO SCH (09:37)
[2022-12-15] MEDS: THEOPHYLLINE ANHYDROUS 100 MG CAP.ER.24H PO SCH (09:37)
[2022-12-15] MEDS: BUDESONIDE/FORMETEROL FUMARATE 160/4.5 mcg INHALER IH SCH ×2 (09:39→21:42)
[2022-12-15 09:42] LABS: POTASSIUM 4.5 mmol/L (3.5-5.1)
[2022-12-15 09:59] LABS: BLOOD UREA NITROGEN 15.6 mg/dL (7-18); CALCIUM 8.9 mg/dL (8.5-10.1)
[2022-12-15 10:01] LABS: ALBUMIN 3.1 g/dl (3.4-5.0); MAGNESIUM 2.2 mg/dL (1.8-2.4)
[2022-12-15 10:02] LABS: BILIRUBIN,TOTAL 0.2 mg/dL (0.2-1)
[2022-12-15 10:04] LABS: CREATININE 0.8 mg/dL (0.55-1.3); TOT PROT 6.8 g/dl (6.4-8.2)
[2022-12-15 10:52] LABS: ANISOCYTOSIS 3+; MACROCYTOSIS 0
[2022-12-15] MEDS: MONTELUKAST NA 10 MG TABLET PO SCH (21:42)
[2022-12-16] MEDS: methylPREDNISolone NA SUCC 40 MG/1 ML VIAL IVPUSH SCH ×4 (00:13→18:24)
[2022-12-16] MEDS: ALBUTEROL SO4 2.5/IPRATROPIUM 0.5 INH SOL 3 ML VIAL.NEB. NEB SCH ×4 (07:10→20:34)
[2022-12-16 08:16] LABS: HEMATOCRIT 34.5 % (32.4-45.2); HEMOGLOBIN 11.1 GM/dL (10.7-15.3); MCH 25.8 pg (25.7-33.7); MCHC 32.3 g/dl (32.0-36.0); MEAN CELL VOLUME 79.8 fl (80-96); MEAN PLT VOLUME 7.4 fl (7.5-11.1); PLATELET COUNT 449 10^3/uL (134-434); RBC 4.32 M/mm3 (3.60-5.2); RDW 14.7 % (11.6-15.6); WHITE BLOOD COUNT 16.1 K/mm3 (4.0-10.0)
[2022-12-16 08:29] LABS: POTASSIUM 4.2 mmol/L (3.5-5.1)
[2022-12-16 08:46] LABS: ALBUMIN 3.2 g/dl (3.4-5.0); BLOOD UREA NITROGEN 17.8 mg/dL (7-18); CALCIUM 8.8 mg/dL (8.5-10.1); MAGNESIUM 2.3 mg/dL (1.8-2.4)
[2022-12-16 08:50] LABS: CREATININE 0.8 mg/dL (0.55-1.3)
[2022-12-16 08:51] LABS: BILIRUBIN,TOTAL 0.2 mg/dL (0.2-1); TOT PROT 6.7 g/dl (6.4-8.2)
[2022-12-16] MEDS: LORATADINE 10 MG TABLET PO SCH (10:16)
[2022-12-16] MEDS: ENOXAPARIN NA (PORCINE) 40 MG/0.4 ML DISP.SYRIN SQ SCH (10:16)
[2022-12-16] MEDS: THEOPHYLLINE ANHYDROUS 100 MG CAP.ER.24H PO SCH (10:17)
[2022-12-16] MEDS: BUPRENORPHINE/NALOXONE 8 MG/2 MG FILM PACKET SL SCH ×2 (10:18→21:52)
[2022-12-16] MEDS: PARoxetine HCL 20 MG TABLET PO SCH (10:18)
[2022-12-16] MEDS: PANTOPRAZOLE 40 MG TABLET PO SCH (10:18)
[2022-12-16] MEDS: busPIRone HCL 5 MG TABLET PO SCH ×2 (10:18→21:52)
[2022-12-16] MEDS: BUDESONIDE/FORMETEROL FUMARATE 160/4.5 mcg INHALER IH SCH ×2 (10:23→21:52)
[2022-12-16] MEDS: MONTELUKAST NA 10 MG TABLET PO SCH (21:52)
[2022-12-17] MEDS: methylPREDNISolone NA SUCC 40 MG/1 ML VIAL IVPUSH SCH ×5 (00:03→23:40)
[2022-12-17] MEDS: ALBUTEROL SO4 2.5/IPRATROPIUM 0.5 INH SOL 3 ML VIAL.NEB. NEB SCH ×4 (07:29→19:31)
[2022-12-17] MEDS: BUPRENORPHINE/NALOXONE 8 MG/2 MG FILM PACKET SL SCH ×4 (09:49→21:03)
[2022-12-17] MEDS: PANTOPRAZOLE 40 MG TABLET PO SCH (09:50)
[2022-12-17] MEDS: THEOPHYLLINE ANHYDROUS 100 MG CAP.ER.24H PO SCH (09:50)
[2022-12-17] MEDS: LORATADINE 10 MG TABLET PO SCH (09:50)
[2022-12-17] MEDS: ENOXAPARIN NA (PORCINE) 40 MG/0.4 ML DISP.SYRIN SQ SCH (09:50)
[2022-12-17] MEDS: PARoxetine HCL 20 MG TABLET PO SCH (09:50)
[2022-12-17] MEDS: busPIRone HCL 5 MG TABLET PO SCH ×2 (09:50→21:02)
[2022-12-17] MEDS: BUDESONIDE/FORMETEROL FUMARATE 160/4.5 mcg INHALER IH SCH ×2 (09:51→21:02)
[2022-12-17 10:22] LABS: HEMATOCRIT 35.2 % (32.4-45.2); MCH 24.9 pg (25.7-33.7); MCHC 31.3 g/dl (32.0-36.0); MEAN CELL VOLUME 79.6 fl (80-96); MEAN PLT VOLUME 7.5 fl (7.5-11.1); PLATELET COUNT 472 10^3/uL (134-434); RBC 4.43 M/mm3 (3.60-5.2); RDW 14.8 % (11.6-15.6); WHITE BLOOD COUNT 17.1 K/mm3 (4.0-10.0)
[2022-12-17 10:39] LABS: POTASSIUM 4.1 mmol/L (3.5-5.1)
[2022-12-17 10:45] LABS: CALCIUM 8.5 mg/dL (8.5-10.1)
[2022-12-17 10:47] LABS: BLOOD UREA NITROGEN 17.6 mg/dL (7-18)
[2022-12-17 10:52] LABS: BILIRUBIN,TOTAL 0.2 mg/dL (0.2-1); TOT PROT 6.5 g/dl (6.4-8.2)
[2022-12-17 15:20] LABS: EPI CELLS 33 /uL (0-25.1); HYALINE CASTS 2 /uL (0-3.1); PH,URINE 5.5 (5.0-8.0); URINE APPEARANCE CLOUDY; URINE BACTERIA 70 /uL (0-1359); URINE BILIRUBIN NEGATIVE (NEGATIVE); URINE COLOR YELLOW; URINE GLUCOSE (UA) NEGATIVE (NEGATIVE); URINE KETONE TRACE (NEGATIVE); URINE LEUK ESTERASE 3+ (NEGATIVE); URINE NITRITE NEGATIVE (NEGATIVE); URINE PROTEIN TRACE (NEGATIVE); URINE RBC 43 /uL (0-23.9); URINE UROBILINOGEN 0.2 mg/dL (0.2-1.0); URINE WBC 2107 /uL (0-25.8)
[2022-12-17] MEDS: MONTELUKAST NA 10 MG TABLET PO SCH (21:02)
[2022-12-18] MEDS: methylPREDNISolone NA SUCC 40 MG/1 ML VIAL IVPUSH SCH ×3 (06:13→17:07)
[2022-12-18] MEDS: ALBUTEROL SO4 2.5/IPRATROPIUM 0.5 INH SOL 3 ML VIAL.NEB. NEB SCH ×4 (07:35→20:24)
[2022-12-18 09:38] LABS: HEMATOCRIT 34.1 % (32.4-45.2); HEMOGLOBIN 11.2 GM/dL (10.7-15.3); MCH 25.3 pg (25.7-33.7); MCHC 32.9 g/dl (32.0-36.0); MEAN CELL VOLUME 76.9 fl (80-96); MEAN PLT VOLUME 7.5 fl (7.5-11.1); PLATELET COUNT 423 10^3/uL (134-434); RBC 4.44 M/mm3 (3.60-5.2); RDW 14.7 % (11.6-15.6); WHITE BLOOD COUNT 19.9 K/mm3 (4.0-10.0)
[2022-12-18 10:05] LABS: BLOOD UREA NITROGEN 17.3 mg/dL (7-18); CALCIUM 8.4 mg/dL (8.5-10.1)
[2022-12-18 10:06] LABS: ALBUMIN 2.9 g/dl (3.4-5.0); MAGNESIUM 2.1 mg/dL (1.8-2.4)
[2022-12-18 10:08] LABS: CREATININE 0.9 mg/dL (0.55-1.3)
[2022-12-18 10:09] LABS: BILIRUBIN,TOTAL 0.2 mg/dL (0.2-1); TOT PROT 6.2 g/dl (6.4-8.2)
[2022-12-18] MEDS: busPIRone HCL 5 MG TABLET PO SCH ×2 (10:16→21:36)
[2022-12-18] MEDS: PARoxetine HCL 20 MG TABLET PO SCH (10:18)
[2022-12-18] MEDS: ENOXAPARIN NA (PORCINE) 40 MG/0.4 ML DISP.SYRIN SQ SCH (10:18)
[2022-12-18] MEDS: LORATADINE 10 MG TABLET PO SCH (10:18)
[2022-12-18] MEDS: PANTOPRAZOLE 40 MG TABLET PO SCH (10:18)
[2022-12-18] MEDS: THEOPHYLLINE ANHYDROUS 100 MG CAP.ER.24H PO SCH (10:19)
[2022-12-18] MEDS: BUPRENORPHINE/NALOXONE 8 MG/2 MG FILM PACKET SL SCH ×2 (10:19→21:54)
[2022-12-18] MEDS: BUDESONIDE/FORMETEROL FUMARATE 160/4.5 mcg INHALER IH SCH ×2 (10:21→21:55)
[2022-12-18 10:27] LABS: ANISOCYTOSIS 2+
[2022-12-18] MEDS: NITROFURANTOIN MONOHYD/M-CRYST 100 MG CAPSULE PO SCH ×2 (13:35→21:37)
[2022-12-18] MEDS: MONTELUKAST NA 10 MG TABLET PO SCH (21:37)
[2022-12-18] MEDS: ALBUTEROL SO4 0.083% IH SOL 2.5 MG/3 ML VIAL.NEB. NEB PRN (22:45)
[2022-12-19] MEDS: methylPREDNISolone NA SUCC 40 MG/1 ML VIAL IVPUSH SCH ×3 (01:06→18:15)
[2022-12-19] MEDS: ALBUTEROL SO4 2.5/IPRATROPIUM 0.5 INH SOL 3 ML VIAL.NEB. NEB SCH ×4 (07:40→20:05)
[2022-12-19] MEDS: LORATADINE 10 MG TABLET PO SCH (09:56)
[2022-12-19] MEDS: ENOXAPARIN NA (PORCINE) 40 MG/0.4 ML DISP.SYRIN SQ SCH (09:56)
[2022-12-19] MEDS: busPIRone HCL 5 MG TABLET PO SCH ×2 (09:56→21:05)
[2022-12-19] MEDS: PARoxetine HCL 20 MG TABLET PO SCH (09:56)
[2022-12-19] MEDS: PANTOPRAZOLE 40 MG TABLET PO SCH (09:56)
[2022-12-19] MEDS: NITROFURANTOIN MONOHYD/M-CRYST 100 MG CAPSULE PO SCH ×2 (09:57→21:05)
[2022-12-19] MEDS: BUPRENORPHINE/NALOXONE 8 MG/2 MG FILM PACKET SL SCH ×2 (09:57→21:05)
[2022-12-19] MEDS: THEOPHYLLINE ANHYDROUS 100 MG CAP.ER.24H PO SCH (09:57)
[2022-12-19] MEDS: BUDESONIDE/FORMETEROL FUMARATE 160/4.5 mcg INHALER IH SCH ×2 (09:58→21:07)
[2022-12-19] MEDS: MONTELUKAST NA 10 MG TABLET PO SCH (21:05)
[2022-12-19] MEDS: NYSTATIN 500,000 UNITS/5 ML SUSPENSION PO SCH (23:54)
[2022-12-20] MEDS: methylPREDNISolone NA SUCC 40 MG/1 ML VIAL IVPUSH SCH ×3 (01:48→21:02)
[2022-12-20] MEDS: NYSTATIN 500,000 UNITS/5 ML SUSPENSION PO SCH ×4 (05:32→23:45)
[2022-12-20] MEDS: ALBUTEROL SO4 2.5/IPRATROPIUM 0.5 INH SOL 3 ML VIAL.NEB. NEB SCH ×4 (07:35→20:05)
[2022-12-20 10:01] LABS: HEMATOCRIT 34.7 % (32.4-45.2); HEMOGLOBIN 10.7 GM/dL (10.7-15.3); MCH 24.3 pg (25.7-33.7); MCHC 30.7 g/dl (32.0-36.0); MEAN PLT VOLUME 7.4 fl (7.5-11.1); PLATELET COUNT 411 10^3/uL (134-434); RBC 4.39 M/mm3 (3.60-5.2); RDW 15.1 % (11.6-15.6); WHITE BLOOD COUNT 20.4 K/mm3 (4.0-10.0)
[2022-12-20] MEDS: BUPRENORPHINE/NALOXONE 8 MG/2 MG FILM PACKET SL SCH ×2 (10:10→21:02)
[2022-12-20] MEDS: ENOXAPARIN NA (PORCINE) 40 MG/0.4 ML DISP.SYRIN SQ SCH (10:10)
[2022-12-20 10:11] LABS: POTASSIUM 4.6 mmol/L (3.5-5.1)
[2022-12-20] MEDS: LORATADINE 10 MG TABLET PO SCH (10:11)
[2022-12-20] MEDS: PANTOPRAZOLE 40 MG TABLET PO SCH (10:11)
[2022-12-20] MEDS: PARoxetine HCL 20 MG TABLET PO SCH (10:11)
[2022-12-20] MEDS: busPIRone HCL 5 MG TABLET PO SCH ×2 (10:11→21:01)
[2022-12-20] MEDS: THEOPHYLLINE ANHYDROUS 100 MG CAP.ER.24H PO SCH (10:11)
[2022-12-20] MEDS: NITROFURANTOIN MONOHYD/M-CRYST 100 MG CAPSULE PO SCH ×2 (10:12→21:02)
[2022-12-20] MEDS: BUDESONIDE/FORMETEROL FUMARATE 160/4.5 mcg INHALER IH SCH ×2 (10:13→21:02)
[2022-12-20 10:15] LABS: ALBUMIN 2.9 g/dl (3.4-5.0); BLOOD UREA NITROGEN 15.3 mg/dL (7-18); MAGNESIUM 2.2 mg/dL (1.8-2.4)
[2022-12-20 10:18] LABS: CALCIUM 8.8 mg/dL (8.5-10.1); CREATININE 0.7 mg/dL (0.55-1.3)
[2022-12-20 10:27] LABS: BILIRUBIN,TOTAL 0.2 mg/dL (0.2-1)
[2022-12-20 11:57] LABS: ANISOCYTOSIS 1+; MACROCYTOSIS 0
[2022-12-20] MEDS: MONTELUKAST NA 10 MG TABLET PO SCH (21:02)
[2022-12-21] MEDS: NYSTATIN 500,000 UNITS/5 ML SUSPENSION PO SCH ×4 (06:08→23:51)
[2022-12-21] MEDS: ALBUTEROL SO4 2.5/IPRATROPIUM 0.5 INH SOL 3 ML VIAL.NEB. NEB SCH ×4 (07:51→20:05)
[2022-12-21] MEDS: PARoxetine HCL 20 MG TABLET PO SCH (09:59)
[2022-12-21] MEDS: ENOXAPARIN NA (PORCINE) 40 MG/0.4 ML DISP.SYRIN SQ SCH (09:59)
[2022-12-21] MEDS: LORATADINE 10 MG TABLET PO SCH (09:59)
[2022-12-21] MEDS: methylPREDNISolone NA SUCC 40 MG/1 ML VIAL IVPUSH SCH (09:59)
[2022-12-21] MEDS: busPIRone HCL 5 MG TABLET PO SCH ×2 (09:59→21:28)
[2022-12-21] MEDS: NITROFURANTOIN MONOHYD/M-CRYST 100 MG CAPSULE PO SCH ×2 (10:00→21:29)
[2022-12-21] MEDS: PANTOPRAZOLE 40 MG TABLET PO SCH (10:00)
[2022-12-21] MEDS: THEOPHYLLINE ANHYDROUS 100 MG CAP.ER.24H PO SCH (10:00)
[2022-12-21] MEDS: BUDESONIDE/FORMETEROL FUMARATE 160/4.5 mcg INHALER IH SCH ×2 (10:01→21:29)
[2022-12-21] MEDS: BUPRENORPHINE/NALOXONE 8 MG/2 MG FILM PACKET SL SCH ×2 (10:01→21:28)
[2022-12-21] MEDS: MONTELUKAST NA 10 MG TABLET PO SCH (21:28)
[2022-12-22] MEDS: NYSTATIN 500,000 UNITS/5 ML SUSPENSION PO SCH ×3 (06:01→17:29)
[2022-12-22] MEDS: ALBUTEROL SO4 2.5/IPRATROPIUM 0.5 INH SOL 3 ML VIAL.NEB. NEB SCH ×4 (07:30→20:42)
[2022-12-22] MEDS: PANTOPRAZOLE 40 MG TABLET PO SCH (09:18)
[2022-12-22] MEDS: PARoxetine HCL 20 MG TABLET PO SCH (09:18)
[2022-12-22] MEDS: BUPRENORPHINE/NALOXONE 8 MG/2 MG FILM PACKET SL SCH ×2 (09:18→22:27)
[2022-12-22] MEDS: ENOXAPARIN NA (PORCINE) 40 MG/0.4 ML DISP.SYRIN SQ SCH (09:18)
[2022-12-22] MEDS: busPIRone HCL 5 MG TABLET PO SCH ×2 (09:18→22:26)
[2022-12-22] MEDS: LORATADINE 10 MG TABLET PO SCH (09:18)
[2022-12-22] MEDS: methylPREDNISolone NA SUCC 40 MG/1 ML VIAL IVPUSH SCH (09:19)
[2022-12-22] MEDS: NITROFURANTOIN MONOHYD/M-CRYST 100 MG CAPSULE PO SCH ×2 (09:19→22:26)
[2022-12-22] MEDS: THEOPHYLLINE ANHYDROUS 100 MG CAP.ER.24H PO SCH (09:20)
[2022-12-22] MEDS: BUDESONIDE/FORMETEROL FUMARATE 160/4.5 mcg INHALER IH SCH ×2 (09:20→22:27)
[2022-12-22 10:52] LABS: HEMATOCRIT 38.4 % (32.4-45.2); HEMOGLOBIN 11.8 GM/dL (10.7-15.3); MCHC 30.7 g/dl (32.0-36.0); MEAN CELL VOLUME 78.1 fl (80-96); MEAN PLT VOLUME 7.5 fl (7.5-11.1); PLATELET COUNT 359 10^3/uL (134-434); RBC 4.91 M/mm3 (3.60-5.2); RDW 15.2 % (11.6-15.6); WHITE BLOOD COUNT 17.2 K/mm3 (4.0-10.0)
[2022-12-22 11:11] LABS: POTASSIUM 3.8 mmol/L (3.5-5.1)
[2022-12-22 11:19] LABS: BLOOD UREA NITROGEN 15.1 mg/dL (7-18); CALCIUM 8.5 mg/dL (8.5-10.1)
[2022-12-22 11:22] LABS: CREATININE 0.8 mg/dL (0.55-1.3)
[2022-12-22 11:23] LABS: BILIRUBIN,TOTAL 0.3 mg/dL (0.2-1)
[2022-12-22 11:24] LABS: TOT PROT 6.1 g/dl (6.4-8.2)
[2022-12-22 11:43] LABS: ANISOCYTOSIS 3+; MACROCYTOSIS 0
[2022-12-22] MEDS: MONTELUKAST NA 10 MG TABLET PO SCH (22:26)
[2022-12-23] MEDS: NYSTATIN 500,000 UNITS/5 ML SUSPENSION PO SCH ×3 (00:39→11:32)
[2022-12-23] MEDS: ALBUTEROL SO4 2.5/IPRATROPIUM 0.5 INH SOL 3 ML VIAL.NEB. NEB SCH ×2 (07:30→11:20)
[2022-12-23] MEDS: methylPREDNISolone NA SUCC 40 MG/1 ML VIAL IVPUSH SCH (09:51)
[2022-12-23] MEDS: ENOXAPARIN NA (PORCINE) 40 MG/0.4 ML DISP.SYRIN SQ SCH (10:41)
[2022-12-23] MEDS: NITROFURANTOIN MONOHYD/M-CRYST 100 MG CAPSULE PO SCH (10:42)
[2022-12-23] MEDS: PARoxetine HCL 20 MG TABLET PO SCH (10:42)
[2022-12-23] MEDS: PANTOPRAZOLE 40 MG TABLET PO SCH (10:42)
[2022-12-23] MEDS: THEOPHYLLINE ANHYDROUS 100 MG CAP.ER.24H PO SCH (10:42)
[2022-12-23] MEDS: busPIRone HCL 5 MG TABLET PO SCH (10:42)
[2022-12-23] MEDS: LORATADINE 10 MG TABLET PO SCH (10:42)
[2022-12-23] MEDS: BUPRENORPHINE/NALOXONE 8 MG/2 MG FILM PACKET SL SCH (10:43)
[2022-12-23] MEDS: BUDESONIDE/FORMETEROL FUMARATE 160/4.5 mcg INHALER IH SCH (10:43)
[2022-12-23 11:05] VITALS: BP 132/77; PULSE 95; RESP 18; TEMP 98.8
== END 2022-12-23 13:57 | disposition home or self-care (01) | DRG 141 ==
LOC: JER 14:17 → JERBED 17:35 → J8W 22:21 → OBSVTOIN 12-10 10:16
PROVIDERS: ADMIT Internal Medicine; ATTEND Nurse Practitioner Acute Care
DX: J45.41 Moderate persistent asthma with (acute) exacerbation (principal); F11.20 Opioid dependence, uncomplicated; E66.9 Obesity, unspecified; M06.9 Rheumatoid arthritis, unspecified; Z68.31 Body mass index [BMI] 31.0-31.9, adult; F41.9 Anxiety disorder, unspecified; F32.A Depression, unspecified; N39.0 Urinary tract infection, site not specified; D72.829 Elevated white blood cell count, unspecified; T65.91XA Toxic effect of unspecified substance, accidental (unintentional), initial encounter; Y92.89 Other specified places as the place of occurrence of the external cause
CPT/HCPCS: 0241U-QW; 36415; 71045-TC-FY; 80053; 81003; 82803; 82962; 83735; 84100; 84484; 85025; 85610; 85730; 87077; 87086; 93005; 93010; 94010; 94150; 94640; 94667; 94761; 99285-25; G0378

== ENCOUNTER 2023-02-04 22:07 | Observation (INO) | payer OTHER ==
[2023-02-04] MEDS ORDERED: DEXAMETHASONE SOD PHOSPHATE 10 MG/1 ML VIAL IM ONE (22:36)
[2023-02-04] MEDS ORDERED: ALBUTEROL SO4 2.5/IPRATROPIUM 0.5 INH SOL 3 ML VIAL.NEB. NEB ONE (22:37)
[2023-02-04] MEDS ORDERED: methylPREDNISolone NA SUCC 125 MG/2 ML VIAL IVPUSH ONE (22:38)
[2023-02-04] MEDS: ALBUTEROL SO4 2.5/IPRATROPIUM 0.5 INH SOL 3 ML VIAL.NEB. NEB SCH ×2 (22:40→23:02)
[2023-02-04] MEDS ORDERED: methylPREDNISolone NA SUCC 125 MG/2 ML VIAL ONE (22:54)
[2023-02-04 23:27] LABS: BASO % 0.5 % (0-2.0); EOS % 0.7 % (0-4.5); HEMATOCRIT 33.1 % (32.4-45.2); HEMOGLOBIN 10.5 GM/dL (10.7-15.3); LYMPH % 14.1 % (8-40); MCH 24.9 pg (25.7-33.7); MCHC 31.8 g/dl (32.0-36.0); MEAN CELL VOLUME 78.3 fl (80-96); MEAN PLT VOLUME 6.7 fl (7.5-11.1); MONO % 8.2 % (3.8-10.2); NEUT % 76.5 % (42.8-82.8); PLATELET COUNT 389 10^3/uL (134-434); RBC 4.23 M/mm3 (3.60-5.2); RDW 18.1 % (11.6-15.6); WHITE BLOOD COUNT 9.8 K/mm3 (4.0-10.0)
[2023-02-04 23:36] LABS: POTASSIUM 3.5 mmol/L (3.5-5.1)
[2023-02-04 23:39] LABS: ALBUMIN 3.3 g/dl (3.4-5.0); BLOOD UREA NITROGEN 11.7 mg/dL (7-18); CALCIUM 8.2 mg/dL (8.5-10.1)
[2023-02-04 23:42] LABS: CREATININE 0.8 mg/dL (0.55-1.3)
[2023-02-04 23:44] LABS: BILIRUBIN,TOTAL 0.2 mg/dL (0.2-1); TOT PROT 6.7 g/dl (6.4-8.2)
[2023-02-04 23:47] LABS: N-TERMINAL BNP 119.2 pg/ml (5-125)
[2023-02-05] MEDS ORDERED: MAGNESIUM SULF 50% (8.12 MEQ/2 ML-1 GM VIAL) IVPB ONE (00:32)
[2023-02-05] MEDS ORDERED: TERBUTALINE SULFATE 1 MG/1 ML VIAL SQ ONE ×3 (00:32→00:58)
[2023-02-05] MEDS ORDERED: SODIUM CHLORIDE 0.9% 500 ML INFUS.BAG IV ONE (00:40)
[2023-02-05] MEDS ORDERED: MAGNESIUM SULFATE IN WATER 2 GM/50 ML IVPB IVPB ONE (00:59)
[2023-02-05] MEDS ORDERED: ALBUTEROL SO4 HFA INHALER IH PRN (02:15)
[2023-02-05] MEDS ORDERED: FUROSEMIDE 40 MG/4 ML INJECTABLE VIAL IVPUSH ONE ×2 (02:30→14:00)
[2023-02-05] MEDS ORDERED: FUROSEMIDE 40 MG/4 ML INJECTABLE VIAL ONE ×2 (02:44→14:28)
[2023-02-05] MEDS ORDERED: LORATADINE 10 MG TABLET PO PRN (02:46)
[2023-02-05 06:36] LABS: HEMOGLOBIN 10.9 GM/dL (10.7-15.3); MCH 24.4 pg (25.7-33.7); MCHC 31.2 g/dl (32.0-36.0); MEAN CELL VOLUME 78.2 fl (80-96); MEAN PLT VOLUME 6.8 fl (7.5-11.1); PLATELET COUNT 428 10^3/uL (134-434); RBC 4.47 M/mm3 (3.60-5.2); RDW 18.5 % (11.6-15.6); WHITE BLOOD COUNT 11.1 K/mm3 (4.0-10.0)
[2023-02-05 06:53] LABS: POTASSIUM 4.1 mmol/L (3.5-5.1)
[2023-02-05 06:55] LABS: CALCIUM 8.2 mg/dL (8.5-10.1)
[2023-02-05 06:56] LABS: ALBUMIN 3.4 g/dl (3.4-5.0); BLOOD UREA NITROGEN 13.1 mg/dL (7-18)
[2023-02-05 07:01] LABS: BILIRUBIN,TOTAL 0.2 mg/dL (0.2-1); TOT PROT 7.3 g/dl (6.4-8.2)
[2023-02-05] MEDS ORDERED: busPIRone HCL 5 MG TABLET ONE (08:25)
[2023-02-05] MEDS ORDERED: PANTOPRAZOLE 40 MG TABLET PO ONE (08:25)
[2023-02-05] MEDS ORDERED: LEVALBUTEROL HCL 0.31 MG/3 ML VIAL.NEB IH ONE (08:25)
[2023-02-05] MEDS ORDERED: BUPRENORPHINE/NALOXONE 8 MG/2 MG FILM PACKET ONE (08:26)
[2023-02-05] MEDS ORDERED: FERROUS SO4 325 MG TABLET (FP) ONE (08:26)
[2023-02-05] MEDS ORDERED: DOCUSATE SODIUM 100 MG CAPSULE (FP) PO ONE (08:26)
[2023-02-05] MEDS ORDERED: ENOXAPARIN NA (PORCINE) 40 MG/0.4 ML DISP.SYRIN SQ ONE (08:26)
[2023-02-05] MEDS ORDERED: PARoxetine HCL 10 MG TABLET ONE (08:26)
[2023-02-05] MEDS ORDERED: AZITHROMYCIN IVPB 500 MG/250 ML BAG IVPB ONE (08:27)
[2023-02-05] MEDS ORDERED: methylPREDNISolone NA SUCC 40 MG/1 ML VIAL ONE (08:27)
[2023-02-05] MEDS: LEVALBUTEROL HCL 0.31 MG/3 ML VIAL.NEB IH SCH ×3 (10:00→20:05)
[2023-02-05] MEDS: busPIRone HCL 5 MG TABLET PO SCH ×2 (10:00→23:07)
[2023-02-05] MEDS ORDERED: ENOXAPARIN NA (PORCINE) 40 MG/0.4 ML DISP.SYRIN SQ SCH (10:00)
[2023-02-05] MEDS ORDERED: BUDESONIDE/FORMETEROL FUMARATE 160/4.5 mcg INHALER IH SCH (10:00)
[2023-02-05] MEDS ORDERED: FERROUS SO4 325 MG TABLET (FP) PO SCH (10:00)
[2023-02-05] MEDS: BUPRENORPHINE/NALOXONE 8 MG/2 MG FILM PACKET SL SCH ×3 (10:00→23:07)
[2023-02-05] MEDS ORDERED: PARoxetine HCL 20 MG TABLET PO SCH (10:00)
[2023-02-05] MEDS: methylPREDNISolone NA SUCC 40 MG/1 ML VIAL IVPUSH SCH ×2 (10:00→17:49)
[2023-02-05] MEDS ORDERED: LORATADINE 10 MG TABLET PO SCH (10:00)
[2023-02-05] MEDS: PANTOPRAZOLE 40 MG TABLET PO SCH (10:00)
[2023-02-05] MEDS ORDERED: AZITHROMYCIN IVPB 500 MG/250 ML BAG IVPB SCH (10:00)
[2023-02-05] MEDS ORDERED: DOCUSATE SODIUM 100 MG CAPSULE (FP) PO SCH (10:00)
[2023-02-05 16:11] VITALS: BMI 37.0
[2023-02-05] MEDS ORDERED: MONTELUKAST NA 10 MG TABLET PO SCH (22:00)
[2023-02-06] MEDS: methylPREDNISolone NA SUCC 40 MG/1 ML VIAL IVPUSH SCH ×3 (03:01→22:05)
[2023-02-06] MEDS: PANTOPRAZOLE 40 MG TABLET PO SCH (06:21)
[2023-02-06] MEDS: BUPRENORPHINE/NALOXONE 8 MG/2 MG FILM PACKET SL SCH ×3 (06:22→22:03)
[2023-02-06] MEDS ORDERED: ALBUTEROL SO4 HFA INHALER IH PRN (07:15)
[2023-02-06] MEDS ORDERED: LORATADINE 10 MG TABLET PO PRN (07:15)
[2023-02-06] MEDS: LEVALBUTEROL HCL 0.31 MG/3 ML VIAL.NEB IH SCH ×3 (09:00→20:20)
[2023-02-06] MEDS ORDERED: BUDESONIDE/FORMETEROL FUMARATE 160/4.5 mcg INHALER IH SCH (10:00)
[2023-02-06] MEDS ORDERED: AZITHROMYCIN IVPB 500 MG/250 ML BAG IVPB SCH (10:00)
[2023-02-06] MEDS ORDERED: methylPREDNISolone NA SUCC 40 MG/1 ML VIAL IVPUSH SCH (10:00)
[2023-02-06] MEDS ORDERED: FUROSEMIDE 40 MG/4 ML INJECTABLE VIAL IVPUSH ONE (10:00)
[2023-02-06] MEDS: ENOXAPARIN NA (PORCINE) 40 MG/0.4 ML DISP.SYRIN SQ SCH (10:41)
[2023-02-06] MEDS: FERROUS SO4 325 MG TABLET (FP) PO SCH (10:42)
[2023-02-06] MEDS: DOCUSATE SODIUM 100 MG CAPSULE (FP) PO SCH (10:42)
[2023-02-06] MEDS: busPIRone HCL 5 MG TABLET PO SCH ×2 (10:42→22:03)
[2023-02-06] MEDS: PARoxetine HCL 20 MG TABLET PO SCH (10:42)
[2023-02-06] MEDS ORDERED: FLUTICASONE/UMECLIDIN/VILANTER(100-62.5-25 TRELEGY ELLIPTA) INAHLER IH SCH (11:00)
[2023-02-06] MEDS: MONTELUKAST NA 10 MG TABLET PO SCH (22:04)
[2023-02-07] MEDS: BUPRENORPHINE/NALOXONE 8 MG/2 MG FILM PACKET SL SCH ×3 (06:07→22:04)
[2023-02-07] MEDS: PANTOPRAZOLE 40 MG TABLET PO SCH (06:08)
[2023-02-07 06:50] LABS: BASO % 0.1 % (0-2.0); HEMATOCRIT 34.6 % (32.4-45.2); MCHC 31.7 g/dl (32.0-36.0); MEAN PLT VOLUME 6.9 fl (7.5-11.1); MONO % 4.7 % (3.8-10.2); NEUT % 86.2 % (42.8-82.8); PLATELET COUNT 463 10^3/uL (134-434); RBC 4.38 M/mm3 (3.60-5.2); RDW 18.2 % (11.6-15.6); WHITE BLOOD COUNT 18.5 K/mm3 (4.0-10.0)
[2023-02-07 07:01] LABS: POTASSIUM 4.4 mmol/L (3.5-5.1)
[2023-02-07 07:02] LABS: CALCIUM 9.2 mg/dL (8.5-10.1)
[2023-02-07 07:06] LABS: CREATININE 0.8 mg/dL (0.55-1.3)
[2023-02-07] MEDS: LEVALBUTEROL HCL 0.31 MG/3 ML VIAL.NEB IH SCH ×3 (07:52→20:05)
[2023-02-07] MEDS: PARoxetine HCL 20 MG TABLET PO SCH (09:52)
[2023-02-07] MEDS: ENOXAPARIN NA (PORCINE) 40 MG/0.4 ML DISP.SYRIN SQ SCH (09:52)
[2023-02-07] MEDS: busPIRone HCL 5 MG TABLET PO SCH ×2 (09:52→22:03)
[2023-02-07] MEDS: methylPREDNISolone NA SUCC 40 MG/1 ML VIAL IVPUSH SCH ×2 (09:52→22:03)
[2023-02-07] MEDS: FERROUS SO4 325 MG TABLET (FP) PO SCH (09:53)
[2023-02-07] MEDS: LISINOPRIL 5 MG TABLET PO SCH (09:53)
[2023-02-07] MEDS: FLUTICASONE/UMECLIDIN/VILANTER(200-62.5-25 TRELEGY ELLIPTA) INAHLER IH SCH (09:53)
[2023-02-07] MEDS: DOCUSATE SODIUM 100 MG CAPSULE (FP) PO SCH (09:53)
[2023-02-07] MEDS ORDERED: MAGNESIUM HYDROX 2400MG/30ML ORAL SUSPENSION 30 ML CUP PO PRN (11:55)
[2023-02-07] MEDS: POLYETHYLENE GLYCOL (HEALTHYLAX) 3350 17 GM PACKET PO SCH ×2 (17:20→22:02)
[2023-02-07] MEDS ORDERED: SENNOSIDES 8.8 MG/5 ML SYRUP PO SCH (22:00)
[2023-02-07] MEDS: MONTELUKAST NA 10 MG TABLET PO SCH (22:04)
[2023-02-08] MEDS: POLYETHYLENE GLYCOL (HEALTHYLAX) 3350 17 GM PACKET PO SCH ×2 (05:57→14:58)
[2023-02-08] MEDS: BUPRENORPHINE/NALOXONE 8 MG/2 MG FILM PACKET SL SCH ×2 (05:58→14:57)
[2023-02-08] MEDS: PANTOPRAZOLE 40 MG TABLET PO SCH (06:00)
[2023-02-08 06:58] LABS: HEMATOCRIT 34.8 % (32.4-45.2); HEMOGLOBIN 11.1 GM/dL (10.7-15.3); MCH 25.4 pg (25.7-33.7); MEAN CELL VOLUME 79.3 fl (80-96); MEAN PLT VOLUME 6.9 fl (7.5-11.1); PLATELET COUNT 420 10^3/uL (134-434); RBC 4.39 M/mm3 (3.60-5.2); RDW 18.1 % (11.6-15.6); WHITE BLOOD COUNT 12.3 K/mm3 (4.0-10.0)
[2023-02-08 07:25] LABS: CALCIUM 8.7 mg/dL (8.5-10.1)
[2023-02-08 07:26] LABS: ALBUMIN 3.1 g/dl (3.4-5.0); BLOOD UREA NITROGEN 19.5 mg/dL (7-18)
[2023-02-08 07:29] LABS: CREATININE 0.9 mg/dL (0.55-1.3)
[2023-02-08 07:30] LABS: BILIRUBIN,TOTAL 0.5 mg/dL (0.2-1); TOT PROT 6.8 g/dl (6.4-8.2)
[2023-02-08] MEDS: LEVALBUTEROL HCL 0.31 MG/3 ML VIAL.NEB IH SCH ×2 (07:30→14:45)
[2023-02-08 09:05] LABS: ANISOCYTOSIS 0; MACROCYTOSIS 0
[2023-02-08] MEDS: FLUTICASONE/UMECLIDIN/VILANTER(200-62.5-25 TRELEGY ELLIPTA) INAHLER IH SCH (10:25)
[2023-02-08] MEDS: busPIRone HCL 5 MG TABLET PO SCH (10:26)
[2023-02-08] MEDS: PARoxetine HCL 20 MG TABLET PO SCH (10:26)
[2023-02-08] MEDS: FERROUS SO4 325 MG TABLET (FP) PO SCH (10:26)
[2023-02-08] MEDS: methylPREDNISolone NA SUCC 40 MG/1 ML VIAL IVPUSH SCH (10:26)
[2023-02-08] MEDS: DOCUSATE SODIUM 100 MG CAPSULE (FP) PO SCH (10:26)
[2023-02-08] MEDS: LISINOPRIL 5 MG TABLET PO SCH (10:26)
[2023-02-08] MEDS: ENOXAPARIN NA (PORCINE) 40 MG/0.4 ML DISP.SYRIN SQ SCH (10:26)
[2023-02-08 15:23] VITALS: BP 117/69; PULSE 114; RESP 22; TEMP 98.4
== END 2023-02-08 17:02 | disposition home or self-care (01) ==
LOC: JER 22:07 → JERBED 02-05 00:45 → J4W 02-05 14:52
PROVIDERS: ADMIT Internal Medicine; ATTEND Internal Medicine
PROC: 3E0F7GC Introduction of Other Therapeutic Substance into Respiratory Tract, Via Natural or Artificial Opening (ICD-10-PCS; principal; 2023-02-05)
PROC: 3E03329 Introduction of Other Anti-infective into Peripheral Vein, Percutaneous Approach (ICD-10-PCS; 2023-02-05)
PROC: 3E033GC Introduction of Other Therapeutic Substance into Peripheral Vein, Percutaneous Approach (ICD-10-PCS; 2023-02-05)
PROC: 3E0337Z Introduction of Electrolytic and Water Balance Substance into Peripheral Vein, Percutaneous Approach (ICD-10-PCS; 2023-02-05)
DX: J45.21 Mild intermittent asthma with (acute) exacerbation (principal); E05.80 Other thyrotoxicosis without thyrotoxic crisis or storm; Z88.0 Allergy status to penicillin; Z91.018 Allergy to other foods
CPT/HCPCS: 0241U-QW; 36415; 71045-TC-FY; 74178-TC; 80048; 80053; 80061; 83036; 83880; 84439; 84443; 84702; 85025; 85027; 93005; 93010; 93306-TC; 94640; 96365; 96372; 96375; 96376; 99285-25; G0378; Q9963; Q9967

== ENCOUNTER 2023-02-28 13:33 | Inpatient (IN) | payer OTHER ==
[2023-02-28] MEDS ORDERED: ALBUTEROL SO4 2.5/IPRATROPIUM 0.5 INH SOL 3 ML VIAL.NEB. NEB ONE ×8 (14:32→23:49)
[2023-02-28 15:09] LABS: BASO % 0.1 % (0-2.0); HEMATOCRIT 34.1 % (32.4-45.2); HEMOGLOBIN 10.7 GM/dL (10.7-15.3); INR 0.97 (0.83-1.09); LYMPH % 8.3 % (8-40); MCH 24.7 pg (25.7-33.7); MCHC 31.4 g/dl (32.0-36.0); MEAN CELL VOLUME 78.5 fl (80-96); MONO % 1.6 % (3.8-10.2); PLATELET COUNT 352 10^3/uL (134-434); PROTHROMBIN TIME (PATIENT) 11.2 SEC (9.7-13.0); RBC 4.34 M/mm3 (3.60-5.2); RDW 18.8 % (11.6-15.6); WHITE BLOOD COUNT 11.4 K/mm3 (4.0-10.0)
[2023-02-28 15:13] LABS: ACTIVATED PTT 30.4 SECONDS (25.2-36.5)
[2023-02-28 15:28] LABS: CHLORIDE 104 mmol/L (98-107); POTASSIUM 4.6 mmol/L (3.5-5.1); SODIUM 139 mmol/L (136-145)
[2023-02-28 15:30] LABS: CALCIUM 9.4 mg/dL (8.5-10.1)
[2023-02-28 15:32] LABS: ALBUMIN 3.3 g/dl (3.4-5.0); ANION GAP 3 mmol/L (4-13); BLOOD UREA NITROGEN 13.4 mg/dL (7-18); CO2 31 mmol/L (21-32); GLUCOSE,RANDOM 136 mg/dL (74-106)
[2023-02-28] MEDS ORDERED: methylPREDNISolone NA SUCC 125 MG/2 ML VIAL IVPUSH ONE (15:33)
[2023-02-28 15:35] LABS: CREATININE 0.7 mg/dL (0.55-1.3); SGOT/AST 24 U/L (15-37); SGPT/ALT 37 U/L (13-61)
[2023-02-28 15:37] LABS: ALK PHOS 97 U/L (45-117); BILIRUBIN,TOTAL 0.2 mg/dL (0.2-1)
[2023-02-28 15:40] LABS: N-TERMINAL BNP 506.5 pg/ml (5-125)
[2023-02-28] MEDS ORDERED: methylPREDNISolone NA SUCC 125 MG/2 ML VIAL ONE (15:45)
[2023-02-28] MEDS: ALBUTEROL SO4 2.5/IPRATROPIUM 0.5 INH SOL 3 ML VIAL.NEB. NEB SCH ×3 (16:22→16:56)
[2023-02-28] MEDS ORDERED: ALBUTEROL SO4 HFA INHALER IH PRN (22:08)
[2023-03-01] MEDS: CYPROHEPTADINE HCL 4 MG TABLET PO SCH ×4 (00:18→21:24)
[2023-03-01] MEDS ORDERED: methylPREDNISolone NA SUCC 40 MG/1 ML VIAL IVPUSH SCH ×2 (02:00→03:33)
[2023-03-01] MEDS: FUROSEMIDE 40 MG/4 ML INJECTABLE VIAL IVPUSH SCH ×3 (04:14→15:52)
[2023-03-01] MEDS ORDERED: BUPRENORPHINE/NALOXONE 8 MG/2 MG FILM PACKET ONE (06:26)
[2023-03-01] MEDS ORDERED: FUROSEMIDE 40 MG/4 ML INJECTABLE VIAL ONE (06:27)
[2023-03-01] MEDS: BUPRENORPHINE/NALOXONE 8 MG/2 MG FILM PACKET SL SCH ×3 (06:32→21:22)
[2023-03-01 07:59] LABS: HEMATOCRIT 32.9 % (32.4-45.2); HEMOGLOBIN 10.6 GM/dL (10.7-15.3); MCH 25.3 pg (25.7-33.7); MCHC 32.1 g/dl (32.0-36.0); MEAN CELL VOLUME 78.8 fl (80-96); MEAN PLT VOLUME 7.1 fl (7.5-11.1); PLATELET COUNT 329 10^3/uL (134-434); RBC 4.18 M/mm3 (3.60-5.2); RDW 18.8 % (11.6-15.6); WHITE BLOOD COUNT 14.8 K/mm3 (4.0-10.0)
[2023-03-01 08:31] LABS: POTASSIUM 4.1 mmol/L (3.5-5.1)
[2023-03-01 09:14] LABS: ANISOCYTOSIS 0; MACROCYTOSIS 0
[2023-03-01 09:23] LABS: CALCIUM 9.4 mg/dL (8.5-10.1)
[2023-03-01 09:24] LABS: ALBUMIN 3.4 g/dl (3.4-5.0); BLOOD UREA NITROGEN 16.8 mg/dL (7-18)
[2023-03-01 09:27] LABS: CREATININE 0.8 mg/dL (0.55-1.3)
[2023-03-01 09:30] LABS: BILIRUBIN,TOTAL 0.1 mg/dL (0.2-1)
[2023-03-01] MEDS ORDERED: LISINOPRIL 5 MG TABLET PO SCH (10:00)
[2023-03-01] MEDS: ENOXAPARIN NA (PORCINE) 40 MG/0.4 ML DISP.SYRIN SQ SCH (10:17)
[2023-03-01] MEDS: FLUoxetine HCL 20 MG CAPSULE PO SCH (10:18)
[2023-03-01] MEDS: hydrOXYzine PAMOATE 25 MG CAPSULE (FP) PO SCH ×2 (10:18→21:22)
[2023-03-01] MEDS: SENNOSIDES 8.6MG TABLET (FP) PO SCH (10:18)
[2023-03-01] MEDS: FLUTICASONE/UMECLIDIN/VILANTER(200-62.5-25 TRELEGY ELLIPTA) INAHLER IH SCH (10:20)
[2023-03-01] MEDS: methylPREDNISolone NA SUCC 40 MG/1 ML VIAL IVPUSH SCH (17:27)
[2023-03-01] MEDS: ALBUTEROL SO4 2.5/IPRATROPIUM 0.5 INH SOL 3 ML VIAL.NEB. NEB SCH (21:34)
[2023-03-02] MEDS: methylPREDNISolone NA SUCC 40 MG/1 ML VIAL IVPUSH SCH ×3 (01:06→18:28)
[2023-03-02] MEDS: CYPROHEPTADINE HCL 4 MG TABLET PO SCH ×3 (05:31→21:16)
[2023-03-02] MEDS: FUROSEMIDE 40 MG/4 ML INJECTABLE VIAL IVPUSH SCH (05:31)
[2023-03-02] MEDS: BUPRENORPHINE/NALOXONE 8 MG/2 MG FILM PACKET SL SCH ×3 (05:31→21:15)
[2023-03-02] MEDS: ALBUTEROL SO4 2.5/IPRATROPIUM 0.5 INH SOL 3 ML VIAL.NEB. NEB SCH ×4 (07:15→20:30)
[2023-03-02 09:38] LABS: HEMATOCRIT 33.3 % (32.4-45.2); HEMOGLOBIN 10.6 GM/dL (10.7-15.3); MCH 24.6 pg (25.7-33.7); MCHC 31.7 g/dl (32.0-36.0); MEAN CELL VOLUME 77.5 fl (80-96); MEAN PLT VOLUME 7.3 fl (7.5-11.1); PLATELET COUNT 336 10^3/uL (134-434); RBC 4.29 M/mm3 (3.60-5.2); RDW 19.2 % (11.6-15.6); WHITE BLOOD COUNT 13.3 K/mm3 (4.0-10.0)
[2023-03-02 10:05] LABS: POTASSIUM 3.9 mmol/L (3.5-5.1)
[2023-03-02 10:06] LABS: CALCIUM 8.8 mg/dL (8.5-10.1)
[2023-03-02 10:07] LABS: ALBUMIN 3.4 g/dl (3.4-5.0); BLOOD UREA NITROGEN 22.8 mg/dL (7-18); MAGNESIUM 1.8 mg/dL (1.8-2.4)
[2023-03-02 10:10] LABS: CREATININE 0.9 mg/dL (0.55-1.3)
[2023-03-02 10:11] LABS: ANISOCYTOSIS 1+; BILIRUBIN,TOTAL 0.2 mg/dL (0.2-1); MACROCYTOSIS 1+; TOT PROT 6.7 g/dl (6.4-8.2)
[2023-03-02] MEDS: hydrOXYzine PAMOATE 25 MG CAPSULE (FP) PO SCH ×2 (10:15→21:15)
[2023-03-02] MEDS: ENOXAPARIN NA (PORCINE) 40 MG/0.4 ML DISP.SYRIN SQ SCH (10:15)
[2023-03-02] MEDS: SENNOSIDES 8.6MG TABLET (FP) PO SCH (10:15)
[2023-03-02] MEDS: FLUoxetine HCL 20 MG CAPSULE PO SCH (10:15)
[2023-03-02] MEDS: FLUTICASONE/UMECLIDIN/VILANTER(200-62.5-25 TRELEGY ELLIPTA) INAHLER IH SCH (10:16)
[2023-03-02] MEDS: THEOPHYLLINE ANHYDROUS 100 MG CAP.ER.24H PO SCH ×2 (11:59→23:15)
[2023-03-02] MEDS: MINOXIDIL 2.5 MG TABLET PO SCH (23:14)
[2023-03-03] MEDS: methylPREDNISolone NA SUCC 40 MG/1 ML VIAL IVPUSH SCH ×3 (01:18→17:34)
[2023-03-03] MEDS: BUPRENORPHINE/NALOXONE 8 MG/2 MG FILM PACKET SL SCH ×3 (06:45→21:26)
[2023-03-03] MEDS: CYPROHEPTADINE HCL 4 MG TABLET PO SCH ×3 (06:46→21:25)
[2023-03-03] MEDS: ALBUTEROL SO4 2.5/IPRATROPIUM 0.5 INH SOL 3 ML VIAL.NEB. NEB SCH ×4 (07:15→20:38)
[2023-03-03] MEDS: ENOXAPARIN NA (PORCINE) 40 MG/0.4 ML DISP.SYRIN SQ SCH (09:08)
[2023-03-03] MEDS: MINOXIDIL 2.5 MG TABLET PO SCH ×2 (09:08→21:25)
[2023-03-03] MEDS: FLUoxetine HCL 20 MG CAPSULE PO SCH (09:08)
[2023-03-03] MEDS: THEOPHYLLINE ANHYDROUS 100 MG CAP.ER.24H PO SCH ×2 (09:09→21:27)
[2023-03-03] MEDS: SENNOSIDES 8.6MG TABLET (FP) PO SCH (09:09)
[2023-03-03] MEDS: FLUTICASONE/UMECLIDIN/VILANTER(200-62.5-25 TRELEGY ELLIPTA) INAHLER IH SCH (09:10)
[2023-03-03] MEDS: hydrOXYzine PAMOATE 25 MG CAPSULE (FP) PO SCH ×2 (09:10→21:26)
[2023-03-03 09:17] LABS: HEMATOCRIT 32.3 % (32.4-45.2); HEMOGLOBIN 10.3 GM/dL (10.7-15.3); MCH 25.4 pg (25.7-33.7); MCHC 31.8 g/dl (32.0-36.0); MEAN CELL VOLUME 79.7 fl (80-96); MEAN PLT VOLUME 7.2 fl (7.5-11.1); PLATELET COUNT 304 10^3/uL (134-434); RBC 4.05 M/mm3 (3.60-5.2); RDW 18.3 % (11.6-15.6); WHITE BLOOD COUNT 13.1 K/mm3 (4.0-10.0)
[2023-03-03 09:38] LABS: POTASSIUM 4.4 mmol/L (3.5-5.1)
[2023-03-03 09:44] LABS: ALBUMIN 3.4 g/dl (3.4-5.0); BLOOD UREA NITROGEN 18.9 mg/dL (7-18); CALCIUM 8.9 mg/dL (8.5-10.1); MAGNESIUM 1.9 mg/dL (1.8-2.4)
[2023-03-03 09:49] LABS: BILIRUBIN,TOTAL 0.2 mg/dL (0.2-1); TOT PROT 6.7 g/dl (6.4-8.2)
[2023-03-03 09:50] LABS: CREATININE 0.8 mg/dL (0.55-1.3)
[2023-03-03 10:35] LABS: ANISOCYTOSIS 2+; MACROCYTOSIS 0
[2023-03-03] MEDS: LISINOPRIL 5 MG TABLET PO SCH (11:49)
[2023-03-03] MEDS: FUROSEMIDE 40 MG/4 ML INJECTABLE VIAL IVPUSH SCH (16:33)
[2023-03-04] MEDS: methylPREDNISolone NA SUCC 40 MG/1 ML VIAL IVPUSH SCH ×3 (02:10→17:30)
[2023-03-04] MEDS: BUPRENORPHINE/NALOXONE 8 MG/2 MG FILM PACKET SL SCH ×3 (06:12→22:08)
[2023-03-04] MEDS: CYPROHEPTADINE HCL 4 MG TABLET PO SCH ×3 (06:12→22:06)
[2023-03-04] MEDS: ALBUTEROL SO4 2.5/IPRATROPIUM 0.5 INH SOL 3 ML VIAL.NEB. NEB SCH ×4 (07:59→20:22)
[2023-03-04 09:09] LABS: HEMATOCRIT 35.2 % (32.4-45.2); HEMOGLOBIN 11.1 GM/dL (10.7-15.3); MCH 24.8 pg (25.7-33.7); MCHC 31.7 g/dl (32.0-36.0); MEAN CELL VOLUME 78.3 fl (80-96); MEAN PLT VOLUME 7.2 fl (7.5-11.1); PLATELET COUNT 340 10^3/uL (134-434); RBC 4.49 M/mm3 (3.60-5.2); RDW 18.9 % (11.6-15.6); WHITE BLOOD COUNT 13.5 K/mm3 (4.0-10.0)
[2023-03-04] MEDS: FLUoxetine HCL 20 MG CAPSULE PO SCH (09:30)
[2023-03-04] MEDS: LISINOPRIL 5 MG TABLET PO SCH (09:30)
[2023-03-04] MEDS: ENOXAPARIN NA (PORCINE) 40 MG/0.4 ML DISP.SYRIN SQ SCH (09:30)
[2023-03-04] MEDS: SENNOSIDES 8.6MG TABLET (FP) PO SCH (09:30)
[2023-03-04] MEDS: FUROSEMIDE 40 MG/4 ML INJECTABLE VIAL IVPUSH SCH ×2 (09:30→13:36)
[2023-03-04] MEDS: hydrOXYzine PAMOATE 25 MG CAPSULE (FP) PO SCH ×2 (09:30→22:08)
[2023-03-04] MEDS: MINOXIDIL 2.5 MG TABLET PO SCH ×2 (09:31→22:09)
[2023-03-04] MEDS: THEOPHYLLINE ANHYDROUS 100 MG CAP.ER.24H PO SCH ×2 (09:32→22:07)
[2023-03-04] MEDS: FLUTICASONE/UMECLIDIN/VILANTER(200-62.5-25 TRELEGY ELLIPTA) INAHLER IH SCH (09:35)
[2023-03-04 09:40] LABS: POTASSIUM 4.5 mmol/L (3.5-5.1)
[2023-03-04 09:50] LABS: ALBUMIN 3.4 g/dl (3.4-5.0); BLOOD UREA NITROGEN 19.5 mg/dL (7-18); CALCIUM 9.3 mg/dL (8.5-10.1); CREATININE 0.9 mg/dL (0.55-1.3)
[2023-03-04 09:51] LABS: ANISOCYTOSIS 3+; MACROCYTOSIS 0; TOT PROT 7.1 g/dl (6.4-8.2)
[2023-03-04 09:52] LABS: BILIRUBIN,TOTAL 0.2 mg/dL (0.2-1)
[2023-03-04 09:53] LABS: MAGNESIUM 1.9 mg/dL (1.8-2.4)
[2023-03-04] MEDS ORDERED: INSULIN (NOVOLOG) ASPART 100 UNITS/ML 10ML VIAL ONE (11:48)
[2023-03-05] MEDS: methylPREDNISolone NA SUCC 40 MG/1 ML VIAL IVPUSH SCH ×3 (01:26→17:55)
[2023-03-05] MEDS: CYPROHEPTADINE HCL 4 MG TABLET PO SCH ×3 (05:16→22:18)
[2023-03-05] MEDS: FUROSEMIDE 40 MG/4 ML INJECTABLE VIAL IVPUSH SCH ×2 (05:16→14:06)
[2023-03-05] MEDS: BUPRENORPHINE/NALOXONE 8 MG/2 MG FILM PACKET SL SCH ×3 (05:17→22:16)
[2023-03-05] MEDS: ALBUTEROL SO4 2.5/IPRATROPIUM 0.5 INH SOL 3 ML VIAL.NEB. NEB SCH ×4 (08:55→21:12)
[2023-03-05] MEDS: FLUoxetine HCL 20 MG CAPSULE PO SCH (09:52)
[2023-03-05] MEDS: THEOPHYLLINE ANHYDROUS 100 MG CAP.ER.24H PO SCH ×2 (09:53→22:18)
[2023-03-05] MEDS: LISINOPRIL 10 MG TABLET PO SCH (09:53)
[2023-03-05] MEDS: SENNOSIDES 8.6MG TABLET (FP) PO SCH (09:53)
[2023-03-05] MEDS: hydrOXYzine PAMOATE 25 MG CAPSULE (FP) PO SCH ×2 (09:53→22:16)
[2023-03-05] MEDS: MINOXIDIL 2.5 MG TABLET PO SCH ×2 (09:54→22:19)
[2023-03-05] MEDS: ENOXAPARIN NA (PORCINE) 40 MG/0.4 ML DISP.SYRIN SQ SCH (09:54)
[2023-03-05] MEDS: FLUTICASONE/UMECLIDIN/VILANTER(200-62.5-25 TRELEGY ELLIPTA) INAHLER IH SCH (09:55)
[2023-03-06] MEDS: methylPREDNISolone NA SUCC 40 MG/1 ML VIAL IVPUSH SCH ×3 (01:29→17:10)
[2023-03-06] MEDS: BUPRENORPHINE/NALOXONE 8 MG/2 MG FILM PACKET SL SCH ×3 (05:20→21:53)
[2023-03-06] MEDS: FUROSEMIDE 40 MG/4 ML INJECTABLE VIAL IVPUSH SCH ×2 (05:20→13:29)
[2023-03-06] MEDS: CYPROHEPTADINE HCL 4 MG TABLET PO SCH ×3 (05:21→21:50)
[2023-03-06] MEDS: ALBUTEROL SO4 2.5/IPRATROPIUM 0.5 INH SOL 3 ML VIAL.NEB. NEB SCH ×4 (07:52→20:40)
[2023-03-06] MEDS: SENNOSIDES 8.6MG TABLET (FP) PO SCH (09:31)
[2023-03-06] MEDS: ENOXAPARIN NA (PORCINE) 40 MG/0.4 ML DISP.SYRIN SQ SCH (09:31)
[2023-03-06] MEDS: hydrOXYzine PAMOATE 25 MG CAPSULE (FP) PO SCH ×2 (09:31→21:53)
[2023-03-06] MEDS: LISINOPRIL 10 MG TABLET PO SCH (09:31)
[2023-03-06] MEDS: FLUoxetine HCL 20 MG CAPSULE PO SCH (09:31)
[2023-03-06] MEDS: MINOXIDIL 2.5 MG TABLET PO SCH ×2 (09:32→21:50)
[2023-03-06] MEDS: THEOPHYLLINE ANHYDROUS 100 MG CAP.ER.24H PO SCH ×2 (09:37→21:50)
[2023-03-06] MEDS: FLUTICASONE/UMECLIDIN/VILANTER(200-62.5-25 TRELEGY ELLIPTA) INAHLER IH SCH (09:38)
[2023-03-06 10:25] LABS: HEMATOCRIT 39.5 % (32.4-45.2); HEMOGLOBIN 12.4 GM/dL (10.7-15.3); MCH 24.6 pg (25.7-33.7); MCHC 31.4 g/dl (32.0-36.0); MEAN CELL VOLUME 78.2 fl (80-96); MEAN PLT VOLUME 7.3 fl (7.5-11.1); PLATELET COUNT 405 10^3/uL (134-434); RBC 5.05 M/mm3 (3.60-5.2); RDW 18.6 % (11.6-15.6); WHITE BLOOD COUNT 21.1 K/mm3 (4.0-10.0)
[2023-03-06 10:58] LABS: POTASSIUM 3.9 mmol/L (3.5-5.1)
[2023-03-06 11:10] LABS: CALCIUM 9.4 mg/dL (8.5-10.1)
[2023-03-06 11:11] LABS: ALBUMIN 3.6 g/dl (3.4-5.0); MAGNESIUM 2.2 mg/dL (1.8-2.4)
[2023-03-06 11:12] LABS: BLOOD UREA NITROGEN 25.7 mg/dL (7-18)
[2023-03-06 11:14] LABS: CREATININE 1.1 mg/dL (0.55-1.3)
[2023-03-06 11:16] LABS: TOT PROT 7.4 g/dl (6.4-8.2)
[2023-03-06 11:17] LABS: BILIRUBIN,TOTAL 0.3 mg/dL (0.2-1)
[2023-03-06 11:21] LABS: ANISOCYTOSIS 1+; MACROCYTOSIS 0
[2023-03-07] MEDS: methylPREDNISolone NA SUCC 40 MG/1 ML VIAL IVPUSH SCH ×3 (03:00→17:35)
[2023-03-07] MEDS: FUROSEMIDE 40 MG/4 ML INJECTABLE VIAL IVPUSH SCH ×2 (05:30→14:10)
[2023-03-07] MEDS: BUPRENORPHINE/NALOXONE 8 MG/2 MG FILM PACKET SL SCH ×3 (05:30→21:27)
[2023-03-07] MEDS: CYPROHEPTADINE HCL 4 MG TABLET PO SCH ×3 (05:31→21:27)
[2023-03-07] MEDS: ALBUTEROL SO4 2.5/IPRATROPIUM 0.5 INH SOL 3 ML VIAL.NEB. NEB SCH ×4 (07:43→19:50)
[2023-03-07] MEDS: hydrOXYzine PAMOATE 25 MG CAPSULE (FP) PO SCH ×2 (09:32→21:26)
[2023-03-07] MEDS: FLUoxetine HCL 20 MG CAPSULE PO SCH (09:32)
[2023-03-07] MEDS: LISINOPRIL 10 MG TABLET PO SCH (09:32)
[2023-03-07] MEDS: SENNOSIDES 8.6MG TABLET (FP) PO SCH (09:32)
[2023-03-07] MEDS: THEOPHYLLINE ANHYDROUS 100 MG CAP.ER.24H PO SCH ×2 (09:33→22:29)
[2023-03-07] MEDS: MINOXIDIL 2.5 MG TABLET PO SCH ×2 (09:33→21:27)
[2023-03-07] MEDS: ENOXAPARIN NA (PORCINE) 40 MG/0.4 ML DISP.SYRIN SQ SCH (09:33)
[2023-03-07] MEDS: FLUTICASONE/UMECLIDIN/VILANTER(200-62.5-25 TRELEGY ELLIPTA) INAHLER IH SCH (09:34)
[2023-03-07 09:59] LABS: HEMATOCRIT 40.1 % (32.4-45.2); HEMOGLOBIN 12.3 GM/dL (10.7-15.3); MCH 23.8 pg (25.7-33.7); MCHC 30.7 g/dl (32.0-36.0); MEAN CELL VOLUME 77.3 fl (80-96); MEAN PLT VOLUME 7.3 fl (7.5-11.1); PLATELET COUNT 412 10^3/uL (134-434); RBC 5.18 M/mm3 (3.60-5.2); WHITE BLOOD COUNT 19.7 K/mm3 (4.0-10.0)
[2023-03-07 10:00] LABS: POTASSIUM 4.1 mmol/L (3.5-5.1)
[2023-03-07 10:07] LABS: ALBUMIN 3.5 g/dl (3.4-5.0); CALCIUM 9.6 mg/dL (8.5-10.1)
[2023-03-07 10:08] LABS: BLOOD UREA NITROGEN 26.9 mg/dL (7-18); MAGNESIUM 2.2 mg/dL (1.8-2.4)
[2023-03-07 10:11] LABS: CREATININE 1.1 mg/dL (0.55-1.3)
[2023-03-07 10:13] LABS: BILIRUBIN,TOTAL 0.3 mg/dL (0.2-1); TOT PROT 7.1 g/dl (6.4-8.2)
[2023-03-07 10:22] LABS: ANISOCYTOSIS 0; MACROCYTOSIS 0
[2023-03-07] MEDS: ATORVASTATIN CA 40 MG TABLET (FP) PO SCH (21:26)
[2023-03-08] MEDS: methylPREDNISolone NA SUCC 40 MG/1 ML VIAL IVPUSH SCH ×3 (01:22→17:08)
[2023-03-08] MEDS: BUPRENORPHINE/NALOXONE 8 MG/2 MG FILM PACKET SL SCH ×3 (05:30→21:23)
[2023-03-08] MEDS: CYPROHEPTADINE HCL 4 MG TABLET PO SCH ×3 (05:31→21:23)
[2023-03-08] MEDS: FUROSEMIDE 40 MG/4 ML INJECTABLE VIAL IVPUSH SCH (05:31)
[2023-03-08] MEDS: ALBUTEROL SO4 2.5/IPRATROPIUM 0.5 INH SOL 3 ML VIAL.NEB. NEB SCH ×4 (07:38→20:10)
[2023-03-08] MEDS: FLUoxetine HCL 20 MG CAPSULE PO SCH (09:21)
[2023-03-08] MEDS: LISINOPRIL 10 MG TABLET PO SCH (09:21)
[2023-03-08] MEDS: SENNOSIDES 8.6MG TABLET (FP) PO SCH (09:21)
[2023-03-08] MEDS: hydrOXYzine PAMOATE 25 MG CAPSULE (FP) PO SCH ×2 (09:21→21:22)
[2023-03-08] MEDS: ENOXAPARIN NA (PORCINE) 40 MG/0.4 ML DISP.SYRIN SQ SCH (09:21)
[2023-03-08] MEDS: THEOPHYLLINE ANHYDROUS 100 MG CAP.ER.24H PO SCH ×2 (09:22→21:24)
[2023-03-08] MEDS: MINOXIDIL 2.5 MG TABLET PO SCH ×2 (09:22→21:23)
[2023-03-08] MEDS: FLUTICASONE/UMECLIDIN/VILANTER(200-62.5-25 TRELEGY ELLIPTA) INAHLER IH SCH (09:23)
[2023-03-08 10:09] LABS: HEMATOCRIT 40.4 % (32.4-45.2); HEMOGLOBIN 12.7 GM/dL (10.7-15.3); MCH 24.2 pg (25.7-33.7); MCHC 31.4 g/dl (32.0-36.0); MEAN PLT VOLUME 7.4 fl (7.5-11.1); PLATELET COUNT 446 10^3/uL (134-434); RBC 5.25 M/mm3 (3.60-5.2); RDW 18.8 % (11.6-15.6); WHITE BLOOD COUNT 22.5 K/mm3 (4.0-10.0)
[2023-03-08 10:30] LABS: POTASSIUM 3.8 mmol/L (3.5-5.1)
[2023-03-08 10:59] LABS: CALCIUM 9.5 mg/dL (8.5-10.1)
[2023-03-08 11:00] LABS: ALBUMIN 3.4 g/dl (3.4-5.0); BLOOD UREA NITROGEN 23.6 mg/dL (7-18); MAGNESIUM 2.1 mg/dL (1.8-2.4)
[2023-03-08 11:03] LABS: CREATININE 1.1 mg/dL (0.55-1.3)
[2023-03-08 11:05] LABS: BILIRUBIN,TOTAL 0.4 mg/dL (0.2-1); TOT PROT 7.2 g/dl (6.4-8.2)
[2023-03-08] MEDS ORDERED: FUROSEMIDE 40 MG TABLET (FP) PO ONE (14:30)
[2023-03-08] MEDS: ATORVASTATIN CA 40 MG TABLET (FP) PO SCH (21:22)
[2023-03-09] MEDS: methylPREDNISolone NA SUCC 40 MG/1 ML VIAL IVPUSH SCH ×3 (02:37→17:22)
[2023-03-09] MEDS: BUPRENORPHINE/NALOXONE 8 MG/2 MG FILM PACKET SL SCH ×3 (05:25→21:15)
[2023-03-09] MEDS: CYPROHEPTADINE HCL 4 MG TABLET PO SCH ×3 (05:26→21:17)
[2023-03-09] MEDS: ALBUTEROL SO4 2.5/IPRATROPIUM 0.5 INH SOL 3 ML VIAL.NEB. NEB SCH ×4 (07:40→20:02)
[2023-03-09] MEDS: LISINOPRIL 10 MG TABLET PO SCH (09:19)
[2023-03-09] MEDS: FLUoxetine HCL 20 MG CAPSULE PO SCH (09:19)
[2023-03-09] MEDS: hydrOXYzine PAMOATE 25 MG CAPSULE (FP) PO SCH ×2 (09:19→21:15)
[2023-03-09] MEDS: FUROSEMIDE 40 MG TABLET (FP) PO SCH (09:19)
[2023-03-09] MEDS: SENNOSIDES 8.6MG TABLET (FP) PO SCH (09:19)
[2023-03-09] MEDS: MINOXIDIL 2.5 MG TABLET PO SCH ×2 (09:19→21:19)
[2023-03-09] MEDS: THEOPHYLLINE ANHYDROUS 100 MG CAP.ER.24H PO SCH ×2 (09:20→21:16)
[2023-03-09] MEDS: ENOXAPARIN NA (PORCINE) 40 MG/0.4 ML DISP.SYRIN SQ SCH (09:22)
[2023-03-09] MEDS: FLUTICASONE/UMECLIDIN/VILANTER(200-62.5-25 TRELEGY ELLIPTA) INAHLER IH SCH (09:29)
[2023-03-09] MEDS: NYSTATIN 500,000 UNITS/5 ML SUSPENSION PO SCH ×2 (14:42→17:22)
[2023-03-09] MEDS: ATORVASTATIN CA 40 MG TABLET (FP) PO SCH (21:15)
[2023-03-10] MEDS: NYSTATIN 500,000 UNITS/5 ML SUSPENSION PO SCH ×5 (00:03→23:40)
[2023-03-10] MEDS: methylPREDNISolone NA SUCC 40 MG/1 ML VIAL IVPUSH SCH ×3 (01:14→17:15)
[2023-03-10] MEDS: BUPRENORPHINE/NALOXONE 8 MG/2 MG FILM PACKET SL SCH ×3 (06:05→22:13)
[2023-03-10] MEDS: CYPROHEPTADINE HCL 4 MG TABLET PO SCH ×3 (06:05→23:01)
[2023-03-10] MEDS: ALBUTEROL SO4 2.5/IPRATROPIUM 0.5 INH SOL 3 ML VIAL.NEB. NEB SCH ×2 (07:15→11:25)
[2023-03-10] MEDS: ENOXAPARIN NA (PORCINE) 40 MG/0.4 ML DISP.SYRIN SQ SCH (09:17)
[2023-03-10] MEDS: SENNOSIDES 8.6MG TABLET (FP) PO SCH (09:17)
[2023-03-10] MEDS: hydrOXYzine PAMOATE 25 MG CAPSULE (FP) PO SCH ×2 (09:17→22:11)
[2023-03-10] MEDS: FUROSEMIDE 40 MG TABLET (FP) PO SCH (09:17)
[2023-03-10] MEDS: LISINOPRIL 10 MG TABLET PO SCH (09:17)
[2023-03-10] MEDS: FLUoxetine HCL 20 MG CAPSULE PO SCH (09:17)
[2023-03-10] MEDS: THEOPHYLLINE ANHYDROUS 100 MG CAP.ER.24H PO SCH ×2 (09:18→22:13)
[2023-03-10] MEDS: MINOXIDIL 2.5 MG TABLET PO SCH ×2 (09:20→22:12)
[2023-03-10] MEDS: FLUTICASONE/UMECLIDIN/VILANTER(200-62.5-25 TRELEGY ELLIPTA) INAHLER IH SCH (09:20)
[2023-03-10 10:15] LABS: HEMATOCRIT 38.3 % (32.4-45.2); HEMOGLOBIN 11.9 GM/dL (10.7-15.3); MCH 24.1 pg (25.7-33.7); MEAN CELL VOLUME 77.9 fl (80-96); MEAN PLT VOLUME 7.4 fl (7.5-11.1); PLATELET COUNT 364 10^3/uL (134-434); RBC 4.91 M/mm3 (3.60-5.2); RDW 18.5 % (11.6-15.6); WHITE BLOOD COUNT 25.3 K/mm3 (4.0-10.0)
[2023-03-10 10:27] LABS: POTASSIUM 4.3 mmol/L (3.5-5.1)
[2023-03-10 10:43] LABS: ALBUMIN 3.4 g/dl (3.4-5.0); CALCIUM 9.5 mg/dL (8.5-10.1); MAGNESIUM 2.1 mg/dL (1.8-2.4)
[2023-03-10 10:47] LABS: BILIRUBIN,TOTAL 0.4 mg/dL (0.2-1)
[2023-03-10 10:48] LABS: TOT PROT 6.8 g/dl (6.4-8.2)
[2023-03-10 11:31] LABS: ANISOCYTOSIS 0; HELMET CELLS 0; HOWELL-JOLLY BODIES 0; MACROCYTOSIS 0; OVALOCYTE 0; ROULEAU 0; SICKELED CELLS 0; TARGET CELLS 0; TEAR DROP CELLS 0; TOXIC GRANULATION 0
[2023-03-10] MEDS: ACETYLCYSTEINE 20% 200MG/ML 4 ML VIAL *FOR ORAL / INH USE ONLY NEB SCH ×2 (15:20→21:03)
[2023-03-10] MEDS: ALBUTEROL SO4 0.083% IH SOL 2.5 MG/3 ML VIAL.NEB. NEB SCH ×2 (15:20→21:04)
[2023-03-10] MEDS: ATORVASTATIN CA 40 MG TABLET (FP) PO SCH (22:11)
[2023-03-10] MEDS: INSULIN ASPART SLIDING SCALE (NOVOLOG) 1 VIAL SQ SCH (22:35)
[2023-03-11] MEDS: methylPREDNISolone NA SUCC 40 MG/1 ML VIAL IVPUSH SCH ×3 (02:05→17:19)
[2023-03-11] MEDS: NYSTATIN 500,000 UNITS/5 ML SUSPENSION PO SCH ×3 (06:23→17:19)
[2023-03-11] MEDS: INSULIN ASPART SLIDING SCALE (NOVOLOG) 1 VIAL SQ SCH ×4 (06:23→21:41)
[2023-03-11] MEDS: BUPRENORPHINE/NALOXONE 8 MG/2 MG FILM PACKET SL SCH ×3 (06:23→21:42)
[2023-03-11] MEDS: ACETYLCYSTEINE 20% 200MG/ML 4 ML VIAL *FOR ORAL / INH USE ONLY NEB SCH ×3 (07:15→20:04)
[2023-03-11] MEDS: ALBUTEROL SO4 0.083% IH SOL 2.5 MG/3 ML VIAL.NEB. NEB SCH ×3 (07:15→20:04)
[2023-03-11] MEDS: CYPROHEPTADINE HCL 4 MG TABLET PO SCH ×3 (07:28→21:42)
[2023-03-11] MEDS: FUROSEMIDE 40 MG TABLET (FP) PO SCH (09:28)
[2023-03-11] MEDS: FLUoxetine HCL 20 MG CAPSULE PO SCH (09:28)
[2023-03-11] MEDS: hydrOXYzine PAMOATE 25 MG CAPSULE (FP) PO SCH ×2 (09:28→21:42)
[2023-03-11] MEDS: SENNOSIDES 8.6MG TABLET (FP) PO SCH (09:28)
[2023-03-11] MEDS: LISINOPRIL 10 MG TABLET PO SCH (09:28)
[2023-03-11] MEDS: MINOXIDIL 2.5 MG TABLET PO SCH ×2 (09:29→21:43)
[2023-03-11] MEDS: ENOXAPARIN NA (PORCINE) 40 MG/0.4 ML DISP.SYRIN SQ SCH (09:29)
[2023-03-11] MEDS: FLUTICASONE/UMECLIDIN/VILANTER(200-62.5-25 TRELEGY ELLIPTA) INAHLER IH SCH (09:30)
[2023-03-11] MEDS: THEOPHYLLINE ANHYDROUS 100 MG CAP.ER.24H PO SCH ×2 (09:30→21:43)
[2023-03-11 11:23] LABS: HEMATOCRIT 36.2 % (32.4-45.2); HEMOGLOBIN 11.3 GM/dL (10.7-15.3); MCH 24.4 pg (25.7-33.7); MEAN CELL VOLUME 78.5 fl (80-96); MEAN PLT VOLUME 7.4 fl (7.5-11.1); PLATELET COUNT 334 10^3/uL (134-434); RBC 4.62 M/mm3 (3.60-5.2); RDW 18.5 % (11.6-15.6); WHITE BLOOD COUNT 26.4 K/mm3 (4.0-10.0)
[2023-03-11 11:31] LABS: POTASSIUM 4.4 mmol/L (3.5-5.1)
[2023-03-11 11:33] LABS: ALBUMIN 3.1 g/dl (3.4-5.0); CALCIUM 9.1 mg/dL (8.5-10.1); MAGNESIUM 1.9 mg/dL (1.8-2.4)
[2023-03-11 11:38] LABS: BILIRUBIN,TOTAL 0.3 mg/dL (0.2-1); TOT PROT 6.4 g/dl (6.4-8.2)
[2023-03-11 12:21] LABS: ANISOCYTOSIS 0; HELMET CELLS 0; HOWELL-JOLLY BODIES 0; MACROCYTOSIS 0; OVALOCYTE 0; ROULEAU 0; SICKELED CELLS 0; TARGET CELLS 0; TEAR DROP CELLS 0; TOXIC GRANULATION 0
[2023-03-11] MEDS ORDERED: FUROSEMIDE 40 MG/4 ML INJECTABLE VIAL IVPUSH ONE (12:46)
[2023-03-11] MEDS: ATORVASTATIN CA 40 MG TABLET (FP) PO SCH (21:42)
[2023-03-12] MEDS: NYSTATIN 500,000 UNITS/5 ML SUSPENSION PO SCH ×5 (00:50→23:28)
[2023-03-12] MEDS: methylPREDNISolone NA SUCC 40 MG/1 ML VIAL IVPUSH SCH ×2 (02:10→09:49)
[2023-03-12] MEDS: BUPRENORPHINE/NALOXONE 8 MG/2 MG FILM PACKET SL SCH ×3 (05:40→22:03)
[2023-03-12] MEDS: CYPROHEPTADINE HCL 4 MG TABLET PO SCH ×3 (05:55→22:04)
[2023-03-12] MEDS: INSULIN ASPART SLIDING SCALE (NOVOLOG) 1 VIAL SQ SCH ×4 (06:42→22:05)
[2023-03-12] MEDS: ACETYLCYSTEINE 20% 200MG/ML 4 ML VIAL *FOR ORAL / INH USE ONLY NEB SCH ×3 (08:15→20:58)
[2023-03-12] MEDS: ALBUTEROL SO4 0.083% IH SOL 2.5 MG/3 ML VIAL.NEB. NEB SCH ×3 (08:15→20:58)
[2023-03-12] MEDS: FUROSEMIDE 40 MG TABLET (FP) PO SCH (09:47)
[2023-03-12] MEDS: SENNOSIDES 8.6MG TABLET (FP) PO SCH (09:47)
[2023-03-12] MEDS: LISINOPRIL 10 MG TABLET PO SCH (09:47)
[2023-03-12] MEDS: hydrOXYzine PAMOATE 25 MG CAPSULE (FP) PO SCH ×2 (09:47→21:58)
[2023-03-12] MEDS: FLUoxetine HCL 20 MG CAPSULE PO SCH (09:47)
[2023-03-12] MEDS: MINOXIDIL 2.5 MG TABLET PO SCH ×2 (09:48→22:03)
[2023-03-12] MEDS: THEOPHYLLINE ANHYDROUS 100 MG CAP.ER.24H PO SCH ×2 (09:48→22:04)
[2023-03-12] MEDS: FLUTICASONE/UMECLIDIN/VILANTER(200-62.5-25 TRELEGY ELLIPTA) INAHLER IH SCH (09:49)
[2023-03-12] MEDS: ENOXAPARIN NA (PORCINE) 40 MG/0.4 ML DISP.SYRIN SQ SCH (09:49)
[2023-03-12 10:22] LABS: HEMOGLOBIN 11.7 GM/dL (10.7-15.3); MCHC 30.7 g/dl (32.0-36.0); MEAN CELL VOLUME 78.1 fl (80-96); MEAN PLT VOLUME 7.3 fl (7.5-11.1); PLATELET COUNT 385 10^3/uL (134-434); RBC 4.86 M/mm3 (3.60-5.2); RDW 18.5 % (11.6-15.6)
[2023-03-12 10:39] LABS: WHITE BLOOD COUNT 43.8 K/mm3 (4.0-10.0)
[2023-03-12 11:11] LABS: POTASSIUM 4.2 mmol/L (3.5-5.1)
[2023-03-12 11:13] LABS: CALCIUM 9.4 mg/dL (8.5-10.1)
[2023-03-12 11:14] LABS: BLOOD UREA NITROGEN 22.6 mg/dL (7-18)
[2023-03-12 11:16] LABS: ALBUMIN 3.2 g/dl (3.4-5.0)
[2023-03-12 11:17] LABS: CREATININE 0.9 mg/dL (0.55-1.3); MAGNESIUM 1.9 mg/dL (1.8-2.4)
[2023-03-12 11:19] LABS: BILIRUBIN,TOTAL 0.3 mg/dL (0.2-1); TOT PROT 6.6 g/dl (6.4-8.2)
[2023-03-12 11:42] LABS: ANISOCYTOSIS 0; MACROCYTOSIS 0
[2023-03-12] MEDS: FUROSEMIDE 40 MG/4 ML INJECTABLE VIAL IVPUSH SCH ×4 (12:04→14:09)
[2023-03-12 16:23] LABS: HEMATOCRIT 36.6 % (32.4-45.2); HEMOGLOBIN 11.5 GM/dL (10.7-15.3); MCH 24.2 pg (25.7-33.7); MCHC 31.5 g/dl (32.0-36.0); MEAN PLT VOLUME 7.4 fl (7.5-11.1); PLATELET COUNT 396 10^3/uL (134-434); RBC 4.75 M/mm3 (3.60-5.2)
[2023-03-12 16:30] VITALS: RESP 20
[2023-03-12 16:36] LABS: WHITE BLOOD COUNT 39.5 K/mm3 (4.0-10.0)
[2023-03-12 17:21] LABS: ANISOCYTOSIS 2+; MACROCYTOSIS 0; OVALOCYTE 2+; TEAR DROP CELLS 2+
[2023-03-12] MEDS ORDERED: INSULIN (NOVOLOG) ASPART 100 UNITS/ML 10ML VIAL ONE (18:12)
[2023-03-12] MEDS: ATORVASTATIN CA 40 MG TABLET (FP) PO SCH (21:58)
[2023-03-12] MEDS ORDERED: methylPREDNISolone NA SUCC 40 MG/1 ML VIAL IVPUSH SCH (22:00)
[2023-03-12 23:55] LABS: EPI CELLS 10 /uL (0-25.1); HYALINE CASTS 0 /uL (0-3.1); URINE APPEARANCE CLEAR; URINE BACTERIA 15 /uL (0-1359); URINE BILIRUBIN NEGATIVE (NEGATIVE); URINE COLOR YELLOW; URINE GLUCOSE (UA) NEGATIVE (NEGATIVE); URINE KETONE NEGATIVE (NEGATIVE); URINE LEUK ESTERASE 1+ (NEGATIVE); URINE NITRITE NEGATIVE (NEGATIVE); URINE PROTEIN NEGATIVE (NEGATIVE); URINE RBC 10 /uL (0-23.9); URINE WBC 53 /uL (0-25.8)
[2023-03-13] MEDS: INSULIN ASPART SLIDING SCALE (NOVOLOG) 1 VIAL SQ SCH ×4 (06:33→21:43)
[2023-03-13] MEDS: NYSTATIN 500,000 UNITS/5 ML SUSPENSION PO SCH ×4 (06:33→23:01)
[2023-03-13] MEDS: BUPRENORPHINE/NALOXONE 8 MG/2 MG FILM PACKET SL SCH ×3 (06:33→21:42)
[2023-03-13] MEDS: FUROSEMIDE 40 MG/4 ML INJECTABLE VIAL IVPUSH SCH ×2 (06:34→14:39)
[2023-03-13] MEDS: CYPROHEPTADINE HCL 4 MG TABLET PO SCH ×3 (06:34→21:42)
[2023-03-13] MEDS: ACETYLCYSTEINE 20% 200MG/ML 4 ML VIAL *FOR ORAL / INH USE ONLY NEB SCH ×3 (08:35→20:15)
[2023-03-13] MEDS: ALBUTEROL SO4 0.083% IH SOL 2.5 MG/3 ML VIAL.NEB. NEB SCH ×3 (08:35→20:15)
[2023-03-13 09:28] LABS: BASO % 0.1 % (0-2.0); HEMATOCRIT 36.8 % (32.4-45.2); HEMOGLOBIN 11.7 GM/dL (10.7-15.3); LYMPH % 4.8 % (8-40); MCH 24.7 pg (25.7-33.7); MCHC 31.8 g/dl (32.0-36.0); MEAN CELL VOLUME 77.6 fl (80-96); MEAN PLT VOLUME 7.4 fl (7.5-11.1); NEUT % 89.1 % (42.8-82.8); PLATELET COUNT 370 10^3/uL (134-434); RBC 4.73 M/mm3 (3.60-5.2); RDW 18.4 % (11.6-15.6)
[2023-03-13 09:45] LABS: POTASSIUM 4.1 mmol/L (3.5-5.1)
[2023-03-13 09:48] LABS: WHITE BLOOD COUNT 34.8 K/mm3 (4.0-10.0)
[2023-03-13 09:58] LABS: ALBUMIN 3.5 g/dl (3.4-5.0); BLOOD UREA NITROGEN 24.4 mg/dL (7-18); CALCIUM 9.3 mg/dL (8.5-10.1); MAGNESIUM 1.9 mg/dL (1.8-2.4)
[2023-03-13 10:02] LABS: BILIRUBIN,TOTAL 0.5 mg/dL (0.2-1)
[2023-03-13 10:03] LABS: TOT PROT 6.9 g/dl (6.4-8.2)
[2023-03-13] MEDS: methylPREDNISolone NA SUCC 40 MG/1 ML VIAL IVPUSH SCH (10:46)
[2023-03-13] MEDS: LISINOPRIL 10 MG TABLET PO SCH (10:46)
[2023-03-13] MEDS: ENOXAPARIN NA (PORCINE) 40 MG/0.4 ML DISP.SYRIN SQ SCH (10:46)
[2023-03-13] MEDS: FLUoxetine HCL 20 MG CAPSULE PO SCH (10:46)
[2023-03-13] MEDS: hydrOXYzine PAMOATE 25 MG CAPSULE (FP) PO SCH ×2 (10:46→21:42)
[2023-03-13] MEDS: SENNOSIDES 8.6MG TABLET (FP) PO SCH (10:46)
[2023-03-13] MEDS: MINOXIDIL 2.5 MG TABLET PO SCH ×2 (10:47→21:43)
[2023-03-13 10:51] LABS: ANISOCYTOSIS 3+; MACROCYTOSIS 0
[2023-03-13] MEDS: FLUTICASONE/UMECLIDIN/VILANTER(200-62.5-25 TRELEGY ELLIPTA) INAHLER IH SCH (10:53)
[2023-03-13] MEDS: THEOPHYLLINE ANHYDROUS 100 MG CAP.ER.24H PO SCH ×2 (12:07→21:43)
[2023-03-13] MEDS ORDERED: INSULIN (NOVOLOG) ASPART 100 UNITS/ML 10ML VIAL ONE (17:40)
[2023-03-13] MEDS: ATORVASTATIN CA 40 MG TABLET (FP) PO SCH (21:42)
[2023-03-14] MEDS: NYSTATIN 500,000 UNITS/5 ML SUSPENSION PO SCH ×2 (06:14→12:38)
[2023-03-14] MEDS: BUPRENORPHINE/NALOXONE 8 MG/2 MG FILM PACKET SL SCH ×2 (06:14→13:28)
[2023-03-14] MEDS: FUROSEMIDE 40 MG/4 ML INJECTABLE VIAL IVPUSH SCH ×2 (06:14→13:28)
[2023-03-14] MEDS: INSULIN ASPART SLIDING SCALE (NOVOLOG) 1 VIAL SQ SCH ×2 (06:14→12:24)
[2023-03-14] MEDS: CYPROHEPTADINE HCL 4 MG TABLET PO SCH ×2 (06:14→13:28)
[2023-03-14 07:11] VITALS: BMI 41.5
[2023-03-14] MEDS: ACETYLCYSTEINE 20% 200MG/ML 4 ML VIAL *FOR ORAL / INH USE ONLY NEB SCH ×2 (08:11→13:41)
[2023-03-14] MEDS: ALBUTEROL SO4 0.083% IH SOL 2.5 MG/3 ML VIAL.NEB. NEB SCH ×2 (08:12→13:41)
[2023-03-14 09:33] LABS: HEMATOCRIT 36.2 % (32.4-45.2); HEMOGLOBIN 11.6 GM/dL (10.7-15.3); MEAN CELL VOLUME 77.9 fl (80-96); MEAN PLT VOLUME 7.4 fl (7.5-11.1); PLATELET COUNT 367 10^3/uL (134-434); RBC 4.65 M/mm3 (3.60-5.2); RDW 18.4 % (11.6-15.6); WHITE BLOOD COUNT 23.6 K/mm3 (4.0-10.0)
[2023-03-14] MEDS: LISINOPRIL 10 MG TABLET PO SCH (09:36)
[2023-03-14] MEDS: methylPREDNISolone NA SUCC 40 MG/1 ML VIAL IVPUSH SCH (09:37)
[2023-03-14] MEDS: hydrOXYzine PAMOATE 25 MG CAPSULE (FP) PO SCH (09:37)
[2023-03-14] MEDS: SENNOSIDES 8.6MG TABLET (FP) PO SCH (09:37)
[2023-03-14] MEDS: FLUoxetine HCL 20 MG CAPSULE PO SCH (09:37)
[2023-03-14] MEDS: ENOXAPARIN NA (PORCINE) 40 MG/0.4 ML DISP.SYRIN SQ SCH (09:37)
[2023-03-14] MEDS: MINOXIDIL 2.5 MG TABLET PO SCH (09:38)
[2023-03-14] MEDS: THEOPHYLLINE ANHYDROUS 100 MG CAP.ER.24H PO SCH (09:38)
[2023-03-14] MEDS: FLUTICASONE/UMECLIDIN/VILANTER(200-62.5-25 TRELEGY ELLIPTA) INAHLER IH SCH (09:39)
[2023-03-14 09:58] LABS: CALCIUM 9.1 mg/dL (8.5-10.1)
[2023-03-14 09:59] LABS: ALBUMIN 3.2 g/dl (3.4-5.0); BLOOD UREA NITROGEN 20.9 mg/dL (7-18)
[2023-03-14 10:01] LABS: CREATININE 0.8 mg/dL (0.55-1.3)
[2023-03-14 10:02] LABS: BILIRUBIN,TOTAL 0.5 mg/dL (0.2-1); TOT PROT 6.7 g/dl (6.4-8.2)
[2023-03-14 10:34] LABS: ANISOCYTOSIS 0; MACROCYTOSIS 0
[2023-03-14] MEDS ORDERED: INSULIN (NOVOLOG) ASPART 100 UNITS/ML 10ML VIAL ONE (12:22)
[2023-03-14 14:17] VITALS: BP 147/77; PULSE 122; TEMP 98.1
== END 2023-03-14 14:18 | disposition home or self-care (01) | DRG 133 ==
LOC: JER 13:33 → JERBED 20:21 → J8W 03-01 13:23
PROVIDERS: ADMIT Internal Medicine; ATTEND Nurse Practitioner Acute Care
DX: J96.21 Acute and chronic respiratory failure with hypoxia (principal); I50.33 Acute on chronic diastolic (congestive) heart failure; J45.901 Unspecified asthma with (acute) exacerbation; F12.90 Cannabis use, unspecified, uncomplicated; L03.90 Cellulitis, unspecified; E66.9 Obesity, unspecified; Z68.41 Body mass index [BMI] 40.0-44.9, adult; I11.0 Hypertensive heart disease with heart failure; G30.9 Alzheimer's disease, unspecified; Z32.01 Encounter for pregnancy test, result positive; F11.20 Opioid dependence, uncomplicated; M06.9 Rheumatoid arthritis, unspecified; F41.8 Other specified anxiety disorders
CPT/HCPCS: 0241U-QW; 36415; 71045-TC-FY; 71046-TC-FY; 74177-TC; 76830-TC; 80053; 80061; 81003; 82105; 82378; 82962; 83036; 83735; 83880; 84100; 84439; 84443; 84484; 84702; 84703; 85025; 85610; 85730; 86301; 86304; 87040; 87086; 93005; 93010; 93306-TC; 93970-TC; 94150; 94640; 94761; 99285-25

== ENCOUNTER 2023-04-22 13:49 | Inpatient (IN) | payer OTHER ==
[2023-04-22] MEDS ORDERED: ALBUTEROL SO4 2.5/IPRATROPIUM 0.5 INH SOL 3 ML VIAL.NEB. NEB PRN (14:43)
[2023-04-22 14:48] VITALS: BMI 41.3
[2023-04-22] MEDS ORDERED: ALBUTEROL SO4 2.5/IPRATROPIUM 0.5 INH SOL 3 ML VIAL.NEB. NEB ONE ×2 (15:16→15:54)
[2023-04-22] MEDS ORDERED: methylPREDNISolone NA SUCC 125 MG/2 ML VIAL ONE (15:17)
[2023-04-22 15:19] LABS: HEMATOCRIT 34.2 % (32.4-45.2); HEMOGLOBIN 11.2 GM/dL (10.7-15.3); MCH 24.8 pg (25.7-33.7); MCHC 32.9 g/dl (32.0-36.0); MEAN CELL VOLUME 75.3 fl (80-96); MEAN PLT VOLUME 6.9 fl (7.5-11.1); PLATELET COUNT 649 10^3/uL (134-434); RBC 4.54 M/mm3 (3.60-5.2); RDW 16.2 % (11.6-15.6); WHITE BLOOD COUNT 13.8 K/mm3 (4.0-10.0)
[2023-04-22 15:32] LABS: ACTIVATED PTT 36.8 SECONDS (25.2-36.5); INR 1.15 (0.83-1.09); PROTHROMBIN TIME (PATIENT) 13.3 SEC (9.7-13.0)
[2023-04-22] MEDS: ALBUTEROL SO4 2.5/IPRATROPIUM 0.5 INH SOL 3 ML VIAL.NEB. NEB SCH (15:42)
[2023-04-22] MEDS: methylPREDNISolone NA SUCC 125 MG/2 ML VIAL IVPUSH ONE (15:42)
[2023-04-22 15:46] LABS: ALBUMIN 3.1 g/dl (3.4-5.0); CALCIUM 9.9 mg/dL (8.5-10.1); MAGNESIUM 1.8 mg/dL (1.8-2.4)
[2023-04-22 15:47] LABS: BLOOD UREA NITROGEN 5.9 mg/dL (7-18)
[2023-04-22 15:49] LABS: CREATININE 0.8 mg/dL (0.55-1.3); PHOSPHOROUS 3.4 mg/dL (2.5-4.9)
[2023-04-22 15:51] LABS: BILIRUBIN,TOTAL 0.5 mg/dL (0.2-1); TOT PROT 8.4 g/dl (6.4-8.2)
[2023-04-22 15:55] LABS: ERYTHROCYTE SEDIMENTATION RATE 91 mm/hr (0-20)
[2023-04-22] MEDS ORDERED: MAGNESIUM SULF 50% (8.12 MEQ/2 ML-1 GM VIAL) ONE (18:33)
[2023-04-22] MEDS ORDERED: ALBUTEROL SO4 0.083% IH SOL 2.5 MG/3 ML VIAL.NEB. NEB ONE (18:34)
[2023-04-22] MEDS ORDERED: MAGNESIUM SULFATE IN WATER 2 GM/50 ML IVPB IVPB ONE (18:37)
[2023-04-22] MEDS: MAGNESIUM SULF 50% (8.12 MEQ/2 ML-1 GM VIAL) IVPB ONE (18:48)
[2023-04-22] MEDS: ALBUTEROL SO4 0.083% IH SOL 2.5 MG/3 ML VIAL.NEB. NEB ONE (18:48)
[2023-04-22 19:25] LABS: CHLORIDE 103 mmol/L (98-107); POTASSIUM 3.1 mmol/L (3.5-5.1); SODIUM 136 mmol/L (136-145)
[2023-04-22 19:26] LABS: ANION GAP 10 mmol/L (4-13); CALCIUM 8.7 mg/dL (8.5-10.1); CO2 24 mmol/L (21-32); GLUCOSE,RANDOM 263 mg/dL (74-106)
[2023-04-22 19:27] LABS: BLOOD UREA NITROGEN 5.5 mg/dL (7-18)
[2023-04-22 19:30] LABS: CREATININE 0.9 mg/dL (0.55-1.3)
[2023-04-22] MEDS ORDERED: AZITHROMYCIN IVPB 500 MG/250 ML BAG IVPB ONE (20:03)
[2023-04-22] MEDS: AZITHROMYCIN IVPB 500 MG in DEXTROSE 5%-WATER - 250 ML IVPB ONE (20:11)
[2023-04-22] MEDS ORDERED: POTASSIUM CHLORIDE TABS 20 MEQ TABLET.ER (FP) PO ONE (21:17)
[2023-04-22] MEDS: POTASSIUM CHLORIDE TABS 20 MEQ TABLET.ER (FP) PO ONE (21:22)
[2023-04-22] MEDS ORDERED: MONTELUKAST NA 10 MG TABLET ONE (22:01)
[2023-04-22] MEDS ORDERED: ATORVASTATIN CA 40 MG TABLET (FP) ONE (22:01)
[2023-04-22] MEDS ORDERED: BUPRENORPHINE/NALOXONE 8 MG/2 MG FILM PACKET ONE (22:01)
[2023-04-22] MEDS: MONTELUKAST NA 10 MG TABLET PO SCH (22:06)
[2023-04-22] MEDS: BUPRENORPHINE/NALOXONE 8 MG/2 MG FILM PACKET SL SCH (22:06)
[2023-04-22] MEDS: ATORVASTATIN CA 40 MG TABLET (FP) PO SCH (22:06)
[2023-04-23] MEDS: diphenhydrAMINE HCL 25 MG CAPSULE (FP) PO ONE (00:48)
[2023-04-23] MEDS: ALBUTEROL SO4 2.5/IPRATROPIUM 0.5 INH SOL 3 ML VIAL.NEB. NEB ONE (01:35)
[2023-04-23] MEDS: methylPREDNISolone NA SUCC 40 MG/1 ML VIAL IVPUSH SCH (01:56)
[2023-04-23] MEDS: FUROSEMIDE 40 MG TABLET (FP) PO SCH (06:04)
[2023-04-23] MEDS: ALBUTEROL SO4 2.5/IPRATROPIUM 0.5 INH SOL 3 ML VIAL.NEB. NEB SCH (07:40)
[2023-04-23] MEDS: ENOXAPARIN NA (PORCINE) 40 MG/0.4 ML DISP.SYRIN SQ SCH (09:14)
[2023-04-23 09:32] LABS: BASO % 0.1 % (0-2.0); HEMATOCRIT 31.6 % (32.4-45.2); HEMOGLOBIN 10.4 GM/dL (10.7-15.3); LYMPH % 8.7 % (8-40); MCH 24.8 pg (25.7-33.7); MCHC 32.9 g/dl (32.0-36.0); MEAN CELL VOLUME 75.4 fl (80-96); MEAN PLT VOLUME 6.6 fl (7.5-11.1); MONO % 2.2 % (3.8-10.2); PLATELET COUNT 604 10^3/uL (134-434); RBC 4.19 M/mm3 (3.60-5.2); RDW 15.9 % (11.6-15.6); WHITE BLOOD COUNT 15.4 K/mm3 (4.0-10.0)
[2023-04-23 09:53] LABS: POTASSIUM 4.5 mmol/L (3.5-5.1)
[2023-04-23 09:57] LABS: BLOOD UREA NITROGEN 12.3 mg/dL (7-18)
[2023-04-23 09:58] LABS: ALBUMIN 3.2 g/dl (3.4-5.0); MAGNESIUM 2.1 mg/dL (1.8-2.4)
[2023-04-23 10:01] LABS: CREATININE 0.7 mg/dL (0.55-1.3); PHOSPHOROUS 4.1 mg/dL (2.5-4.9)
[2023-04-23 10:02] LABS: BILIRUBIN,TOTAL 0.2 mg/dL (0.2-1)
[2023-04-23 10:09] LABS: N-TERMINAL BNP 747.2 pg/ml (5-125)
[2023-04-23 10:36] LABS: ERYTHROCYTE SEDIMENTATION RATE 100 mm/hr (0-20)
[2023-04-23] MEDS: FLUoxetine HCL 20 MG CAPSULE PO SCH (10:49)
[2023-04-24] MEDS: AZITHROMYCIN IVPB 500 MG/250 ML BAG IVPB ONE (12:51)
[2023-04-24] MEDS: MONTELUKAST NA 10 MG TABLET PO SCH (13:13)
[2023-04-24] MEDS: methylPREDNISolone NA SUCC 40 MG/1 ML VIAL IVPUSH SCH ×2 (14:12→14:13)
[2023-04-24] MEDS: CYPROHEPTADINE HCL 4 MG TABLET PO SCH (15:05)
[2023-04-24] MEDS: MINOXIDIL 2.5 MG TABLET PO SCH (15:06)
[2023-04-24] MEDS: traZODone HCL 50 MG TABLET (FP) PO ONE (23:02)
[2023-04-25 06:44] LABS: BASO % 0.1 % (0-2.0); HEMATOCRIT 29.9 % (32.4-45.2); HEMOGLOBIN 9.7 GM/dL (10.7-15.3); LYMPH % 8.6 % (8-40); MCH 25.4 pg (25.7-33.7); MCHC 32.5 g/dl (32.0-36.0); MEAN PLT VOLUME 6.6 fl (7.5-11.1); MONO % 2.5 % (3.8-10.2); NEUT % 88.8 % (42.8-82.8); PLATELET COUNT 553 10^3/uL (134-434); RBC 3.84 M/mm3 (3.60-5.2); RDW 15.8 % (11.6-15.6)
[2023-04-25 07:19] LABS: POTASSIUM 4.7 mmol/L (3.5-5.1)
[2023-04-25 07:25] LABS: ALBUMIN 3.3 g/dl (3.4-5.0); CALCIUM 9.3 mg/dL (8.5-10.1)
[2023-04-25 07:26] LABS: BLOOD UREA NITROGEN 20.7 mg/dL (7-18)
[2023-04-25 07:29] LABS: CREATININE 0.7 mg/dL (0.55-1.3)
[2023-04-25 07:30] LABS: BILIRUBIN,TOTAL 0.2 mg/dL (0.2-1)
[2023-04-25 07:31] LABS: TOT PROT 7.1 g/dl (6.4-8.2)
[2023-04-25] MEDS: ALBUTEROL SO4 2.5/IPRATROPIUM 0.5 INH SOL 3 ML VIAL.NEB. NEB SCH (08:18)
[2023-04-25] MEDS: ENOXAPARIN NA (PORCINE) 40 MG/0.4 ML DISP.SYRIN SQ SCH (09:22)
[2023-04-25] MEDS: AZITHROMYCIN IVPB 250 MG in DEXTROSE 5%-WATER - 250 ML IVPB SCH (09:22)
[2023-04-25] MEDS: PANTOPRAZOLE 40 MG TABLET PO SCH (09:23)
[2023-04-25] MEDS: FLUoxetine HCL 20 MG CAPSULE PO SCH (09:23)
[2023-04-25] MEDS: FLUTICASONE/SALMETEROL (WIXELA) 100 MCG/50 MCG DISKUS IH SCH (14:42)
[2023-04-25] MEDS: FUROSEMIDE 40 MG TABLET (FP) PO SCH (14:42)
[2023-04-25] MEDS: BUPRENORPHINE/NALOXONE 8 MG/2 MG FILM PACKET SL SCH (14:56)
[2023-04-25] MEDS: ATORVASTATIN CA 40 MG TABLET (FP) PO SCH (21:33)
[2023-04-25] MEDS: MELATONIN 5 MG TABLETS PO PRN (23:57)
[2023-04-26 06:43] LABS: HEMATOCRIT 31.1 % (32.4-45.2); HEMOGLOBIN 9.8 GM/dL (10.7-15.3); MCH 24.3 pg (25.7-33.7); MCHC 31.4 g/dl (32.0-36.0); MEAN CELL VOLUME 77.3 fl (80-96); MEAN PLT VOLUME 6.7 fl (7.5-11.1); PLATELET COUNT 529 10^3/uL (134-434); RBC 4.02 M/mm3 (3.60-5.2); RDW 15.9 % (11.6-15.6); WHITE BLOOD COUNT 13.9 K/mm3 (4.0-10.0)
[2023-04-26 07:04] LABS: POTASSIUM 4.5 mmol/L (3.5-5.1)
[2023-04-26 07:15] LABS: CREATININE 0.7 mg/dL (0.55-1.3)
[2023-04-26 07:16] LABS: BILIRUBIN,TOTAL 0.2 mg/dL (0.2-1)
[2023-04-26 07:17] LABS: ALBUMIN 3.1 g/dl (3.4-5.0); BLOOD UREA NITROGEN 18.9 mg/dL (7-18); CALCIUM 9.3 mg/dL (8.5-10.1)
[2023-04-26 09:41] LABS: ANISOCYTOSIS 0; MACROCYTOSIS 0
[2023-04-26] MEDS: methylPREDNISolone NA SUCC 40 MG/1 ML VIAL IVPUSH SCH (09:56)
[2023-04-26] MEDS: SODIUM CHLORIDE 250 ML IV STA (14:48)
[2023-04-27 06:56] LABS: HEMATOCRIT 31.1 % (32.4-45.2); HEMOGLOBIN 9.8 GM/dL (10.7-15.3); MCH 24.4 pg (25.7-33.7); MCHC 31.5 g/dl (32.0-36.0); MEAN CELL VOLUME 77.3 fl (80-96); MEAN PLT VOLUME 6.7 fl (7.5-11.1); PLATELET COUNT 503 10^3/uL (134-434); RBC 4.02 M/mm3 (3.60-5.2); RDW 15.7 % (11.6-15.6); WHITE BLOOD COUNT 16.8 K/mm3 (4.0-10.0)
[2023-04-27 07:19] LABS: POTASSIUM 4.6 mmol/L (3.5-5.1)
[2023-04-27 07:26] LABS: CALCIUM 9.6 mg/dL (8.5-10.1)
[2023-04-27 07:27] LABS: ALBUMIN 3.1 g/dl (3.4-5.0); BLOOD UREA NITROGEN 18.9 mg/dL (7-18)
[2023-04-27 07:30] LABS: CREATININE 0.7 mg/dL (0.55-1.3)
[2023-04-27 07:32] LABS: BILIRUBIN,TOTAL 0.2 mg/dL (0.2-1)
[2023-04-27 10:23] LABS: ANISOCYTOSIS 0; HELMET CELLS 0; HOWELL-JOLLY BODIES 0; MACROCYTOSIS 0; OVALOCYTE 0; ROULEAU 0; SICKELED CELLS 0; TARGET CELLS 0; TEAR DROP CELLS 0; TOXIC GRANULATION 0
[2023-04-27] MEDS: FUROSEMIDE 40 MG/5 ML UNIT-DOSE CUP PO SCH (11:08)
[2023-04-28 07:43] LABS: HEMATOCRIT 31.3 % (32.4-45.2); HEMOGLOBIN 9.9 GM/dL (10.7-15.3); MCH 24.6 pg (25.7-33.7); MCHC 31.8 g/dl (32.0-36.0); MEAN CELL VOLUME 77.6 fl (80-96); MEAN PLT VOLUME 6.9 fl (7.5-11.1); PLATELET COUNT 498 10^3/uL (134-434); RBC 4.03 M/mm3 (3.60-5.2); RDW 15.9 % (11.6-15.6); WHITE BLOOD COUNT 18.4 K/mm3 (4.0-10.0)
[2023-04-28 07:53] LABS: POTASSIUM 4.6 mmol/L (3.5-5.1)
[2023-04-28 07:55] LABS: CALCIUM 9.3 mg/dL (8.5-10.1)
[2023-04-28 07:57] LABS: ALBUMIN 3.1 g/dl (3.4-5.0); BLOOD UREA NITROGEN 20.3 mg/dL (7-18)
[2023-04-28 08:00] LABS: BILIRUBIN,TOTAL 0.2 mg/dL (0.2-1); CREATININE 0.7 mg/dL (0.55-1.3); TOT PROT 6.8 g/dl (6.4-8.2)
[2023-04-28 10:48] LABS: ANISOCYTOSIS 0; MACROCYTOSIS 0
[2023-04-29] MEDS: NYSTATIN 500,000 UNITS/5 ML SUSPENSION PO SCH (17:33)
[2023-04-30 07:41] LABS: HEMATOCRIT 31.5 % (32.4-45.2); HEMOGLOBIN 9.9 GM/dL (10.7-15.3); MCH 24.8 pg (25.7-33.7); MCHC 31.3 g/dl (32.0-36.0); MEAN CELL VOLUME 79.1 fl (80-96); MEAN PLT VOLUME 7.7 fl (7.5-11.1); PLATELET COUNT 419 10^3/uL (134-434); RBC 3.98 M/mm3 (3.60-5.2); WHITE BLOOD COUNT 21.9 K/mm3 (4.0-10.0)
[2023-04-30 07:58] LABS: POTASSIUM 4.6 mmol/L (3.5-5.1)
[2023-04-30 08:11] LABS: CALCIUM 9.1 mg/dL (8.5-10.1)
[2023-04-30 08:15] LABS: CREATININE 0.7 mg/dL (0.55-1.3)
[2023-04-30 08:16] LABS: TOT PROT 6.4 g/dl (6.4-8.2)
[2023-04-30 08:17] LABS: BILIRUBIN,TOTAL 0.2 mg/dL (0.2-1)
[2023-04-30 08:57] LABS: ANISOCYTOSIS 3+; MACROCYTOSIS 0
[2023-04-30] MEDS: FUROSEMIDE 40 MG TABLET (FP) PO SCH (10:35)
[2023-04-30] MEDS: methylPREDNISolone NA SUCC 40 MG/1 ML VIAL IVPUSH SCH (10:36)
[2023-04-30] MEDS: FUROSEMIDE 40 MG/4 ML INJECTABLE VIAL IVPUSH SCH (16:56)
[2023-04-30] MEDS: FUROSEMIDE 40 MG/5 ML UNIT-DOSE CUP PO ONE (17:33)
[2023-05-01 06:31] LABS: HEMATOCRIT 30.1 % (32.4-45.2); HEMOGLOBIN 9.4 GM/dL (10.7-15.3); MCH 24.4 pg (25.7-33.7); MCHC 31.3 g/dl (32.0-36.0); MEAN CELL VOLUME 77.9 fl (80-96); MEAN PLT VOLUME 7.3 fl (7.5-11.1); PLATELET COUNT 400 10^3/uL (134-434); RBC 3.87 M/mm3 (3.60-5.2); WHITE BLOOD COUNT 22.5 K/mm3 (4.0-10.0)
[2023-05-01 06:48] LABS: POTASSIUM 4.6 mmol/L (3.5-5.1)
[2023-05-01 06:54] LABS: CALCIUM 8.2 mg/dL (8.5-10.1)
[2023-05-01 06:55] LABS: ALBUMIN 2.9 g/dl (3.4-5.0); BLOOD UREA NITROGEN 22.2 mg/dL (7-18)
[2023-05-01 06:58] LABS: CREATININE 0.8 mg/dL (0.55-1.3)
[2023-05-01 07:00] LABS: BILIRUBIN,TOTAL 0.2 mg/dL (0.2-1); TOT PROT 6.2 g/dl (6.4-8.2)
[2023-05-01 08:31] LABS: ANISOCYTOSIS 3+; MACROCYTOSIS 0
[2023-05-01] MEDS: methylPREDNISolone NA SUCC 40 MG/1 ML VIAL IVPUSH SCH (09:06)
[2023-05-01] MEDS: FUROSEMIDE 40 MG/4 ML INJECTABLE VIAL IVPUSH SCH (09:06)
[2023-05-02 06:49] LABS: HEMATOCRIT 30.9 % (32.4-45.2); HEMOGLOBIN 9.8 GM/dL (10.7-15.3); MCH 24.9 pg (25.7-33.7); MCHC 31.8 g/dl (32.0-36.0); MEAN CELL VOLUME 78.2 fl (80-96); MEAN PLT VOLUME 7.3 fl (7.5-11.1); PLATELET COUNT 363 10^3/uL (134-434); RBC 3.95 M/mm3 (3.60-5.2); RDW 16.2 % (11.6-15.6)
[2023-05-02 07:27] LABS: POTASSIUM 3.9 mmol/L (3.5-5.1)
[2023-05-02 07:34] LABS: CALCIUM 8.5 mg/dL (8.5-10.1)
[2023-05-02 07:35] LABS: ALBUMIN 2.9 g/dl (3.4-5.0); BLOOD UREA NITROGEN 22.6 mg/dL (7-18)
[2023-05-02 07:38] LABS: CREATININE 0.8 mg/dL (0.55-1.3)
[2023-05-02 07:39] LABS: BILIRUBIN,TOTAL 0.2 mg/dL (0.2-1)
[2023-05-02 09:26] LABS: ANISOCYTOSIS 0; MACROCYTOSIS 0
[2023-05-02 14:37] VITALS: BP 151/86; PULSE 111; RESP 17; TEMP 98.4
== END 2023-05-02 17:00 | disposition home or self-care (01) | DRG 140 ==
LOC: JER 13:49 → JERBED 19:05 → OBSVTOIN 19:20 → J5S 23:40 → J4W 04-24 17:04
PROVIDERS: ADMIT Internal Medicine
DX: J44.1 Chronic obstructive pulmonary disease with (acute) exacerbation (principal); F11.20 Opioid dependence, uncomplicated; J45.41 Moderate persistent asthma with (acute) exacerbation; I11.0 Hypertensive heart disease with heart failure; I50.22 Chronic systolic (congestive) heart failure; R00.0 Tachycardia, unspecified; B37.0 Candidal stomatitis; E87.6 Hypokalemia; D72.829 Elevated white blood cell count, unspecified; G47.00 Insomnia, unspecified; F13.20 Sedative, hypnotic or anxiolytic dependence, uncomplicated; F12.20 Cannabis dependence, uncomplicated; E78.5 Hyperlipidemia, unspecified; E66.01 Morbid (severe) obesity due to excess calories; Z68.41 Body mass index [BMI] 40.0-44.9, adult; L68.0 Hirsutism; F41.8 Other specified anxiety disorders; M06.9 Rheumatoid arthritis, unspecified; G47.33 Obstructive sleep apnea (adult) (pediatric); I87.2 Venous insufficiency (chronic) (peripheral)
CPT/HCPCS: 0241U-QW; 36415; 71045-TC-FY; 80048; 80053; 82728; 82962; 83540; 83550; 83735; 83880; 84100; 84484; 84702; 84703; 85025; 85027; 85610; 85651; 85730; 86140; 86200; 86308; 86431; 86663; 86664; 86665; 93005; 93010; 94150; 94640; 94761; 97116-GP; 97161-GP; 99285-25; G0378

== ENCOUNTER 2023-05-27 15:13 | Inpatient (IN) | payer OTHER ==
[2023-05-27] MEDS: ALBUTEROL SO4 2.5/IPRATROPIUM 0.5 INH SOL 3 ML VIAL.NEB. NEB SCH (15:30)
[2023-05-27] MEDS ORDERED: methylPREDNISolone NA SUCC 125 MG/2 ML VIAL ONE (15:49)
[2023-05-27] MEDS ORDERED: ALBUTEROL SO4 2.5/IPRATROPIUM 0.5 INH SOL 3 ML VIAL.NEB. NEB ONE (15:49)
[2023-05-27] MEDS ORDERED: MAGNESIUM SULFATE IN WATER 2 GM/50 ML IVPB IVPB ONE (15:50)
[2023-05-27] MEDS: methylPREDNISolone NA SUCC 125 MG/2 ML VIAL IVPUSH ONE (16:03)
[2023-05-27] MEDS: MAGNESIUM SULFATE IN WATER 2 GM/50 ML IVPB IVPB ONE (16:03)
[2023-05-27 16:11] LABS: VENOUS BASE EXCESS 4.1 mmol/L (-2-2); VENOUS O2 SATURATION 71.2 % (70-80); VENOUS PCO2 53.4 mmHg (38-52); VENOUS PH 7.371 (7.310-7.410)
[2023-05-27 16:12] LABS: BASO % 0.4 % (0-2.0); EOS % 1.8 % (0-4.5); HEMATOCRIT 30.1 % (32.4-45.2); HEMOGLOBIN 9.6 GM/dL (10.7-15.3); LYMPH % 15.4 % (8-40); MCH 24.2 pg (25.7-33.7); MCHC 31.9 g/dl (32.0-36.0); MEAN PLT VOLUME 6.6 fl (7.5-11.1); MONO % 9.8 % (3.8-10.2); NEUT % 72.6 % (42.8-82.8); PLATELET COUNT 623 10^3/uL (134-434); RBC 3.97 M/mm3 (3.60-5.2); RDW 16.9 % (11.6-15.6); WHITE BLOOD COUNT 8.6 K/mm3 (4.0-10.0)
[2023-05-27 16:23] LABS: INR 1.16 (0.83-1.09); PROTHROMBIN TIME (PATIENT) 13.4 SEC (9.7-13.0)
[2023-05-27 16:26] LABS: ACTIVATED PTT 30.1 SECONDS (25.2-36.5)
[2023-05-27 16:33] LABS: POTASSIUM 3.5 mmol/L (3.5-5.1)
[2023-05-27 16:35] LABS: CALCIUM 9.1 mg/dL (8.5-10.1)
[2023-05-27 16:36] LABS: ALBUMIN 2.8 g/dl (3.4-5.0); BLOOD UREA NITROGEN 5.8 mg/dL (7-18)
[2023-05-27 16:39] LABS: CREATININE 0.9 mg/dL (0.55-1.3)
[2023-05-27 16:40] LABS: BILIRUBIN,TOTAL 0.2 mg/dL (0.2-1); TOT PROT 6.7 g/dl (6.4-8.2)
[2023-05-27 16:43] LABS: N-TERMINAL BNP 228.9 pg/ml (5-125)
[2023-05-27] MEDS: ALBUTEROL SO4 0.083% IH SOL 2.5 MG/3 ML VIAL.NEB. NEB ONE (17:27)
[2023-05-27] MEDS ORDERED: ALBUTEROL SO4 2.5/IPRATROPIUM 0.5 INH SOL 3 ML VIAL.NEB. NEB PRN (17:43)
[2023-05-27] MEDS ORDERED: PANTOPRAZOLE 40 MG TABLET PO ONE (17:59)
[2023-05-27] MEDS ORDERED: AZITHROMYCIN IVPB 500 MG/250 ML BAG IVPB ONE (17:59)
[2023-05-27] MEDS: PANTOPRAZOLE 40 MG TABLET PO SCH (18:07)
[2023-05-27] MEDS: AZITHROMYCIN IVPB 500 MG/250 ML BAG IVPB SCH (18:07)
[2023-05-27] MEDS ORDERED: NYSTATIN 500,000 UNITS/5 ML SUSPENSION ONE (18:12)
[2023-05-27] MEDS: NYSTATIN 500,000 UNITS/5 ML SUSPENSION PO SCH (18:15)
[2023-05-27] MEDS ORDERED: ATORVASTATIN CA 40 MG TABLET (FP) ONE (20:51)
[2023-05-27] MEDS ORDERED: hydrOXYzine PAMOATE 25 MG CAPSULE (FP) PO ONE (20:51)
[2023-05-27] MEDS ORDERED: HEPARIN NA (PORCINE) 5,000 UNITS/ML 1ML VIAL ONE (20:52)
[2023-05-27] MEDS ORDERED: MONTELUKAST NA 10 MG TABLET ONE (20:52)
[2023-05-27] MEDS ORDERED: methylPREDNISolone NA SUCC 40 MG/1 ML VIAL ONE (20:53)
[2023-05-27] MEDS ORDERED: BUPRENORPHINE/NALOXONE 8 MG/2 MG FILM PACKET ONE (20:54)
[2023-05-27] MEDS: HEPARIN NA (PORCINE) 5,000 UNITS/ML 1ML VIAL SQ SCH (21:59)
[2023-05-27] MEDS: MONTELUKAST NA 10 MG TABLET PO SCH (21:59)
[2023-05-27] MEDS: THEOPHYLLINE ANHYDROUS 100 MG CAP.ER.24H PO SCH (21:59)
[2023-05-27] MEDS: CYPROHEPTADINE HCL 4 MG TABLET PO SCH (21:59)
[2023-05-27] MEDS: MINOXIDIL 2.5 MG TABLET PO SCH (21:59)
[2023-05-27] MEDS: methylPREDNISolone NA SUCC 40 MG/1 ML VIAL IVPUSH SCH (21:59)
[2023-05-27] MEDS: ATORVASTATIN CA 40 MG TABLET (FP) PO SCH (21:59)
[2023-05-27] MEDS: BUPRENORPHINE/NALOXONE 8 MG/2 MG FILM PACKET SL SCH (21:59)
[2023-05-27] MEDS: hydrOXYzine PAMOATE 25 MG CAPSULE (FP) PO SCH (21:59)
[2023-05-27] MEDS: ACETAMINOPHEN 325 MG TABLET (FP) PO PRN (22:42)
[2023-05-27 23:18] VITALS: BMI 42.0
[2023-05-28 02:44] LABS: PHENCYCLIDINE,URINE NEGATIVE (NEGATIVE); URINE BARBITURATES NEGATIVE (NEGATIVE); URINE BENZODIAZEPINES NEGATIVE (NEGATIVE)
[2023-05-28 02:45] LABS: METHADONE, UR NEGATIVE (NEGATIVE); OPIATES, URI NEGATIVE (NEGATIVE)
[2023-05-28 03:20] LABS: COCAINE, UR NEGATIVE (NEGATIVE); URINE AMPHETAMINES NEGATIVE (NEGATIVE)
[2023-05-28] MEDS: FUROSEMIDE 40 MG TABLET (FP) PO SCH (06:11)
[2023-05-28] MEDS: INSULIN ASPART SLIDING SCALE (NOVOLOG) 1 VIAL SQ SCH (06:39)
[2023-05-28 09:37] LABS: BASO % 0.1 % (0-2.0); HEMATOCRIT 28.9 % (32.4-45.2); HEMOGLOBIN 9.2 GM/dL (10.7-15.3); LYMPH % 8.3 % (8-40); MCH 24.1 pg (25.7-33.7); MCHC 31.9 g/dl (32.0-36.0); MEAN CELL VOLUME 75.5 fl (80-96); MEAN PLT VOLUME 6.7 fl (7.5-11.1); MONO % 1.5 % (3.8-10.2); NEUT % 90.1 % (42.8-82.8); PLATELET COUNT 642 10^3/uL (134-434); RBC 3.83 M/mm3 (3.60-5.2); WHITE BLOOD COUNT 9.6 K/mm3 (4.0-10.0)
[2023-05-28] MEDS: LISINOPRIL 10 MG TABLET PO SCH (09:43)
[2023-05-28] MEDS: FLUoxetine HCL 20 MG CAPSULE PO SCH (09:44)
[2023-05-28 09:54] LABS: POTASSIUM 3.7 mmol/L (3.5-5.1)
[2023-05-28 10:11] LABS: ALBUMIN 2.8 g/dl (3.4-5.0); CALCIUM 9.1 mg/dL (8.5-10.1); MAGNESIUM 1.8 mg/dL (1.8-2.4)
[2023-05-28 10:12] LABS: BLOOD UREA NITROGEN 10.3 mg/dL (7-18)
[2023-05-28 10:15] LABS: CREATININE 0.9 mg/dL (0.55-1.3)
[2023-05-28 10:16] LABS: BILIRUBIN,TOTAL 0.2 mg/dL (0.2-1); TOT PROT 7.2 g/dl (6.4-8.2)
[2023-05-28] MEDS ORDERED: INSULIN (NOVOLOG) ASPART 100 UNITS/ML 10ML VIAL ONE (10:18)
[2023-05-28] MEDS: FLUTICASONE/UMECLIDIN/VILANTER(200-62.5-25 TRELEGY ELLIPTA) INAHLER IH SCH (11:12)
[2023-05-28] MEDS: ALBUTEROL SO4 0.083% IH SOL 2.5 MG/3 ML VIAL.NEB. NEB SCH (13:36)
[2023-05-29 06:48] LABS: BASO % 0.1 % (0-2.0); HEMATOCRIT 27.6 % (32.4-45.2); HEMOGLOBIN 8.6 GM/dL (10.7-15.3); LYMPH % 6.9 % (8-40); MCH 23.7 pg (25.7-33.7); MCHC 31.3 g/dl (32.0-36.0); MEAN CELL VOLUME 75.7 fl (80-96); MEAN PLT VOLUME 6.8 fl (7.5-11.1); MONO % 3.3 % (3.8-10.2); NEUT % 89.7 % (42.8-82.8); PLATELET COUNT 656 10^3/uL (134-434); RBC 3.65 M/mm3 (3.60-5.2); RDW 16.5 % (11.6-15.6); WHITE BLOOD COUNT 18.5 K/mm3 (4.0-10.0)
[2023-05-29 07:02] LABS: POTASSIUM 4.4 mmol/L (3.5-5.1)
[2023-05-29 07:07] LABS: ALBUMIN 2.8 g/dl (3.4-5.0); BLOOD UREA NITROGEN 16.2 mg/dL (7-18); CALCIUM 9.1 mg/dL (8.5-10.1); MAGNESIUM 1.6 mg/dL (1.8-2.4)
[2023-05-29 07:10] LABS: CREATININE 0.9 mg/dL (0.55-1.3)
[2023-05-29 07:13] LABS: BILIRUBIN,TOTAL 0.2 mg/dL (0.2-1); TOT PROT 6.8 g/dl (6.4-8.2)
[2023-05-29] MEDS: MAGNESIUM OXIDE 400 MG TABLET (FP) PO ONE (08:31)
[2023-05-29] MEDS ORDERED: INSULIN (NOVOLOG) ASPART 100 UNITS/ML 10ML VIAL ONE (10:18)
[2023-05-29] MEDS: HEPARIN NA (PORCINE) 5,000 UNITS/ML 1ML VIAL SQ SCH (14:17)
[2023-05-29] MEDS: ALBUTEROL SO4 2.5/IPRATROPIUM 0.5 INH SOL 3 ML VIAL.NEB. NEB SCH (16:10)
[2023-05-29] MEDS: INSULIN ASPART SLIDING SCALE (NOVOLOG) 1 VIAL SQ SCH (16:42)
[2023-05-29] MEDS: MAGNESIUM SULFATE IN WATER 2 GM/50 ML IVPB IVPB ONE (16:43)
[2023-05-29 19:44] LABS: EPI CELLS 27 /uL (0-25.1); HYALINE CASTS 1 /uL (0-3.1); PH,URINE 5.5 (5.0-8.0); URINE APPEARANCE CLEAR; URINE BACTERIA 551 /uL (0-1359); URINE BILIRUBIN NEGATIVE (NEGATIVE); URINE COLOR YELLOW; URINE GLUCOSE (UA) TRACE (NEGATIVE); URINE KETONE NEGATIVE (NEGATIVE); URINE LEUK ESTERASE 2+ (NEGATIVE); URINE NITRITE NEGATIVE (NEGATIVE); URINE PROTEIN NEGATIVE (NEGATIVE); URINE RBC 14 /uL (0-23.9); URINE UROBILINOGEN 0.2 mg/dL (0.2-1.0); URINE WBC 207 /uL (0-25.8)
[2023-05-29] MEDS: ALBUTEROL SO4 0.083% IH SOL 2.5 MG/3 ML VIAL.NEB. NEB PRN (23:44)
[2023-05-30 06:43] LABS: HEMATOCRIT 28.2 % (32.4-45.2); HEMOGLOBIN 9.1 GM/dL (10.7-15.3); MCH 24.4 pg (25.7-33.7); MCHC 32.1 g/dl (32.0-36.0); MEAN CELL VOLUME 75.8 fl (80-96); MEAN PLT VOLUME 6.7 fl (7.5-11.1); PLATELET COUNT 684 10^3/uL (134-434); RBC 3.72 M/mm3 (3.60-5.2); RDW 16.9 % (11.6-15.6); WHITE BLOOD COUNT 17.5 K/mm3 (4.0-10.0)
[2023-05-30 07:11] LABS: POTASSIUM 4.7 mmol/L (3.5-5.1)
[2023-05-30 07:14] LABS: CALCIUM 10.3 mg/dL (8.5-10.1)
[2023-05-30 07:15] LABS: ALBUMIN 3.1 g/dl (3.4-5.0); BLOOD UREA NITROGEN 22.6 mg/dL (7-18)
[2023-05-30 07:16] LABS: MAGNESIUM 2.6 mg/dL (1.8-2.4)
[2023-05-30 07:17] LABS: CREATININE 0.9 mg/dL (0.55-1.3)
[2023-05-30 07:19] LABS: BILIRUBIN,TOTAL 0.2 mg/dL (0.2-1); TOT PROT 7.4 g/dl (6.4-8.2)
[2023-05-30 09:44] LABS: ANISOCYTOSIS 0; HELMET CELLS 0; HOWELL-JOLLY BODIES 0; MACROCYTOSIS 0; OVALOCYTE 0; ROULEAU 0; SICKELED CELLS 0; TARGET CELLS 0; TEAR DROP CELLS 0; TOXIC GRANULATION 0
[2023-05-30] MEDS: POLYETHYLENE GLYCOL (HEALTHYLAX) 3350 17 GM PACKET PO SCH (10:22)
[2023-05-30] MEDS: SENNOSIDES 8.8 MG/5 ML SYRUP PO SCH (10:45)
[2023-05-30] MEDS ORDERED: INSULIN (NOVOLOG) ASPART 100 UNITS/ML 10ML VIAL ONE ×2 (11:35→22:16)
[2023-05-30] MEDS: IRON SUCROSE INJECTION 200 MG in SODIUM CHLORIDE 100 ML IVPB ONE (12:07)
[2023-05-30 16:28] LABS: EPI CELLS 36 /uL (0-25.1); HYALINE CASTS 1 /uL (0-3.1); PH,URINE 5.5 (5.0-8.0); URINE APPEARANCE CLEAR; URINE BACTERIA 67 /uL (0-1359); URINE BILIRUBIN NEGATIVE (NEGATIVE); URINE COLOR YELLOW; URINE GLUCOSE (UA) NEGATIVE (NEGATIVE); URINE KETONE NEGATIVE (NEGATIVE); URINE LEUK ESTERASE 2+ (NEGATIVE); URINE NITRITE NEGATIVE (NEGATIVE); URINE PROTEIN NEGATIVE (NEGATIVE); URINE RBC 12 /uL (0-23.9); URINE UROBILINOGEN 0.2 mg/dL (0.2-1.0); URINE WBC 33 /uL (0-25.8)
[2023-05-31 07:51] LABS: HEMATOCRIT 29.4 % (32.4-45.2); HEMOGLOBIN 9.1 GM/dL (10.7-15.3); MCH 23.5 pg (25.7-33.7); MCHC 30.8 g/dl (32.0-36.0); MEAN CELL VOLUME 76.1 fl (80-96); MEAN PLT VOLUME 6.6 fl (7.5-11.1); PLATELET COUNT 628 10^3/uL (134-434); RBC 3.87 M/mm3 (3.60-5.2); RDW 17.3 % (11.6-15.6); WHITE BLOOD COUNT 15.7 K/mm3 (4.0-10.0)
[2023-05-31 08:06] LABS: POTASSIUM 4.6 mmol/L (3.5-5.1)
[2023-05-31 08:08] LABS: CALCIUM 9.5 mg/dL (8.5-10.1)
[2023-05-31 08:09] LABS: BLOOD UREA NITROGEN 22.1 mg/dL (7-18); MAGNESIUM 2.4 mg/dL (1.8-2.4)
[2023-05-31 08:12] LABS: CREATININE 0.9 mg/dL (0.55-1.3)
[2023-05-31 08:13] LABS: BILIRUBIN,TOTAL 0.1 mg/dL (0.2-1)
[2023-05-31 08:14] LABS: TOT PROT 6.9 g/dl (6.4-8.2)
[2023-05-31] MEDS ORDERED: INSULIN (NOVOLOG) ASPART 100 UNITS/ML 10ML VIAL ONE ×2 (08:23→21:45)
[2023-05-31 09:20] LABS: ANISOCYTOSIS 0; MACROCYTOSIS 0
[2023-05-31] MEDS: MINERAL OIL/PET HY-PHL TOPICAL OINTMENT 454 GM JAR TP SCH (10:20)
[2023-05-31] MEDS: methylPREDNISolone NA SUCC 40 MG/1 ML VIAL IVPUSH SCH (18:29)
[2023-06-01 07:40] LABS: HEMATOCRIT 29.4 % (32.4-45.2); HEMOGLOBIN 9.3 GM/dL (10.7-15.3); MCH 23.9 pg (25.7-33.7); MCHC 31.7 g/dl (32.0-36.0); MEAN CELL VOLUME 75.4 fl (80-96); MEAN PLT VOLUME 6.7 fl (7.5-11.1); PLATELET COUNT 574 10^3/uL (134-434); RDW 17.1 % (11.6-15.6); WHITE BLOOD COUNT 19.7 K/mm3 (4.0-10.0)
[2023-06-01 07:54] LABS: POTASSIUM 4.7 mmol/L (3.5-5.1)
[2023-06-01 07:56] LABS: ALBUMIN 2.9 g/dl (3.4-5.0); BLOOD UREA NITROGEN 20.3 mg/dL (7-18)
[2023-06-01 07:59] LABS: CREATININE 0.9 mg/dL (0.55-1.3)
[2023-06-01 08:01] LABS: BILIRUBIN,TOTAL 0.2 mg/dL (0.2-1); TOT PROT 6.5 g/dl (6.4-8.2)
[2023-06-01] MEDS: methylPREDNISolone NA SUCC 40 MG/1 ML VIAL IVPUSH SCH (17:22)
[2023-06-01] MEDS ORDERED: methylPREDNISolone NA SUCC 40 MG/1 ML VIAL IVPUSH SCH (22:00)
[2023-06-02 07:48] LABS: HEMATOCRIT 29.7 % (32.4-45.2); HEMOGLOBIN 9.4 GM/dL (10.7-15.3); MCH 23.8 pg (25.7-33.7); MCHC 31.7 g/dl (32.0-36.0); MEAN CELL VOLUME 75.2 fl (80-96); MEAN PLT VOLUME 6.7 fl (7.5-11.1); PLATELET COUNT 536 10^3/uL (134-434); RBC 3.95 M/mm3 (3.60-5.2); RDW 17.3 % (11.6-15.6); WHITE BLOOD COUNT 19.6 K/mm3 (4.0-10.0)
[2023-06-02 07:59] LABS: POTASSIUM 4.4 mmol/L (3.5-5.1)
[2023-06-02 08:01] LABS: CALCIUM 9.3 mg/dL (8.5-10.1)
[2023-06-02 08:02] LABS: ALBUMIN 2.9 g/dl (3.4-5.0); BLOOD UREA NITROGEN 20.5 mg/dL (7-18); MAGNESIUM 2.2 mg/dL (1.8-2.4)
[2023-06-02 08:05] LABS: CREATININE 0.8 mg/dL (0.55-1.3)
[2023-06-02 08:06] LABS: BILIRUBIN,TOTAL 0.2 mg/dL (0.2-1); TOT PROT 6.5 g/dl (6.4-8.2)
[2023-06-02] MEDS: INSULIN ASPART SLIDING SCALE (NOVOLOG) 1 VIAL SQ SCH (16:59)
[2023-06-02] MEDS ORDERED: INSULIN (NOVOLOG) ASPART 100 UNITS/ML 10ML VIAL ONE (20:29)
[2023-06-03] MEDS ORDERED: INSULIN (NOVOLOG) ASPART 100 UNITS/ML 10ML VIAL ONE ×2 (04:56→20:45)
[2023-06-03 08:04] LABS: HEMATOCRIT 30.7 % (32.4-45.2); HEMOGLOBIN 9.4 GM/dL (10.7-15.3); MCH 23.2 pg (25.7-33.7); MCHC 30.6 g/dl (32.0-36.0); MEAN CELL VOLUME 75.8 fl (80-96); MEAN PLT VOLUME 6.7 fl (7.5-11.1); PLATELET COUNT 527 10^3/uL (134-434); RBC 4.06 M/mm3 (3.60-5.2); RDW 17.1 % (11.6-15.6); WHITE BLOOD COUNT 25.2 K/mm3 (4.0-10.0)
[2023-06-03 08:22] LABS: POTASSIUM 4.4 mmol/L (3.5-5.1)
[2023-06-03 08:27] LABS: BLOOD UREA NITROGEN 21.6 mg/dL (7-18); MAGNESIUM 2.1 mg/dL (1.8-2.4)
[2023-06-03 08:31] LABS: CREATININE 0.9 mg/dL (0.55-1.3)
[2023-06-03 08:32] LABS: BILIRUBIN,TOTAL 0.3 mg/dL (0.2-1); TOT PROT 6.6 g/dl (6.4-8.2)
[2023-06-03] MEDS: FUROSEMIDE 40 MG/4 ML INJECTABLE VIAL IVPUSH ONE (11:47)
[2023-06-04] MEDS ORDERED: INSULIN (NOVOLOG) ASPART 100 UNITS/ML 10ML VIAL ONE (05:26)
[2023-06-04] MEDS: FUROSEMIDE 40 MG TABLET (FP) PO SCH (06:01)
[2023-06-04 09:38] LABS: HEMATOCRIT 31.7 % (32.4-45.2); HEMOGLOBIN 9.7 GM/dL (10.7-15.3); MCH 23.3 pg (25.7-33.7); MCHC 30.7 g/dl (32.0-36.0); MEAN PLT VOLUME 6.9 fl (7.5-11.1); PLATELET COUNT 489 10^3/uL (134-434); RBC 4.18 M/mm3 (3.60-5.2); RDW 17.4 % (11.6-15.6)
[2023-06-04 09:52] LABS: POTASSIUM 4.4 mmol/L (3.5-5.1)
[2023-06-04 09:54] LABS: ALBUMIN 3.2 g/dl (3.4-5.0); BLOOD UREA NITROGEN 23.8 mg/dL (7-18); CALCIUM 8.9 mg/dL (8.5-10.1)
[2023-06-04 09:58] LABS: CREATININE 0.9 mg/dL (0.55-1.3)
[2023-06-04 10:00] LABS: BILIRUBIN,TOTAL 0.3 mg/dL (0.2-1); TOT PROT 6.7 g/dl (6.4-8.2)
[2023-06-04] MEDS: FUROSEMIDE 40 MG/4 ML INJECTABLE VIAL IVPUSH SCH (14:52)
[2023-06-04] MEDS: IRON SUCROSE INJECTION 200 MG in SODIUM CHLORIDE 100 ML IVPB SCH (18:52)
[2023-06-04] MEDS: methylPREDNISolone NA SUCC 40 MG/1 ML VIAL IVPUSH SCH (18:56)
[2023-06-05] MEDS ORDERED: INSULIN (NOVOLOG) ASPART 100 UNITS/ML 10ML VIAL ONE ×2 (06:49→21:00)
[2023-06-05 07:09] LABS: HEMATOCRIT 30.2 % (32.4-45.2); HEMOGLOBIN 9.3 GM/dL (10.7-15.3); MCH 23.5 pg (25.7-33.7); MCHC 30.9 g/dl (32.0-36.0); PLATELET COUNT 398 10^3/uL (134-434); RBC 3.97 M/mm3 (3.60-5.2); RDW 17.2 % (11.6-15.6); WHITE BLOOD COUNT 26.2 K/mm3 (4.0-10.0)
[2023-06-05 07:29] LABS: POTASSIUM 4.4 mmol/L (3.5-5.1)
[2023-06-05 07:33] LABS: ALBUMIN 2.9 g/dl (3.4-5.0); MAGNESIUM 2.2 mg/dL (1.8-2.4)
[2023-06-05 07:35] LABS: CREATININE 0.9 mg/dL (0.55-1.3)
[2023-06-05 07:36] LABS: BILIRUBIN,TOTAL 0.2 mg/dL (0.2-1)
[2023-06-05 07:37] LABS: TOT PROT 6.1 g/dl (6.4-8.2)
[2023-06-05] MEDS: guaiFENesin 600 MG TABLET.ER (FP) PO SCH (21:53)
[2023-06-06] MEDS ORDERED: INSULIN (NOVOLOG) ASPART 100 UNITS/ML 10ML VIAL ONE (06:20)
[2023-06-06 08:16] LABS: POTASSIUM 4.2 mmol/L (3.5-5.1)
[2023-06-06 08:21] LABS: HEMATOCRIT 33.5 % (32.4-45.2); HEMOGLOBIN 10.3 GM/dL (10.7-15.3); MCH 23.5 pg (25.7-33.7); MCHC 30.8 g/dl (32.0-36.0); MEAN CELL VOLUME 76.4 fl (80-96); MEAN PLT VOLUME 7.2 fl (7.5-11.1); PLATELET COUNT 411 10^3/uL (134-434); RBC 4.38 M/mm3 (3.60-5.2); RDW 17.8 % (11.6-15.6); WHITE BLOOD COUNT 28.7 K/mm3 (4.0-10.0)
[2023-06-06 08:23] LABS: ALBUMIN 3.2 g/dl (3.4-5.0); CALCIUM 9.1 mg/dL (8.5-10.1)
[2023-06-06 08:24] LABS: MAGNESIUM 1.9 mg/dL (1.8-2.4)
[2023-06-06 08:25] LABS: BLOOD UREA NITROGEN 21.2 mg/dL (7-18)
[2023-06-06 08:26] LABS: CREATININE 0.9 mg/dL (0.55-1.3)
[2023-06-06 08:29] LABS: BILIRUBIN,TOTAL 0.3 mg/dL (0.2-1); TOT PROT 6.7 g/dl (6.4-8.2)
[2023-06-06] MEDS: methylPREDNISolone NA SUCC 40 MG/1 ML VIAL IVPUSH SCH (11:03)
[2023-06-06 15:17] VITALS: RESP 18
[2023-06-07 07:10] LABS: HEMATOCRIT 32.5 % (32.4-45.2); HEMOGLOBIN 10.1 GM/dL (10.7-15.3); MCH 23.7 pg (25.7-33.7); MEAN CELL VOLUME 76.7 fl (80-96); MEAN PLT VOLUME 7.4 fl (7.5-11.1); PLATELET COUNT 347 10^3/uL (134-434); RBC 4.24 M/mm3 (3.60-5.2); RDW 17.8 % (11.6-15.6); WHITE BLOOD COUNT 26.1 K/mm3 (4.0-10.0)
[2023-06-07 07:14] LABS: POTASSIUM 4.4 mmol/L (3.5-5.1)
[2023-06-07 07:20] LABS: BLOOD UREA NITROGEN 22.8 mg/dL (7-18); CALCIUM 8.7 mg/dL (8.5-10.1)
[2023-06-07 07:23] LABS: BILIRUBIN,TOTAL 0.3 mg/dL (0.2-1); CREATININE 0.8 mg/dL (0.55-1.3); TOT PROT 6.2 g/dl (6.4-8.2)
[2023-06-07 08:42] LABS: ANISOCYTOSIS 3+; MACROCYTOSIS 0
[2023-06-07 09:19] VITALS: BP 135/89; PULSE 110; TEMP 98
== END 2023-06-07 14:23 | disposition home health service (06) | DRG 140 ==
LOC: JER 15:13 → JERBED 17:14 → OBSVTOIN 17:45 → J7W 22:29
PROVIDERS: ADMIT Internal Medicine; ATTEND Internal Medicine
DX: J44.1 Chronic obstructive pulmonary disease with (acute) exacerbation (principal); I50.33 Acute on chronic diastolic (congestive) heart failure; F11.20 Opioid dependence, uncomplicated; J45.901 Unspecified asthma with (acute) exacerbation; Z68.41 Body mass index [BMI] 40.0-44.9, adult; I50.22 Chronic systolic (congestive) heart failure; D50.9 Iron deficiency anemia, unspecified; E66.9 Obesity, unspecified; I10 Essential (primary) hypertension; R73.9 Hyperglycemia, unspecified; T38.0X5A Adverse effect of glucocorticoids and synthetic analogues, initial encounter; X58.XXXA Exposure to other specified factors, initial encounter; Y93.9 Activity, unspecified; Y92.9 Unspecified place or not applicable; F32.9 Major depressive disorder, single episode, unspecified
CPT/HCPCS: 0241U-QW; 36415; 71045-TC-FY; 80053; 80198; 80307; 81003; 82272; 82607; 82728; 82746; 82803; 82962; 83540; 83550; 83735; 83880; 84443; 84484; 85025; 85027; 85610; 85730; 86850; 86900; 86901; 87040; 87077; 87086; 93005; 93010; 94010; 94150; 94640; 99285-25; G0378; J1644; J1756

== ENCOUNTER 2023-07-04 10:23 | Inpatient (IN) | payer OTHER ==
[2023-07-04] MEDS: ALBUTEROL SO4 2.5/IPRATROPIUM 0.5 INH SOL 3 ML VIAL.NEB. NEB SCH ×2 (11:00→16:13)
[2023-07-04] MEDS ORDERED: MAGNESIUM SULFATE IN WATER 2 GM/50 ML IVPB IVPB ONE (11:03)
[2023-07-04] MEDS ORDERED: ALBUTEROL SO4 2.5/IPRATROPIUM 0.5 INH SOL 3 ML VIAL.NEB. NEB ONE (11:04)
[2023-07-04] MEDS: MAGNESIUM SULFATE IN WATER 2 GM/50 ML IVPB IVPB ONE (11:30)
[2023-07-04 11:56] LABS: HEMATOCRIT 29.1 % (32.4-45.2); HEMOGLOBIN 9.4 GM/dL (10.7-15.3); MCH 24.3 pg (25.7-33.7); MCHC 32.4 g/dl (32.0-36.0); MEAN PLT VOLUME 7.2 fl (7.5-11.1); PLATELET COUNT 447 10^3/uL (134-434); RBC 3.88 M/mm3 (3.60-5.2); RDW 19.9 % (11.6-15.6); WHITE BLOOD COUNT 24.8 K/mm3 (4.0-10.0)
[2023-07-04 12:01] LABS: INR 1.15 (0.83-1.09); PROTHROMBIN TIME (PATIENT) 12.9 SEC (9.7-13.0)
[2023-07-04 12:09] LABS: POTASSIUM 3.7 mmol/L (3.5-5.1)
[2023-07-04 12:11] LABS: ALBUMIN 2.9 g/dl (3.4-5.0); BLOOD UREA NITROGEN 10.8 mg/dL (7-18); CALCIUM 8.9 mg/dL (8.5-10.1)
[2023-07-04 12:14] LABS: CREATININE 0.9 mg/dL (0.55-1.3)
[2023-07-04 12:16] LABS: BILIRUBIN,TOTAL 0.5 mg/dL (0.2-1); TOT PROT 6.6 g/dl (6.4-8.2)
[2023-07-04 12:19] LABS: N-TERMINAL BNP 137.4 pg/ml (5-125)
[2023-07-04 12:33] LABS: ANISOCYTOSIS 1+; MACROCYTOSIS 0
[2023-07-04] MEDS ORDERED: predniSONE 10 MG TABLET (UD) ONE (15:58)
[2023-07-04] MEDS ORDERED: predniSONE 20 MG TABLET (UD) ONE (15:58)
[2023-07-04] MEDS ORDERED: FUROSEMIDE 40 MG/4 ML INJECTABLE VIAL ONE (15:59)
[2023-07-04] MEDS: FUROSEMIDE 40 MG/4 ML INJECTABLE VIAL IVPUSH ONE (16:12)
[2023-07-04] MEDS: predniSONE 20 MG TABLET (UD) PO SCH (16:13)
[2023-07-04] MEDS: methylPREDNISolone NA SUCC 40 MG/1 ML VIAL IVPUSH SCH (16:14)
[2023-07-04 18:10] VITALS: BMI 42.3
[2023-07-04] MEDS: CYPROHEPTADINE HCL 4 MG TABLET PO SCH (21:45)
[2023-07-04] MEDS: QUEtiapine FUMARATE 200 MG TABLET PO SCH (21:46)
[2023-07-04] MEDS: HEPARIN NA (PORCINE) 5,000 UNITS/ML 1ML VIAL SQ SCH (21:46)
[2023-07-04] MEDS: MONTELUKAST NA 5 MG TAB.CHEW PO SCH (21:46)
[2023-07-04] MEDS ORDERED: ENOXAPARIN NA (PORCINE) 40 MG/0.4 ML DISP.SYRIN SQ SCH (22:00)
[2023-07-04] MEDS: ALBUTEROL SO4 2.5/IPRATROPIUM 0.5 INH SOL 3 ML VIAL.NEB. NEB PRN (22:41)
[2023-07-05] MEDS: levoFLOXacin 750 MG TABLET PO SCH (05:59)
[2023-07-05] MEDS: FUROSEMIDE 40 MG/4 ML INJECTABLE VIAL IVPUSH SCH (05:59)
[2023-07-05 08:15] LABS: EPI CELLS 14 /uL (0-25.1); HYALINE CASTS 0 /uL (0-3.1); URINE APPEARANCE TURBID; URINE BACTERIA 3 /uL (0-1359); URINE BILIRUBIN NEGATIVE (NEGATIVE); URINE COLOR YELLOW; URINE GLUCOSE (UA) NEGATIVE (NEGATIVE); URINE KETONE NEGATIVE (NEGATIVE); URINE LEUK ESTERASE NEGATIVE (NEGATIVE); URINE NITRITE NEGATIVE (NEGATIVE); URINE PROTEIN 1+ (NEGATIVE); URINE RBC 22 /uL (0-23.9); URINE UROBILINOGEN 0.2 mg/dL (0.2-1.0); URINE WBC 35 /uL (0-25.8)
[2023-07-05 08:32] LABS: HEMATOCRIT 31.2 % (32.4-45.2); HEMOGLOBIN 9.6 GM/dL (10.7-15.3); MCH 23.2 pg (25.7-33.7); MCHC 30.7 g/dl (32.0-36.0); MEAN CELL VOLUME 75.4 fl (80-96); MEAN PLT VOLUME 7.1 fl (7.5-11.1); PLATELET COUNT 448 10^3/uL (134-434); RBC 4.13 M/mm3 (3.60-5.2); RDW 20.1 % (11.6-15.6); WHITE BLOOD COUNT 20.9 K/mm3 (4.0-10.0)
[2023-07-05 08:33] LABS: POTASSIUM 3.7 mmol/L (3.5-5.1)
[2023-07-05 08:47] LABS: CALCIUM 9.9 mg/dL (8.5-10.1)
[2023-07-05 08:48] LABS: ALBUMIN 2.8 g/dl (3.4-5.0); BLOOD UREA NITROGEN 15.8 mg/dL (7-18); MAGNESIUM 1.9 mg/dL (1.8-2.4)
[2023-07-05 08:51] LABS: CREATININE 0.8 mg/dL (0.55-1.3); PHOSPHOROUS 3.4 mg/dL (2.5-4.9)
[2023-07-05 08:52] LABS: BILIRUBIN,TOTAL 0.6 mg/dL (0.2-1)
[2023-07-05 08:53] LABS: TOT PROT 6.9 g/dl (6.4-8.2)
[2023-07-05 09:19] LABS: ANISOCYTOSIS 3+; MACROCYTOSIS 0
[2023-07-05] MEDS: POLYETHYLENE GLYCOL (HEALTHYLAX) 3350 17 GM PACKET PO SCH (09:22)
[2023-07-05] MEDS: FLUoxetine HCL 20 MG CAPSULE PO SCH (09:22)
[2023-07-05] MEDS: PANTOPRAZOLE 40 MG TABLET PO SCH (09:22)
[2023-07-05] MEDS: BUPRENORPHINE/NALOXONE 1 EACH, BUPRENORPHINE/NALOXONE 2 EACH SL SCH (09:45)
[2023-07-05] MEDS ORDERED: BUPRENORPHINE/NALOXONE 12 MG-3 MG SL FILM PACKET SL SCH (10:00)
[2023-07-05] MEDS ORDERED: ENOXAPARIN NA (PORCINE) 40 MG/0.4 ML DISP.SYRIN SQ SCH (10:00)
[2023-07-05] MEDS: BUDESONIDE/FORMETEROL FUMARATE 160/4.5 mcg INHALER IH SCH (13:18)
[2023-07-05] MEDS: MINERAL OIL/PET HY-PHL TOPICAL OINTMENT 454 GM JAR TP SCH (16:08)
[2023-07-05] MEDS: methylPREDNISolone NA SUCC 40 MG/1 ML VIAL IVPUSH SCH (17:25)
[2023-07-05] MEDS: MELATONIN 5 MG TABLETS PO PRN (21:53)
[2023-07-05] MEDS: MONTELUKAST NA 10 MG TABLET PO SCH (21:53)
[2023-07-06 09:16] LABS: HEMATOCRIT 29.9 % (32.4-45.2); HEMOGLOBIN 9.4 GM/dL (10.7-15.3); MCH 23.7 pg (25.7-33.7); MCHC 31.5 g/dl (32.0-36.0); MEAN CELL VOLUME 75.2 fl (80-96); MEAN PLT VOLUME 7.4 fl (7.5-11.1); PLATELET COUNT 467 10^3/uL (134-434); RBC 3.98 M/mm3 (3.60-5.2); RDW 20.1 % (11.6-15.6); WHITE BLOOD COUNT 22.6 K/mm3 (4.0-10.0)
[2023-07-06] MEDS: TORSEMIDE 20 MG TABLET (FP) PO SCH (09:21)
[2023-07-06 09:35] LABS: POTASSIUM 4.7 mmol/L (3.5-5.1)
[2023-07-06 09:41] LABS: ALBUMIN 2.8 g/dl (3.4-5.0); CALCIUM 9.7 mg/dL (8.5-10.1); MAGNESIUM 1.9 mg/dL (1.8-2.4)
[2023-07-06 09:44] LABS: CREATININE 0.7 mg/dL (0.55-1.3)
[2023-07-06 09:45] LABS: BILIRUBIN,TOTAL 0.2 mg/dL (0.2-1); TOT PROT 6.6 g/dl (6.4-8.2)
[2023-07-06 09:47] LABS: ANISOCYTOSIS 3+; MACROCYTOSIS 0
[2023-07-06] MEDS: BUPRENORPHINE/NALOXONE 12 MG-3 MG SL FILM PACKET SL SCH (10:07)
[2023-07-06] MEDS: ZOLPIDEM TARTRATE 5 MG TABLET PO PRN (22:07)
[2023-07-07 09:06] VITALS: BP 145/95; PULSE 104; TEMP 98.4
[2023-07-07 09:17] LABS: HEMATOCRIT 30.2 % (32.4-45.2); HEMOGLOBIN 9.4 GM/dL (10.7-15.3); MCH 23.8 pg (25.7-33.7); MCHC 31.2 g/dl (32.0-36.0); MEAN CELL VOLUME 76.3 fl (80-96); MEAN PLT VOLUME 7.2 fl (7.5-11.1); PLATELET COUNT 438 10^3/uL (134-434); RBC 3.96 M/mm3 (3.60-5.2); RDW 20.2 % (11.6-15.6); WHITE BLOOD COUNT 21.4 K/mm3 (4.0-10.0)
[2023-07-07] MEDS: predniSONE 20 MG TABLET (UD) PO SCH (09:19)
[2023-07-07 09:47] VITALS: RESP 18
[2023-07-07 09:58] LABS: ALBUMIN 2.9 g/dl (3.4-5.0); BLOOD UREA NITROGEN 20.8 mg/dL (7-18); CALCIUM 9.5 mg/dL (8.5-10.1); MAGNESIUM 1.8 mg/dL (1.8-2.4)
[2023-07-07 10:00] LABS: CREATININE 0.9 mg/dL (0.55-1.3)
[2023-07-07 10:02] LABS: BILIRUBIN,TOTAL 0.3 mg/dL (0.2-1); TOT PROT 6.6 g/dl (6.4-8.2)
[2023-07-07 10:10] LABS: ANISOCYTOSIS 0; MACROCYTOSIS 0
== END 2023-07-07 11:15 | disposition home or self-care (01) | DRG 139 ==
LOC: JER 10:23 → JERBED 15:10 → J8W 17:41
PROVIDERS: ADMIT Internal Medicine; ATTEND Internal Medicine
DX: J18.9 Pneumonia, unspecified organism (principal); I11.0 Hypertensive heart disease with heart failure; J44.1 Chronic obstructive pulmonary disease with (acute) exacerbation; F11.20 Opioid dependence, uncomplicated; J45.901 Unspecified asthma with (acute) exacerbation; I50.32 Chronic diastolic (congestive) heart failure; E66.01 Morbid (severe) obesity due to excess calories; Z68.41 Body mass index [BMI] 40.0-44.9, adult; M06.9 Rheumatoid arthritis, unspecified
CPT/HCPCS: 0241U-QW; 36415; 71045-TC-FY; 71250-TC; 80053; 81003; 82962; 83036; 83735; 83880; 84100; 85025; 85610; 87040; 87086; 87899; 93005; 93010; 93970-TC; 94150; 94640; 99285-25; J1644

== ENCOUNTER 2023-08-05 18:05 | Inpatient (IN) | payer OTHER ==
[2023-08-05 18:26] VITALS: BMI 42.0
[2023-08-05] MEDS: ALBUTEROL SO4 2.5/IPRATROPIUM 0.5 INH SOL 3 ML VIAL.NEB. NEB ONE (19:35)
[2023-08-05] MEDS ORDERED: ALBUTEROL SO4 2.5/IPRATROPIUM 0.5 INH SOL 3 ML VIAL.NEB. NEB ONE (19:37)
[2023-08-05 19:43] LABS: BASO % 0.9 % (0-2.0); EOS % 1.3 % (0-4.5); HEMATOCRIT 26.8 % (32.4-45.2); HEMOGLOBIN 8.7 GM/dL (10.7-15.3); MCH 23.9 pg (25.7-33.7); MCHC 32.5 g/dl (32.0-36.0); MEAN CELL VOLUME 73.7 fl (80-96); MEAN PLT VOLUME 6.6 fl (7.5-11.1); MONO % 4.1 % (3.8-10.2); NEUT % 79.7 % (42.8-82.8); PLATELET COUNT 590 10^3/uL (134-434); RBC 3.64 M/mm3 (3.60-5.2); WHITE BLOOD COUNT 10.5 K/mm3 (4.0-10.0)
[2023-08-05 19:53] LABS: ACTIVATED PTT 38.3 SECONDS (25.2-36.5)
[2023-08-05 19:56] LABS: CHLORIDE 99 mmol/L (98-107); POTASSIUM 3.8 mmol/L (3.5-5.1); SODIUM 135 mmol/L (136-145)
[2023-08-05 19:58] LABS: CALCIUM 8.7 mg/dL (8.5-10.1)
[2023-08-05 19:59] LABS: ALBUMIN 2.2 g/dl (3.4-5.0); ANION GAP 6 mmol/L (4-13); BLOOD UREA NITROGEN 7.4 mg/dL (7-18); CO2 31 mmol/L (21-32); GLUCOSE,RANDOM 106 mg/dL (74-106); MAGNESIUM 1.3 mg/dL (1.8-2.4)
[2023-08-05 20:02] LABS: CREATININE 0.6 mg/dL (0.55-1.3); SGOT/AST 23 U/L (15-37); SGPT/ALT 10 U/L (13-61)
[2023-08-05 20:03] LABS: TOT PROT 6.6 g/dl (6.4-8.2)
[2023-08-05 20:04] LABS: BILIRUBIN,TOTAL 0.3 mg/dL (0.2-1)
[2023-08-05 20:05] LABS: ALK PHOS 102 U/L (45-117)
[2023-08-05 20:07] LABS: N-TERMINAL BNP 836.6 pg/ml (5-125)
[2023-08-05 20:11] LABS: INR 1.17 (0.83-1.09); PROTHROMBIN TIME (PATIENT) 13.4 SEC (9.7-13.0)
[2023-08-05] MEDS ORDERED: MAGNESIUM 1GM/D5W - 1 GM/100 ML IVPB IVPB ONE (20:45)
[2023-08-05] MEDS ORDERED: MAGNESIUM SULFATE IN WATER 2 GM/50 ML IVPB IVPB ONE (20:50)
[2023-08-05] MEDS ORDERED: AZITHROMYCIN IVPB 500 MG/250 ML BAG IVPB ONE (20:53)
[2023-08-05] MEDS ORDERED: FUROSEMIDE 40 MG/4 ML INJECTABLE VIAL ONE (20:53)
[2023-08-05] MEDS: MAGNESIUM SULFATE IN WATER 2 GM/50 ML IVPB IVPB ONE (21:04)
[2023-08-05] MEDS: FUROSEMIDE 40 MG/4 ML INJECTABLE VIAL IVPUSH ONE (21:04)
[2023-08-05 21:11] LABS: PH,URINE 5.5 (5.0-8.0); URINE APPEARANCE CLEAR; URINE BILIRUBIN NEGATIVE (NEGATIVE); URINE COLOR YELLOW; URINE GLUCOSE (UA) NEGATIVE (NEGATIVE); URINE KETONE NEGATIVE (NEGATIVE); URINE LEUK ESTERASE TRACE (NEGATIVE); URINE NITRITE NEGATIVE (NEGATIVE); URINE PROTEIN NEGATIVE (NEGATIVE); URINE UROBILINOGEN 0.2 mg/dL (0.2-1.0)
[2023-08-05 21:28] LABS: EPI CELLS 14.1 /uL (0-25.1); URINE RBC 5.2 /uL (0-23.9); URINE WBC 15.3 /uL (0-25.8)
[2023-08-05 21:29] LABS: URINE BACTERIA 7.5 /uL (0-1359)
[2023-08-05] MEDS: AZITHROMYCIN IVPB 500 MG in DEXTROSE 5%-WATER - 250 ML IVPB ONE (22:11)
[2023-08-05] MEDS ORDERED: INSULIN (NOVOLOG) ASPART 100 UNITS/ML 10ML VIAL ONE (22:30)
[2023-08-05 23:26] LABS: ALBUMIN 2.4 g/dl (3.4-5.0); BLOOD UREA NITROGEN 7.7 mg/dL (7-18); CALCIUM 8.6 mg/dL (8.5-10.1); MAGNESIUM 1.8 mg/dL (1.8-2.4)
[2023-08-05 23:30] LABS: CREATININE 0.9 mg/dL (0.55-1.3)
[2023-08-05 23:31] LABS: BILIRUBIN,TOTAL 0.2 mg/dL (0.2-1); TOT PROT 7.1 g/dl (6.4-8.2)
[2023-08-06] MEDS: POTASSIUM CHLORIDE TABS 20 MEQ TABLET.ER (FP) PO ONE ×2 (01:12→04:46)
[2023-08-06] MEDS: MAGNESIUM SULF 50% (8.12 MEQ/2 ML-1 GM VIAL) IVPB ONE ×2 (01:12→06:52)
[2023-08-06] MEDS ORDERED: POTASSIUM CHLORIDE TABS 20 MEQ TABLET.ER (FP) PO ONE ×2 (01:14→05:17)
[2023-08-06] MEDS ORDERED: MAGNESIUM SULFATE IN WATER 2 GM/50 ML IVPB IVPB ONE (01:14)
[2023-08-06] MEDS: LEVALBUTEROL HCL 0.63 MG/3 ML VIAL.NEB. IH SCH (01:38)
[2023-08-06] MEDS: methylPREDNISolone NA SUCC 40 MG/1 ML VIAL IVPUSH SCH (01:38)
[2023-08-06] MEDS ORDERED: methylPREDNISolone NA SUCC 40 MG/1 ML VIAL ONE (01:39)
[2023-08-06] MEDS ORDERED: LEVALBUTEROL HCL 0.63 MG/3 ML VIAL.NEB. IH ONE ×2 (01:39→09:00)
[2023-08-06] MEDS: BUDESONIDE/FORMETEROL FUMARATE 160/4.5 mcg INHALER IH SCH (02:05)
[2023-08-06 06:07] LABS: HEMATOCRIT 29.8 % (32.4-45.2); HEMOGLOBIN 9.5 GM/dL (10.7-15.3); MCH 23.9 pg (25.7-33.7); MEAN CELL VOLUME 74.6 fl (80-96); MEAN PLT VOLUME 6.8 fl (7.5-11.1); PLATELET COUNT 659 10^3/uL (134-434); RBC 3.99 M/mm3 (3.60-5.2); RDW 19.7 % (11.6-15.6); WHITE BLOOD COUNT 8.3 K/mm3 (4.0-10.0)
[2023-08-06 06:27] LABS: POTASSIUM 3.7 mmol/L (3.5-5.1)
[2023-08-06 06:31] LABS: ALBUMIN 2.4 g/dl (3.4-5.0); BLOOD UREA NITROGEN 8.4 mg/dL (7-18); CALCIUM 9.4 mg/dL (8.5-10.1); MAGNESIUM 2.1 mg/dL (1.8-2.4)
[2023-08-06 06:34] LABS: CREATININE 0.7 mg/dL (0.55-1.3); PHOSPHOROUS 3.2 mg/dL (2.5-4.9)
[2023-08-06 06:36] LABS: BILIRUBIN,TOTAL 0.3 mg/dL (0.2-1); TOT PROT 7.2 g/dl (6.4-8.2)
[2023-08-06] MEDS ORDERED: MAGNESIUM 1GM/D5W - 1 GM/100 ML IVPB IVPB ONE (06:51)
[2023-08-06 07:18] LABS: ARTERIAL BLD GAS O2 SATURATION 88.6 % (95-98); ARTERIAL BLOOD GAS BASE EXCESS 3.8 mmol/L (-2-2); ARTERIAL BLOOD GAS PO2 53.2 mmHg (80-100); ARTERIAL BLOOD GAS pH 7.439 (7.350-7.450)
[2023-08-06] MEDS ORDERED: DOXYCYCLINE HYCLATE 100 MG CAPSULE PO ONE (09:00)
[2023-08-06] MEDS ORDERED: ACETAMINOPHEN 325 MG TABLET (FP) PO PRN (09:54)
[2023-08-06] MEDS: ENOXAPARIN NA (PORCINE) 40 MG/0.4 ML DISP.SYRIN SQ SCH (10:54)
[2023-08-06] MEDS: FUROSEMIDE 40 MG/4 ML INJECTABLE VIAL IVPUSH SCH (10:54)
[2023-08-06] MEDS: BUPRENORPHINE/NALOXONE 8 MG/2 MG FILM PACKET SL SCH (10:55)
[2023-08-06] MEDS: DOXYCYCLINE HYCLATE 100 MG CAPSULE PO SCH (10:55)
[2023-08-06] MEDS: KETOROLAC TROMETHAMINE 30 MG/1 ML VIAL IVPUSH PRN (10:55)
[2023-08-06] MEDS ORDERED: INSULIN (NOVOLOG) ASPART 100 UNITS/ML 10ML VIAL ONE ×4 (12:35→12:37)
[2023-08-06] MEDS: INSULIN ASPART SLIDING SCALE (NOVOLOG) 1 VIAL SQ SCH (12:39)
[2023-08-06] MEDS: IRON SUCROSE INJECTION 200 MG in SODIUM CHLORIDE 100 ML IVPB ONE (13:32)
[2023-08-06] MEDS ORDERED: ALBUTEROL SO4 2.5/IPRATROPIUM 0.5 INH SOL 3 ML VIAL.NEB. NEB PRN (16:13)
[2023-08-06] MEDS: ZOLPIDEM TARTRATE 5 MG TABLET PO PRN (21:35)
[2023-08-06] MEDS: QUEtiapine FUMARATE 200 MG TABLET PO SCH (21:35)
[2023-08-07 06:38] LABS: BASO % 0.2 % (0-2.0); HEMATOCRIT 28.7 % (32.4-45.2); HEMOGLOBIN 9.1 GM/dL (10.7-15.3); LYMPH % 8.7 % (8-40); MCH 23.8 pg (25.7-33.7); MCHC 31.6 g/dl (32.0-36.0); MEAN CELL VOLUME 75.3 fl (80-96); MEAN PLT VOLUME 6.9 fl (7.5-11.1); MONO % 3.5 % (3.8-10.2); NEUT % 87.6 % (42.8-82.8); PLATELET COUNT 656 10^3/uL (134-434); RBC 3.81 M/mm3 (3.60-5.2); RDW 19.6 % (11.6-15.6); WHITE BLOOD COUNT 14.6 K/mm3 (4.0-10.0)
[2023-08-07 07:02] LABS: ALBUMIN 2.3 g/dl (3.4-5.0); BLOOD UREA NITROGEN 12.8 mg/dL (7-18); CALCIUM 9.3 mg/dL (8.5-10.1)
[2023-08-07 07:05] LABS: CREATININE 0.6 mg/dL (0.55-1.3)
[2023-08-07 07:06] LABS: BILIRUBIN,TOTAL 0.2 mg/dL (0.2-1)
[2023-08-07] MEDS: PANTOPRAZOLE 40 MG TABLET PO SCH (10:16)
[2023-08-07] MEDS: FLUoxetine HCL 20 MG CAPSULE PO SCH (10:16)
[2023-08-07] MEDS: IRON SUCROSE INJECTION 200 MG in SODIUM CHLORIDE 100 ML IVPB ONE (10:19)
[2023-08-07] MEDS: MINERAL OIL/PET HY-PHL TOPICAL OINTMENT 454 GM JAR TP SCH (13:26)
[2023-08-08] MEDS ORDERED: INSULIN ASPART SLIDING SCALE (NOVOLOG) 1 VIAL SQ ONE (07:15)
[2023-08-08 07:58] LABS: HEMATOCRIT 28.5 % (32.4-45.2); HEMOGLOBIN 9.1 GM/dL (10.7-15.3); MCH 23.7 pg (25.7-33.7); MCHC 31.8 g/dl (32.0-36.0); MEAN CELL VOLUME 74.4 fl (80-96); MEAN PLT VOLUME 6.5 fl (7.5-11.1); PLATELET COUNT 620 10^3/uL (134-434); RBC 3.83 M/mm3 (3.60-5.2); RDW 19.9 % (11.6-15.6); WHITE BLOOD COUNT 13.8 K/mm3 (4.0-10.0)
[2023-08-08 09:16] LABS: ANISOCYTOSIS 2+; MACROCYTOSIS 0
[2023-08-08] MEDS: methylPREDNISolone NA SUCC 40 MG/1 ML VIAL IVPUSH SCH ×2 (09:17→13:13)
[2023-08-08] MEDS: IRON SUCROSE INJECTION 200 MG in SODIUM CHLORIDE 100 ML IVPB ONE (10:00)
[2023-08-08] MEDS: SPIRONOLACTONE 25 MG TABLET PO SCH (15:06)
[2023-08-08] MEDS: HYDROCHLOROTHIAZIDE 25 MG TABLET (FP) PO SCH (15:06)
[2023-08-09 07:09] LABS: HEMATOCRIT 30.3 % (32.4-45.2); HEMOGLOBIN 9.6 GM/dL (10.7-15.3); MCH 23.9 pg (25.7-33.7); MCHC 31.5 g/dl (32.0-36.0); MEAN PLT VOLUME 6.6 fl (7.5-11.1); PLATELET COUNT 594 10^3/uL (134-434); RDW 19.3 % (11.6-15.6)
[2023-08-09 09:47] LABS: ANISOCYTOSIS 1+; MACROCYTOSIS 1+
[2023-08-09 10:30] LABS: POTASSIUM 3.9 mmol/L (3.5-5.1)
[2023-08-09 10:31] LABS: CALCIUM 9.7 mg/dL (8.5-10.1)
[2023-08-09 10:32] LABS: ALBUMIN 2.7 g/dl (3.4-5.0); BLOOD UREA NITROGEN 14.6 mg/dL (7-18)
[2023-08-09 10:35] LABS: CREATININE 0.7 mg/dL (0.55-1.3)
[2023-08-09 10:37] LABS: BILIRUBIN,TOTAL 0.2 mg/dL (0.2-1); TOT PROT 7.1 g/dl (6.4-8.2)
[2023-08-10 06:46] LABS: HEMATOCRIT 31.2 % (32.4-45.2); HEMOGLOBIN 9.6 GM/dL (10.7-15.3); MCH 23.3 pg (25.7-33.7); MCHC 30.8 g/dl (32.0-36.0); MEAN CELL VOLUME 75.7 fl (80-96); MEAN PLT VOLUME 6.7 fl (7.5-11.1); PLATELET COUNT 540 10^3/uL (134-434); RBC 4.12 M/mm3 (3.60-5.2); RDW 19.4 % (11.6-15.6); WHITE BLOOD COUNT 19.7 K/mm3 (4.0-10.0)
[2023-08-10 07:03] LABS: POTASSIUM 4.5 mmol/L (3.5-5.1)
[2023-08-10 07:06] LABS: CALCIUM 9.1 mg/dL (8.5-10.1)
[2023-08-10 07:07] LABS: ALBUMIN 2.5 g/dl (3.4-5.0); BLOOD UREA NITROGEN 17.4 mg/dL (7-18); MAGNESIUM 1.8 mg/dL (1.8-2.4)
[2023-08-10 07:09] LABS: CREATININE 0.7 mg/dL (0.55-1.3)
[2023-08-10 07:10] LABS: PHOSPHOROUS 3.9 mg/dL (2.5-4.9)
[2023-08-10 07:11] LABS: BILIRUBIN,TOTAL 0.2 mg/dL (0.2-1); TOT PROT 6.7 g/dl (6.4-8.2)
[2023-08-11 08:38] LABS: HEMATOCRIT 32.7 % (32.4-45.2); HEMOGLOBIN 10.4 GM/dL (10.7-15.3); MCH 23.7 pg (25.7-33.7); MCHC 31.7 g/dl (32.0-36.0); MEAN CELL VOLUME 74.9 fl (80-96); MEAN PLT VOLUME 6.6 fl (7.5-11.1); PLATELET COUNT 578 10^3/uL (134-434); RBC 4.37 M/mm3 (3.60-5.2); RDW 19.7 % (11.6-15.6); WHITE BLOOD COUNT 23.9 K/mm3 (4.0-10.0)
[2023-08-11 08:59] LABS: POTASSIUM 4.4 mmol/L (3.5-5.1)
[2023-08-11 09:12] LABS: CALCIUM 9.6 mg/dL (8.5-10.1)
[2023-08-11 09:13] LABS: BLOOD UREA NITROGEN 21.4 mg/dL (7-18)
[2023-08-11 09:16] LABS: CREATININE 0.8 mg/dL (0.55-1.3)
[2023-08-11 09:18] LABS: BILIRUBIN,TOTAL 0.2 mg/dL (0.2-1); TOT PROT 7.2 g/dl (6.4-8.2)
[2023-08-11 17:37] LABS: METHADONE, UR NEGATIVE (NEGATIVE); URINE AMPHETAMINES NEGATIVE (NEGATIVE); URINE BENZODIAZEPINES NEGATIVE (NEGATIVE)
[2023-08-11 17:38] LABS: OPIATES, URI NEGATIVE (NEGATIVE); PHENCYCLIDINE,URINE NEGATIVE (NEGATIVE); URINE BARBITURATES NEGATIVE (NEGATIVE)
[2023-08-11 17:40] LABS: COCAINE, UR NEGATIVE (NEGATIVE)
[2023-08-12 07:59] LABS: POTASSIUM 4.9 mmol/L (3.5-5.1)
[2023-08-12 08:06] LABS: CALCIUM 9.5 mg/dL (8.5-10.1)
[2023-08-12 08:07] LABS: BLOOD UREA NITROGEN 23.2 mg/dL (7-18)
[2023-08-12 08:10] LABS: CREATININE 0.8 mg/dL (0.55-1.3)
[2023-08-12 08:31] LABS: HEMATOCRIT 31.5 % (32.4-45.2); HEMOGLOBIN 10.1 GM/dL (10.7-15.3); MCH 24.4 pg (25.7-33.7); MCHC 32.2 g/dl (32.0-36.0); MEAN CELL VOLUME 75.6 fl (80-96); MEAN PLT VOLUME 6.9 fl (7.5-11.1); PLATELET COUNT 462 10^3/uL (134-434); RBC 4.16 M/mm3 (3.60-5.2); RDW 20.3 % (11.6-15.6); WHITE BLOOD COUNT 26.7 K/mm3 (4.0-10.0)
[2023-08-12 10:59] LABS: ANISOCYTOSIS 1+; MACROCYTOSIS 0
[2023-08-12] MEDS ORDERED: ACETAMINOPHEN 325 MG TABLET (FP) PO PRN (23:07)
[2023-08-12] MEDS: ALBUTEROL SO4 2.5/IPRATROPIUM 0.5 INH SOL 3 ML VIAL.NEB. NEB PRN (23:51)
[2023-08-13 00:52] VITALS: RESP 18
[2023-08-13] MEDS: BUPRENORPHINE/NALOXONE 8 MG/2 MG FILM PACKET SL SCH (06:32)
[2023-08-13] MEDS: INSULIN ASPART SLIDING SCALE (NOVOLOG) 1 VIAL SQ SCH (06:35)
[2023-08-13] MEDS: LEVALBUTEROL HCL 0.63 MG/3 ML VIAL.NEB. IH SCH (07:20)
[2023-08-13 09:22] LABS: HEMATOCRIT 31.4 % (32.4-45.2); HEMOGLOBIN 9.8 GM/dL (10.7-15.3); MCH 23.7 pg (25.7-33.7); MCHC 31.2 g/dl (32.0-36.0); MEAN CELL VOLUME 75.9 fl (80-96); MEAN PLT VOLUME 7.1 fl (7.5-11.1); PLATELET COUNT 426 10^3/uL (134-434); RBC 4.14 M/mm3 (3.60-5.2); RDW 19.7 % (11.6-15.6); WHITE BLOOD COUNT 28.3 K/mm3 (4.0-10.0)
[2023-08-13 09:45] LABS: POTASSIUM 4.2 mmol/L (3.5-5.1)
[2023-08-13 09:52] LABS: ALBUMIN 2.9 g/dl (3.4-5.0); BLOOD UREA NITROGEN 23.4 mg/dL (7-18); CALCIUM 9.2 mg/dL (8.5-10.1)
[2023-08-13] MEDS: HYDROCHLOROTHIAZIDE 25 MG TABLET (FP) PO SCH (09:52)
[2023-08-13] MEDS: PANTOPRAZOLE 40 MG TABLET PO SCH (09:52)
[2023-08-13] MEDS: FLUoxetine HCL 20 MG CAPSULE PO SCH (09:52)
[2023-08-13] MEDS: ENOXAPARIN NA (PORCINE) 40 MG/0.4 ML DISP.SYRIN SQ SCH (09:53)
[2023-08-13] MEDS: methylPREDNISolone NA SUCC 40 MG/1 ML VIAL IVPUSH SCH (09:53)
[2023-08-13] MEDS: MINERAL OIL/PET HY-PHL TOPICAL OINTMENT 454 GM JAR TP SCH (09:53)
[2023-08-13] MEDS: SPIRONOLACTONE 25 MG TABLET PO SCH (09:53)
[2023-08-13] MEDS: BUDESONIDE/FORMETEROL FUMARATE 160/4.5 mcg INHALER IH SCH (09:54)
[2023-08-13 09:55] LABS: CREATININE 0.8 mg/dL (0.55-1.3)
[2023-08-13 09:57] LABS: BILIRUBIN,TOTAL 0.2 mg/dL (0.2-1); TOT PROT 6.6 g/dl (6.4-8.2)
[2023-08-13] MEDS ORDERED: INSULIN ASPART SLIDING SCALE (NOVOLOG) 1 VIAL SQ ONE (18:41)
[2023-08-13] MEDS: QUEtiapine FUMARATE 200 MG TABLET PO SCH (21:10)
[2023-08-13] MEDS: ZOLPIDEM TARTRATE 5 MG TABLET PO PRN (21:11)
[2023-08-14 07:52] LABS: HEMOGLOBIN 9.9 GM/dL (10.7-15.3); MCH 23.8 pg (25.7-33.7); MCHC 30.9 g/dl (32.0-36.0); MEAN CELL VOLUME 76.8 fl (80-96); MEAN PLT VOLUME 7.5 fl (7.5-11.1); PLATELET COUNT 370 10^3/uL (134-434); RBC 4.17 M/mm3 (3.60-5.2); RDW 20.5 % (11.6-15.6); WHITE BLOOD COUNT 27.1 K/mm3 (4.0-10.0)
[2023-08-14 08:06] LABS: POTASSIUM 4.6 mmol/L (3.5-5.1)
[2023-08-14 08:12] LABS: ALBUMIN 2.9 g/dl (3.4-5.0); BLOOD UREA NITROGEN 22.5 mg/dL (7-18)
[2023-08-14 08:15] LABS: CREATININE 0.9 mg/dL (0.55-1.3)
[2023-08-14 08:16] LABS: BILIRUBIN,TOTAL 0.4 mg/dL (0.2-1)
[2023-08-14 08:17] LABS: TOT PROT 6.6 g/dl (6.4-8.2)
[2023-08-14 16:16] LABS: HEMATOCRIT 32.6 % (32.4-45.2); MCH 23.7 pg (25.7-33.7); MCHC 30.8 g/dl (32.0-36.0); MEAN CELL VOLUME 76.7 fl (80-96); MEAN PLT VOLUME 7.5 fl (7.5-11.1); PLATELET COUNT 399 10^3/uL (134-434); RBC 4.25 M/mm3 (3.60-5.2); RDW 19.9 % (11.6-15.6); WHITE BLOOD COUNT 29.9 K/mm3 (4.0-10.0)
[2023-08-14] MEDS: guaiFENesin 600 MG TABLET.ER (FP) PO SCH (21:56)
[2023-08-15 07:53] LABS: HEMATOCRIT 31.5 % (32.4-45.2); MCH 24.3 pg (25.7-33.7); MCHC 31.7 g/dl (32.0-36.0); MEAN CELL VOLUME 76.7 fl (80-96); MEAN PLT VOLUME 7.4 fl (7.5-11.1); PLATELET COUNT 347 10^3/uL (134-434); RDW 20.7 % (11.6-15.6); WHITE BLOOD COUNT 24.2 K/mm3 (4.0-10.0)
[2023-08-15 07:58] LABS: POTASSIUM 4.1 mmol/L (3.5-5.1)
[2023-08-15 08:08] LABS: ALBUMIN 2.8 g/dl (3.4-5.0)
[2023-08-15 08:11] LABS: CREATININE 0.8 mg/dL (0.55-1.3)
[2023-08-15 08:13] LABS: BILIRUBIN,TOTAL 0.2 mg/dL (0.2-1); TOT PROT 6.6 g/dl (6.4-8.2)
[2023-08-15] MEDS: methylPREDNISolone NA SUCC 40 MG/1 ML VIAL IVPUSH SCH (09:07)
[2023-08-15 09:57] LABS: ANISOCYTOSIS 2+; MACROCYTOSIS 1+
[2023-08-15 09:59] LABS: PLATELET ESTIMATE ADEQUATE
[2023-08-15] MEDS: ACETYLCYSTEINE 20% 200MG/ML 4 ML VIAL *FOR ORAL / INH USE ONLY NEB ONE (11:12)
[2023-08-15] MEDS: ALBUTEROL SO4 0.083% IH SOL 2.5 MG/3 ML VIAL.NEB. NEB ONE (11:13)
[2023-08-16] MEDS: predniSONE 20 MG TABLET (UD) PO SCH (09:21)
[2023-08-16 10:43] LABS: HEMATOCRIT 31.3 % (32.4-45.2); HEMOGLOBIN 9.6 GM/dL (10.7-15.3); MCH 23.9 pg (25.7-33.7); MCHC 30.6 g/dl (32.0-36.0); MEAN CELL VOLUME 78.1 fl (80-96); MEAN PLT VOLUME 7.7 fl (7.5-11.1); PLATELET COUNT 306 10^3/uL (134-434); RBC 4.01 M/mm3 (3.60-5.2); RDW 20.9 % (11.6-15.6); WHITE BLOOD COUNT 22.9 K/mm3 (4.0-10.0)
[2023-08-16 10:44] LABS: HEMOGLOBIN 9.5 GM/dL (10.7-15.3); MCHC 30.8 g/dl (32.0-36.0); MEAN CELL VOLUME 77.9 fl (80-96); MEAN PLT VOLUME 7.8 fl (7.5-11.1); PLATELET COUNT 316 10^3/uL (134-434); RBC 3.98 M/mm3 (3.60-5.2); RDW 20.7 % (11.6-15.6); WHITE BLOOD COUNT 22.9 K/mm3 (4.0-10.0)
[2023-08-16 11:15] VITALS: BP 137/81; PULSE 99; TEMP 98.7
[2023-08-16 11:23] LABS: CALCIUM 8.9 mg/dL (8.5-10.1)
[2023-08-16 11:24] LABS: ALBUMIN 2.9 g/dl (3.4-5.0); BLOOD UREA NITROGEN 21.9 mg/dL (7-18)
[2023-08-16 11:27] LABS: CREATININE 0.7 mg/dL (0.55-1.3)
[2023-08-16 11:29] LABS: BILIRUBIN,TOTAL 0.2 mg/dL (0.2-1); TOT PROT 6.4 g/dl (6.4-8.2)
[2023-08-16 11:46] LABS: ANISOCYTOSIS 1+; MACROCYTOSIS 0
== END 2023-08-16 14:40 | disposition home or self-care (01) | DRG 140 ==
LOC: JER 18:05 → JERBED 22:54 → J4S 08-06 13:28 → OBSVTOIN 08-07 13:28 → J6S 08-12 22:59
PROVIDERS: ADMIT Internal Medicine; ATTEND Internal Medicine
DX: J44.1 Chronic obstructive pulmonary disease with (acute) exacerbation (principal); F11.20 Opioid dependence, uncomplicated; J45.51 Severe persistent asthma with (acute) exacerbation; E66.01 Morbid (severe) obesity due to excess calories; Z68.41 Body mass index [BMI] 40.0-44.9, adult; F79 Unspecified intellectual disabilities; F41.8 Other specified anxiety disorders; M06.9 Rheumatoid arthritis, unspecified; E11.9 Type 2 diabetes mellitus without complications; L30.9 Dermatitis, unspecified; G47.00 Insomnia, unspecified; D50.9 Iron deficiency anemia, unspecified; L68.0 Hirsutism; I11.0 Hypertensive heart disease with heart failure; I50.32 Chronic diastolic (congestive) heart failure
CPT/HCPCS: 0241U-QW; 36415; 36600; 71045-TC-FY; 71250-TC; 80048; 80053; 80307; 81003; 82272; 82728; 82803; 82962; 83540; 83550; 83735; 83880; 84100; 84484; 84702; 84703; 85025; 85027; 85610; 85730; 87086; 93005; 93010; 94150; 94640; 94761; 99285-25; G0378; J1756

== ENCOUNTER 2023-08-21 09:05 | Inpatient (IN) | payer OTHER ==
[2023-08-21] MEDS ORDERED: ALBUTEROL SO4 2.5/IPRATROPIUM 0.5 INH SOL 3 ML VIAL.NEB. NEB ONE (09:57)
[2023-08-21] MEDS ORDERED: MAGNESIUM SULFATE IN WATER 2 GM/50 ML IVPB IVPB ONE (09:58)
[2023-08-21] MEDS: MAGNESIUM SULFATE IN WATER 2 GM/50 ML IVPB IVPB ONE (10:10)
[2023-08-21] MEDS: ALBUTEROL SO4 2.5/IPRATROPIUM 0.5 INH SOL 3 ML VIAL.NEB. NEB ONE (10:17)
[2023-08-21 10:28] LABS: HEMATOCRIT 26.5 % (32.4-45.2); HEMOGLOBIN 8.4 GM/dL (10.7-15.3); MCH 24.6 pg (25.7-33.7); MCHC 31.5 g/dl (32.0-36.0); MEAN CELL VOLUME 78.2 fl (80-96); MEAN PLT VOLUME 7.5 fl (7.5-11.1); PLATELET COUNT 284 10^3/uL (134-434); RBC 3.39 M/mm3 (3.60-5.2); RDW 22.4 % (11.6-15.6); WHITE BLOOD COUNT 13.6 K/mm3 (4.0-10.0)
[2023-08-21 10:36] LABS: INR 0.96 (0.83-1.09)
[2023-08-21 10:37] LABS: EPI CELLS 27 /uL (0-25.1); HYALINE CASTS 2 /uL (0-3.1); PH,URINE 6.5 (5.0-8.0); URINE APPEARANCE CLEAR; URINE BACTERIA 74 /uL (0-1359); URINE BILIRUBIN NEGATIVE (NEGATIVE); URINE COLOR YELLOW; URINE GLUCOSE (UA) 3+ (NEGATIVE); URINE KETONE NEGATIVE (NEGATIVE); URINE LEUK ESTERASE TRACE (NEGATIVE); URINE NITRITE NEGATIVE (NEGATIVE); URINE PROTEIN 2+ (NEGATIVE); URINE RBC 23 /uL (0-23.9); URINE WBC 191 /uL (0-25.8)
[2023-08-21 10:39] LABS: ACTIVATED PTT 29.7 SECONDS (25.2-36.5)
[2023-08-21 10:51] LABS: POTASSIUM 3.5 mmol/L (3.5-5.1)
[2023-08-21 10:53] LABS: ALBUMIN 2.6 g/dl (3.4-5.0); BLOOD UREA NITROGEN 11.3 mg/dL (7-18); CALCIUM 8.4 mg/dL (8.5-10.1); MAGNESIUM 1.7 mg/dL (1.8-2.4)
[2023-08-21 10:56] LABS: CREATININE 0.6 mg/dL (0.55-1.3)
[2023-08-21 10:58] LABS: BILIRUBIN,TOTAL 0.6 mg/dL (0.2-1); TOT PROT 6.3 g/dl (6.4-8.2)
[2023-08-21 11:37] LABS: ANISOCYTOSIS 2+; MACROCYTOSIS 1+
[2023-08-21 11:53] LABS: PLATELET ESTIMATE ADEQUATE
[2023-08-21 12:14] LABS: N-TERMINAL BNP 510.7 pg/ml (5-125)
[2023-08-21] MEDS: CEFEPIME HCL 2 GM VIAL (RESTRICTED TO ID) IVPB ONE (14:29)
[2023-08-21] MEDS ORDERED: CEFEPIME 2 GM/100 ML BAG IVPB ONE (14:29)
[2023-08-21] MEDS ORDERED: AZITHROMYCIN IVPB 500 MG/250 ML BAG IVPB ONE (15:05)
[2023-08-21] MEDS: AZITHROMYCIN IVPB 500 MG in DEXTROSE 5%-WATER - 250 ML IVPB ONE (15:14)
[2023-08-21] MEDS ORDERED: VANCOMYCIN 1 GRAM (PRE-DOCKED) 1,000 MG/250 ML BAG IVPB ONE (16:31)
[2023-08-21] MEDS ORDERED: BUPRENORPHINE/NALOXONE 8 MG/2 MG FILM PACKET ONE (16:57)
[2023-08-21] MEDS: FLUTICASONE/UMECLIDIN/VILANTER(100-62.5-25 TRELEGY ELLIPTA) INAHLER IH SCH (17:08)
[2023-08-21] MEDS: BUPRENORPHINE/NALOXONE 8 MG/2 MG FILM PACKET SL SCH (17:08)
[2023-08-21] MEDS: INSULIN ASPART SLIDING SCALE (NOVOLOG) 1 VIAL SQ SCH (17:08)
[2023-08-21] MEDS ORDERED: INSULIN ASPART SLIDING SCALE (NOVOLOG) 1 VIAL SQ ONE (17:09)
[2023-08-21] MEDS: methylPREDNISolone NA SUCC 40 MG/1 ML VIAL IVPUSH SCH (18:03)
[2023-08-21] MEDS: VANCOMYCIN 1,000 MG in DEXTROSE 5%-WATER - 250 ML IVPB ONE (18:03)
[2023-08-21 18:42] VITALS: BMI 41.1
[2023-08-21] MEDS: LEVALBUTEROL HCL 0.63 MG/3 ML VIAL.NEB. IH SCH (20:26)
[2023-08-21] MEDS: MONTELUKAST NA 10 MG TABLET PO SCH (21:09)
[2023-08-21] MEDS: ENOXAPARIN NA (PORCINE) 40 MG/0.4 ML DISP.SYRIN SQ SCH (21:10)
[2023-08-21] MEDS: ZOLPIDEM TARTRATE 5 MG TABLET PO PRN (21:10)
[2023-08-21] MEDS: QUEtiapine FUMARATE 200 MG TABLET PO SCH (21:10)
[2023-08-22 08:20] LABS: BASO % 0.1 % (0-2.0); HEMOGLOBIN 8.3 GM/dL (10.7-15.3); LYMPH % 7.3 % (8-40); MCH 24.1 pg (25.7-33.7); MCHC 30.8 g/dl (32.0-36.0); MEAN CELL VOLUME 78.2 fl (80-96); MEAN PLT VOLUME 7.6 fl (7.5-11.1); MONO % 4.3 % (3.8-10.2); NEUT % 88.3 % (42.8-82.8); PLATELET COUNT 309 10^3/uL (134-434); RBC 3.45 M/mm3 (3.60-5.2); RDW 22.6 % (11.6-15.6)
[2023-08-22 08:30] LABS: POTASSIUM 4.4 mmol/L (3.5-5.1)
[2023-08-22 08:35] LABS: ALBUMIN 2.5 g/dl (3.4-5.0); BLOOD UREA NITROGEN 15.7 mg/dL (7-18); CALCIUM 8.9 mg/dL (8.5-10.1); MAGNESIUM 2.2 mg/dL (1.8-2.4)
[2023-08-22 08:38] LABS: CREATININE 0.6 mg/dL (0.55-1.3); PHOSPHOROUS 2.6 mg/dL (2.5-4.9)
[2023-08-22 08:39] LABS: BILIRUBIN,TOTAL 0.2 mg/dL (0.2-1); TOT PROT 6.3 g/dl (6.4-8.2)
[2023-08-22] MEDS: HYDROCHLOROTHIAZIDE 25 MG TABLET (FP) PO SCH (09:48)
[2023-08-22] MEDS: PANTOPRAZOLE 40 MG TABLET PO SCH (09:48)
[2023-08-22] MEDS: FLUoxetine HCL 20 MG CAPSULE PO SCH (09:48)
[2023-08-22] MEDS: SPIRONOLACTONE 25 MG TABLET PO SCH (09:49)
[2023-08-22] MEDS: MINERAL OIL/PET HY-PHL TOPICAL OINTMENT 454 GM JAR TP SCH (13:46)
[2023-08-22] MEDS: MICONAZOLE NITRATE 14 GM/TUBE TUBE TP SCH (18:53)
[2023-08-23] MEDS ORDERED: INSULIN ASPART SLIDING SCALE (NOVOLOG) 1 VIAL SQ ONE ×2 (05:47→11:35)
[2023-08-23 08:27] LABS: HEMATOCRIT 29.1 % (32.4-45.2); MCH 24.3 pg (25.7-33.7); MEAN CELL VOLUME 78.4 fl (80-96); MEAN PLT VOLUME 7.3 fl (7.5-11.1); PLATELET COUNT 368 10^3/uL (134-434); RBC 3.71 M/mm3 (3.60-5.2); RDW 22.6 % (11.6-15.6)
[2023-08-23 08:39] LABS: POTASSIUM 4.4 mmol/L (3.5-5.1)
[2023-08-23 08:46] LABS: CREATININE 0.7 mg/dL (0.55-1.3)
[2023-08-23 08:48] LABS: BILIRUBIN,TOTAL 0.2 mg/dL (0.2-1); BLOOD UREA NITROGEN 19.1 mg/dL (7-18); TOT PROT 6.5 g/dl (6.4-8.2)
[2023-08-23 08:49] LABS: CALCIUM 9.4 mg/dL (8.5-10.1); MAGNESIUM 2.1 mg/dL (1.8-2.4)
[2023-08-23 08:50] LABS: ALBUMIN 2.8 g/dl (3.4-5.0)
[2023-08-23 10:06] LABS: ANISOCYTOSIS 3+; MACROCYTOSIS 0
[2023-08-24 09:29] LABS: HEMATOCRIT 30.5 % (32.4-45.2); HEMOGLOBIN 9.5 GM/dL (10.7-15.3); MCH 24.3 pg (25.7-33.7); MEAN CELL VOLUME 78.5 fl (80-96); MEAN PLT VOLUME 6.9 fl (7.5-11.1); PLATELET COUNT 380 10^3/uL (134-434); RBC 3.89 M/mm3 (3.60-5.2); RDW 22.7 % (11.6-15.6); WHITE BLOOD COUNT 13.8 K/mm3 (4.0-10.0)
[2023-08-24] MEDS: BUPRENORPHINE/NALOXONE 8 MG/2 MG FILM PACKET SL SCH (09:45)
[2023-08-24] MEDS: FUROSEMIDE 40 MG TABLET (FP) PO SCH (09:45)
[2023-08-24 09:52] LABS: POTASSIUM 4.5 mmol/L (3.5-5.1)
[2023-08-24 09:57] LABS: CALCIUM 9.1 mg/dL (8.5-10.1)
[2023-08-24 09:58] LABS: ALBUMIN 2.8 g/dl (3.4-5.0); BLOOD UREA NITROGEN 18.6 mg/dL (7-18); MAGNESIUM 1.9 mg/dL (1.8-2.4)
[2023-08-24 10:01] LABS: CREATININE 0.7 mg/dL (0.55-1.3)
[2023-08-24 10:02] LABS: BILIRUBIN,TOTAL 0.3 mg/dL (0.2-1); TOT PROT 6.3 g/dl (6.4-8.2)
[2023-08-24 10:27] LABS: ANISOCYTOSIS 3+; MACROCYTOSIS 0
[2023-08-24] MEDS: INSULIN ASPART SLIDING SCALE (NOVOLOG) 1 VIAL SQ SCH (11:23)
[2023-08-26 08:26] LABS: HEMATOCRIT 32.7 % (32.4-45.2); HEMOGLOBIN 10.2 GM/dL (10.7-15.3); MCH 24.4 pg (25.7-33.7); MEAN CELL VOLUME 78.7 fl (80-96); MEAN PLT VOLUME 6.9 fl (7.5-11.1); PLATELET COUNT 409 10^3/uL (134-434); RBC 4.16 M/mm3 (3.60-5.2); RDW 23.9 % (11.6-15.6)
[2023-08-26 08:33] LABS: POTASSIUM 4.5 mmol/L (3.5-5.1)
[2023-08-26 08:39] LABS: BLOOD UREA NITROGEN 23.7 mg/dL (7-18); CALCIUM 9.2 mg/dL (8.5-10.1)
[2023-08-26 08:40] LABS: MAGNESIUM 2.1 mg/dL (1.8-2.4)
[2023-08-26 08:42] LABS: BILIRUBIN,TOTAL 0.2 mg/dL (0.2-1); CREATININE 0.8 mg/dL (0.55-1.3)
[2023-08-26 08:44] LABS: TOT PROT 6.5 g/dl (6.4-8.2)
[2023-08-26 09:51] LABS: ANISOCYTOSIS 2+; MACROCYTOSIS 0
[2023-08-26] MEDS ORDERED: INSULIN ASPART SLIDING SCALE (NOVOLOG) 1 VIAL SQ ONE (17:19)
[2023-08-26] MEDS: FUROSEMIDE 40 MG TABLET (FP) PO SCH ×2 (17:29→17:35)
[2023-08-26] MEDS: NYSTATIN 500,000 UNITS/5 ML SUSPENSION PO SCH (17:29)
[2023-08-27 06:59] VITALS: PULSE 89; RESP 18; TEMP 98.4
[2023-08-27 07:24] VITALS: BP 149/88
[2023-08-27] MEDS ORDERED: INSULIN ASPART SLIDING SCALE (NOVOLOG) 1 VIAL SQ ONE (11:16)
== END 2023-08-27 12:30 | disposition home or self-care (01) | DRG 140 ==
LOC: JER 09:05 → JERBED 14:01 → OBSVTOIN 14:54 → J8W 17:36
PROVIDERS: ADMIT Internal Medicine; ATTEND Nurse Practitioner Family
DX: J44.1 Chronic obstructive pulmonary disease with (acute) exacerbation (principal); J45.41 Moderate persistent asthma with (acute) exacerbation; J18.9 Pneumonia, unspecified organism; J44.0 Chronic obstructive pulmonary disease with (acute) lower respiratory infection; F11.20 Opioid dependence, uncomplicated; E66.01 Morbid (severe) obesity due to excess calories; Z68.41 Body mass index [BMI] 40.0-44.9, adult; I11.0 Hypertensive heart disease with heart failure; I50.9 Heart failure, unspecified; G47.00 Insomnia, unspecified; D50.9 Iron deficiency anemia, unspecified; F41.8 Other specified anxiety disorders; M06.9 Rheumatoid arthritis, unspecified; L30.9 Dermatitis, unspecified; E11.9 Type 2 diabetes mellitus without complications
CPT/HCPCS: 0241U-QW; 36415; 71045-TC-FY; 71275-TC; 80053; 81003; 82962; 83036; 83735; 83880; 84100; 84484; 84702; 85025; 85610; 85730; 87086; 87899; 93005; 93010; 94150; 94761; 99285-25; G0378; Q9967